=== PATIENT | female | born 1965 | race Caucasian/White ===

== ENCOUNTER 2019-10-09 11:05 | Emergency (ER) | payer BC ==
[~2019-10-09] VITALS: Ht 165.1 cm; Wt 81.2 kg
[~2019-10-09 11:05] MED LIST: OMEP20TA23 PO
[2019-10-09] MEDS ORDERED: LIDOcaine 1% W/epiNEPHrine 1:200,000 10ml vial IJ ONE (12:20)
[2019-10-09 12:38] LABS: BASOPHILS % (AUTO) 1.1 % (0-1); EOSINOPHILS % (AUTO) 1.3 % (0-6); HEMATOCRIT 23.4 % (35.0-45.0); HEMOGLOBIN 7.2 g/dl (12.0-16.0); LYMPHOCYTES # (AUTO) 0.5 X10'3 (1.1-4.8); LYMPHOCYTES % (AUTO) 27.9 % (21-51); MEAN CORPUSCULAR HEMOGLOBIN 22.4 PG (27.0-31.0); MEAN CORPUSCULAR HGB CONC 30.6 g/dL (33.0-36.5); MEAN PLATELET VOLUME 9.5 FL (7.4-10.4); MONOCYTES # (AUTO) 0.4 X10'3 (0-0.9); MONOCYTES % (AUTO) 19.8 % (2-12); NEUTROPHILS % (AUTO) 49.9 % (42-75); PLATELET COUNT 75 X10'3 (140-440); RED CELL DISTRIBUTION WIDTH 19.5 % (11.5-14.5); WHITE BLOOD COUNT 1.9 X10'3 (4.5-11.0)
[2019-10-09 12:53] LABS: ALANINE AMINOTRANSFERASE 15 U/L (12-78); ALBUMIN 2.3 G/DL (3.4-5.0); ALBUMIN/GLOBULIN RATIO 0.6 (1.1-1.5); ALKALINE PHOSPHATASE 221 IU/L (46-116); AMYLASE 31 U/L (25-115); ANION GAP 8 (8-16); ASPARTATE AMINO TRANSFERASE 49 U/L (10-37); BILIRUBIN,TOTAL 1.8 MG/DL (0.1-1.0); BLOOD UREA NITROGEN 5 MG/DL (7-18); BUN/CREATININE RATIO 9.3 (6.6-38.0); CALCIUM 7.7 MG/DL (8.5-10.1); CHLORIDE 106 MMOL/L (99-107); CREATININE 0.54 MG/DL (0.40-0.90); GLUCOSE 76 MG/DL (70-104); LIPASE 310 U/L (73-393); POTASSIUM 3.5 MMOL/L (3.5-5.1); SODIUM 138 MMOL/L (135-145); TOTAL CARBON DIOXIDE 23.8 MMOL/L (24-32); TOTAL PROTEIN 6.4 G/DL (6.4-8.2); eGFR > 90 ML/MIN
[2019-10-09 12:57] LABS: PLATELET ESTIMATE DECREASED; TOTAL CELLS COUNTED 100
[2019-10-09 12:58] LABS: ANISOCYTOSIS 2+; HYPOCHROMASIA 1+; MICROCYTOSIS 1+; POLYCHROMASIA FEW; SCHISTOCYTES FEW; TARGET CELLS FEW
[2019-10-09 13:04] LABS: PARTIAL THROMBOPLASTIN TIME 31 SECONDS (22-32)
[2019-10-09 13:54] LABS: CLARITY,URINE SLIGHTLY CLOUDY (Clear); COLOR,URINE YELLOW (Yellow); GLUCOSE, URINE NEGATIVE (Neg); KETONES,URINE NEGATIVE (Neg); LEUKOCYTE ESTERASE ,URINE NEGATIVE (Neg); NITRITES, URINE NEGATIVE (Neg); OCCULT BLOOD,URINE NEGATIVE (Neg); PH,URINE 5.5 (4.8-8.0); PROTEIN,URINE NEGATIVE (Neg)
[2019-10-09 14:10] LABS: BACTERIA,URINE FEW /HPF (Neg); MUCUS STRANDS FEW /LPF (Neg); RBC,URINE 0-2 /HPF (0-2); SQUAMOUS EPITHELIAL CELL,UR MANY /LPF (FEW); UA COLLECTION TYPE CLN CATCH MIDSTREAM; WBC,URINE 0-4 /HPF (0-4)
[2019-10-09 15:47] VITALS: BP 120/69
--- NOTE | 2019-10-09 15:59 | NUR ---
approx 10 L removed from paracentesis. Pt reported improvement in abdominal pressure and discomfort, relief of dyspnea.
== END 2019-10-09 15:50 | disposition home or self-care (01) ==
LOC: ER 11:06
DX: R18.8 Other ascites (principal); K74.60 Unspecified cirrhosis of liver; D50.9 Iron deficiency anemia, unspecified; D72.819 Decreased white blood cell count, unspecified; D69.6 Thrombocytopenia, unspecified; Z79.899 Other long term (current) drug therapy
CPT/HCPCS: 36415; 49082; 80053; 81001; 82150; 83690; 85025; 85610; 85730; 99285

== ENCOUNTER 2019-11-05 07:01 | Day surgery (SDC) | payer BC ==
[2019-11-05] VITALS (9 sets, daily range): BP systolic 97–112; BP diastolic 54–70
[~2019-11-05] VITALS: Ht 165.1 cm; Wt 74.8 kg
[~2019-11-05 07:01] MED LIST changes: +FURO-150 PO; +SPIR50TA5 PO
[2019-11-05] MEDS ORDERED: albumin 25% 100mL bottle x 1 IV PRN (07:35)
[2019-11-05] MEDS ORDERED: normal saline 1000ml 1,000 ML IV PRN (07:35)
== END 2019-11-05 11:00 | disposition home or self-care (01) ==
LOC: SSTAY O 07:01
PROVIDERS: ATTEND Radiology Diagnostic Radiology
DX: K70.31 Alcoholic cirrhosis of liver with ascites (principal); K21.9 Gastro-esophageal reflux disease without esophagitis; Z79.899 Other long term (current) drug therapy
CPT/HCPCS: 49083; C1729; P9047

== ENCOUNTER 2019-11-17 21:26 | Emergency (ER) | payer BC ==
[~2019-11-17] VITALS: Ht 165.1 cm; Wt 72.7 kg
[2019-11-17 22:32] LABS: BASOPHILS % (AUTO) 1.2 % (0-1); EOSINOPHILS # (AUTO) 0.1 X10'3 (0-0.9); EOSINOPHILS % (AUTO) 2.4 % (0-6); HEMATOCRIT 24.7 % (35.0-45.0); HEMOGLOBIN 7.5 g/dl (12.0-16.0); LYMPHOCYTES # (AUTO) 0.9 X10'3 (1.1-4.8); MEAN CORPUSCULAR HEMOGLOBIN 21.4 PG (27.0-31.0); MEAN CORPUSCULAR HGB CONC 30.2 g/dL (33.0-36.5); MEAN CORPUSCULAR VOLUME 70.9 FL (78-98); MEAN PLATELET VOLUME 8.5 FL (7.4-10.4); MONOCYTES # (AUTO) 0.4 X10'3 (0-0.9); MONOCYTES % (AUTO) 14.8 % (2-12); NEUTROPHILS # (AUTO) 1.6 X10'3 (1.8-7.7); NEUTROPHILS % (AUTO) 52.6 % (42-75); PLATELET COUNT 82 X10'3 (140-440); RED BLOOD COUNT 3.49 X10'6 (4.20-5.60); RED CELL DISTRIBUTION WIDTH 20.2 % (11.5-14.5)
[2019-11-17 22:44] LABS: PARTIAL THROMBOPLASTIN TIME 30 SECONDS (22-32)
[2019-11-17 22:46] LABS: ALANINE AMINOTRANSFERASE 14 U/L (12-78); ALBUMIN 2.3 G/DL (3.4-5.0); ALBUMIN/GLOBULIN RATIO 0.6 (1.1-1.5); ALKALINE PHOSPHATASE 186 IU/L (46-116); ANION GAP 9 (8-16); ASPARTATE AMINO TRANSFERASE 49 U/L (10-37); BILIRUBIN,TOTAL 1.4 MG/DL (0.1-1.0); BLOOD UREA NITROGEN 8 MG/DL (7-18); BUN/CREATININE RATIO 12.7 (6.6-38.0); CALCIUM 7.7 MG/DL (8.5-10.1); CHLORIDE 106 MMOL/L (99-107); CREATININE 0.63 MG/DL (0.40-0.90); GLUCOSE 74 MG/DL (70-104); POTASSIUM 3.4 MMOL/L (3.5-5.1); SODIUM 138 MMOL/L (135-145); TOTAL CARBON DIOXIDE 22.9 MMOL/L (24-32); TOTAL PROTEIN 6.4 G/DL (6.4-8.2); eGFR > 90 ML/MIN
[2019-11-17 22:59] LABS: MICROCYTOSIS 1+; PLATELET ESTIMATE DECREASED; POIKILOCYTOSIS 1+; TOTAL CELLS COUNTED 100
[2019-11-17 23:00] LABS: ELLIPTOCYTES FEW
--- NOTE | 2019-11-17 23:45 | NUR ---
DR SMYTH AT BEDSIDE FOR PARACENTISIS.
--- NOTE | 2019-11-17 23:55 | NUR ---
PATIENT OXYGEN SAT 87% PLACED ON NC 2L AT THIS TIME O2 SAT 92%
[2019-11-18 00:39] VITALS: BP 116/73
== END 2019-11-18 00:41 | disposition home or self-care (01) ==
LOC: ER 21:26
DX: R18.8 Other ascites (principal); R06.02 Shortness of breath; R05 Cough; R51 Headache; M54.2 Cervicalgia; F17.200 Nicotine dependence, unspecified, uncomplicated; Z72.89 Other problems related to lifestyle; Z79.899 Other long term (current) drug therapy
CPT/HCPCS: 36415; 49083; 71045; 80053; 85025; 85610; 85730; 99285

== ENCOUNTER 2019-11-19 07:15 | Day surgery (SDC) | payer BC ==
[~2019-11-19] VITALS: Ht 165.1 cm; Wt 73.0 kg
[2019-11-19] MEDS ORDERED: albumin 25% 100mL bottle x 1 IV PRN (07:35)
[2019-11-19] MEDS ORDERED: normal saline 1000ml 1,000 ML IV PRN (07:35)
[2019-11-19 08:02] VITALS: BP 114/78
[2019-11-19] MEDS ORDERED: dexamethasone 4mg tablet PO ONE (08:45)
[2019-11-19 09:50] VITALS: BP 108/71
[2019-11-19 10:00] VITALS: BP 113/73
[2019-11-19 10:15] VITALS: BP 115/78
[2019-11-19 10:30] VITALS: BP 117/74
== END 2019-11-19 10:40 | disposition home or self-care (01) ==
LOC: SSTAY O 07:15 → MED 3N 07:15 → SSTAY O 10:40
PROVIDERS: ATTEND Radiology Vascular & Interventional Radiology
DX: K70.31 Alcoholic cirrhosis of liver with ascites (principal); R14.0 Abdominal distension (gaseous); J90 Pleural effusion, not elsewhere classified; K21.9 Gastro-esophageal reflux disease without esophagitis; E87.6 Hypokalemia; F10.10 Alcohol abuse, uncomplicated; Z79.899 Other long term (current) drug therapy
CPT/HCPCS: 32555; 71045; 76705; C1729

== ENCOUNTER 2019-11-26 15:20 | Emergency (ER) | payer BC ==
[~2019-11-26] VITALS: Ht 165.1 cm; Wt 74.0 kg
[2019-11-26 15:23] VITALS: BP 128/78
[2019-11-26] MEDS ORDERED: ondansetron 4mg rapidly disintigrating tab PO ONE (16:20)
== END 2019-11-26 17:16 | disposition home or self-care (01) ==
LOC: ER 15:20
DX: R18.8 Other ascites (principal); K74.60 Unspecified cirrhosis of liver; Z79.899 Other long term (current) drug therapy
CPT/HCPCS: 49082; 99283; 99285

== ENCOUNTER 2019-11-30 06:02 | Day surgery (SDC) | payer BC ==
[~2019-11-30] VITALS: Ht 165.1 cm; Wt 72.5 kg
[2019-11-30] VITALS (8 sets, daily range): BP systolic 102–119; BP diastolic 53–73
[2019-11-30] MEDS ORDERED: albuterol INH (06:19)
[2019-11-30] MEDS ORDERED: albumin 25% 100mL bottle x 1 IV PRN (06:20)
[2019-11-30] MEDS ORDERED: normal saline 1000ml 1,000 ML IV PRN (06:20)
== END 2019-11-30 10:15 | disposition home or self-care (01) ==
LOC: SSTAY O 06:02 → MED 3N 06:02 → U 10:15 → SSTAY O 10:15
PROVIDERS: ATTEND Radiology Diagnostic Radiology
DX: J90 Pleural effusion, not elsewhere classified (principal); K70.31 Alcoholic cirrhosis of liver with ascites; K21.9 Gastro-esophageal reflux disease without esophagitis; E87.6 Hypokalemia; F10.10 Alcohol abuse, uncomplicated; Z79.899 Other long term (current) drug therapy
CPT/HCPCS: 32555; 49083; 71045; C1729; P9047

== ENCOUNTER 2019-12-12 01:11 | Inpatient (IN) | payer BC ==
[~2019-12-12] VITALS: Ht 165.1 cm; Wt 65.9 kg
[~2019-12-12 01:11] MED LIST changes: +albuterol INH
[2019-12-12] MEDS ORDERED: normal saline 1000ML IV soln IVB ONE (01:20)
[2019-12-12 02:04] LABS: BASOPHILS % (AUTO) 1.3 % (0-1); EOSINOPHILS % (AUTO) 0.8 % (0-6); HEMATOCRIT 26.4 % (35.0-45.0); HEMOGLOBIN 7.9 g/dl (12.0-16.0); LYMPHOCYTES # (AUTO) 1.1 X10'3 (1.1-4.8); LYMPHOCYTES % (AUTO) 55.2 % (21-51); MEAN CORPUSCULAR HGB CONC 29.9 g/dL (33.0-36.5); MEAN CORPUSCULAR VOLUME 70.3 FL (78-98); MEAN PLATELET VOLUME 8.7 FL (7.4-10.4); MONOCYTES # (AUTO) 0.2 X10'3 (0-0.9); MONOCYTES % (AUTO) 10.5 % (2-12); NEUTROPHILS # (AUTO) 0.6 X10'3 (1.8-7.7); NEUTROPHILS % (AUTO) 32.2 % (42-75); RED BLOOD COUNT 3.75 X10'6 (4.20-5.60)
[2019-12-12 02:08] LABS: PLATELET COUNT 42 X10'3 (140-440)
[2019-12-12 02:23] LABS: URINE AMPHETAMINE SCREEN NEGATIVE (Neg); URINE BARBITUATE SCREEN NEGATIVE (Neg); URINE BENZODIAZEPINES SCREEN NEGATIVE (Neg); URINE CANNABINOID SCREEN NEGATIVE (Neg); URINE COCAINE SCREEN NEGATIVE (Neg); URINE METHADONE SCREEN NEGATIVE (Neg); URINE OPIATE SCREEN NEGATIVE (Neg); URINE PHENCYCLIDINE SCREEN NEGATIVE (Neg)
[2019-12-12 02:33] LABS: PARTIAL THROMBOPLASTIN TIME 29 SECONDS (22-32)
[2019-12-12 02:39] LABS: CLARITY,URINE SLIGHTLY CLOUDY (Clear); COLOR,URINE YELLOW (Yellow); GLUCOSE, URINE NEGATIVE (Neg); KETONES,URINE NEGATIVE (Neg); LEUKOCYTE ESTERASE ,URINE NEGATIVE (Neg); NITRITES, URINE NEGATIVE (Neg); OCCULT BLOOD,URINE NEGATIVE (Neg); PROTEIN,URINE NEGATIVE (Neg)
[2019-12-12 02:44] LABS: UA COLLECTION TYPE CLN CATCH MIDSTREAM
[2019-12-12 02:45] LABS: LACTIC SEPSIS 2.2 MMOL/L (0.4-2.0)
[2019-12-12 02:45] LABS: BACTERIA,URINE FEW /HPF (Neg); MUCUS STRANDS FEW /LPF (Neg); RBC,URINE 0-2 /HPF (0-2); SQUAMOUS EPITHELIAL CELL,UR MANY /LPF (FEW); WBC,URINE 0-4 /HPF (0-4)
[2019-12-12 02:54] LABS: ALANINE AMINOTRANSFERASE 21 U/L (12-78); ALBUMIN 2.4 G/DL (3.4-5.0); ALBUMIN/GLOBULIN RATIO 0.6 (1.1-1.5); ALKALINE PHOSPHATASE 220 IU/L (46-116); ANION GAP 8 (8-16); ASPARTATE AMINO TRANSFERASE 62 U/L (10-37); BILIRUBIN,TOTAL 1.6 MG/DL (0.1-1.0); BLOOD UREA NITROGEN 8 MG/DL (7-18); BUN/CREATININE RATIO 14.3 (6.6-38.0); CALCIUM 7.5 MG/DL (8.5-10.1); CHLORIDE 110 MMOL/L (99-107); CREATININE 0.56 MG/DL (0.40-0.90); GLUCOSE 87 MG/DL (70-104); LIPASE 889 U/L (73-393); POTASSIUM 3.7 MMOL/L (3.5-5.1); SODIUM 142 MMOL/L (135-145); TOTAL CARBON DIOXIDE 23.8 MMOL/L (24-32); TOTAL PROTEIN 6.5 G/DL (6.4-8.2); eGFR > 90 ML/MIN
[2019-12-12] MEDS ORDERED: bisacodyl 10mg suppository rectal RC PRN (03:05)
[2019-12-12] MEDS ORDERED: HYDROmorphone inj. 0.5 MG/0.5 ML DISP.SYRIN IV PRN (03:05)
[2019-12-12] MEDS ORDERED: diphenhydrAMINE 25mg capsule PO PRN (03:05)
[2019-12-12] MEDS ORDERED: haloperidol 5mg tablet PO PRN (03:05)
[2019-12-12] MEDS ORDERED: potassium CL 10mEq/100ml bag 100 ML IV PRN ×2 (03:05)
[2019-12-12] MEDS ORDERED: magnesium 4gm in 100ml NS 100 ML IV PRN (03:05)
[2019-12-12] MEDS ORDERED: thiamine 100mg/ml 2ml inj. IV ONE (03:05)
[2019-12-12] MEDS ORDERED: acetaminophen 325mg tablet PO PRN ×2 (03:05)
[2019-12-12] MEDS ORDERED: dextrose 50%-water 50ml dispensing syringe IV PRN (03:05)
[2019-12-12] MEDS ORDERED: HYDROmorphone 1 mg/ml syringe IV PRN (03:05)
[2019-12-12] MEDS ORDERED: potassium Cl 20 mEq SR tablet PO PRN ×2 (03:05)
[2019-12-12] MEDS ORDERED: haloperidol lactate 5mg/ml inj IM PRN (03:05)
[2019-12-12] MEDS ORDERED: magnesium 2GM in 50ml NS 50 ML IV PRN (03:05)
[2019-12-12] MEDS ORDERED: mag hydrox/Alum hydrox/simeth 30ml oral suspension PO PRN (03:05)
[2019-12-12] MEDS ORDERED: diphenhydrAMINE 50 mg/ml inj IV PRN (03:05)
[2019-12-12] MEDS ORDERED: magnesium hydroxide 30ml (MOM) UD suspension PO PRN (03:05)
[2019-12-12 03:09] LABS: ETHANOL 0.392 GM/DL (0.0-0.010)
--- NOTE | 2019-12-12 04:30 | NUR ---
RECIEVED REPORT FROM GOLDIE MUHAMMAD IN ER. PATIENT ON THE WAY.
[2019-12-12 04:45] LABS: PLATELET ESTIMATE DECREASED; TOTAL CELLS COUNTED 100
[2019-12-12 04:47] LABS: ANISOCYTOSIS 3+; HYPOCHROMASIA 1+; MICROCYTOSIS 1+
[2019-12-12 05:15] VITALS: BP 90/42
--- NOTE | 2019-12-12 06:22 | NUR ---
Problems reprioritized. Patient report given, questions answered & plan of care reviewed with BOB MUHAMMAD.
[2019-12-12] MEDS: K and/or MAG REPLACEMENT MC SCH ×2 (08:00→19:16)
[2019-12-12] MEDS: furosemide 40mg/4ml inj IV SCH (08:00)
[2019-12-12] MEDS: multivitamins, therapeutics tablet PO SCH (08:24)
[2019-12-12] MEDS: thiamine 100mg tablet PO SCH (08:24)
[2019-12-12] MEDS: spironolactone 50 MG tablet PO SCH ×2 (08:24→19:24)
[2019-12-12] MEDS: pantoprazole 40mg Tablet.DR PO SCH (08:24)
[2019-12-12] MEDS: folic acid 1mg tablet PO SCH (08:24)
[2019-12-12 08:27] VITALS: BP 117/72
--- NOTE | 2019-12-12 09:14 | NUR ---
Page sent to Dr. Pritchett PAGER ID: [phone] MESSAGE: [phone] Selena Poon- Patient here for ETOH 0.392 , Hr 97, would you like a tele monitor? Catherine [phone]
[2019-12-12 10:00] VITALS: BP 112/64
[2019-12-12] MEDS: LORazepam 2 mg/ml vial IV PRN ×3 (10:50→19:52)
--- NOTE | 2019-12-12 12:31 | NUR ---
MD Pritchett states tele monitor is not needed.
[2019-12-12 18:00] VITALS: BP 108/66
--- NOTE | 2019-12-12 18:09 | NUR ---
Problems reprioritized. Patient report given, questions answered & plan of care reviewed with Bree MUHAMMAD.
--- NOTE | 2019-12-12 18:10 | NUR ---
Received report from primary care nurse Deborah MUHAMMAD. Assumed patient care. Patient is awake and alert on 2LNC. In no apparent distress eating her dinner. Call light and items of frequent use within reach. Will continue to monitor for changes.
--- NOTE | 2019-12-12 20:40 | NUR ---
Paged MD Alvarado regarding patient's admitting diagnosis including ETOH and possible need for applying setter machine. No new orders.
[2019-12-12] MEDS ORDERED: temazepam 15mg capsule PO PRN (21:00)
[2019-12-12 22:00] VITALS: BP 118/72
[2019-12-13] VITALS (12 sets, daily range): BP systolic 102–142; BP diastolic 60–98
[2019-12-13] MEDS: LORazepam 2 mg/ml vial IV PRN ×4 (00:50→22:53)
[2019-12-13 05:07] LABS: EOSINOPHILS % (AUTO) 1.2 % (0-6); LYMPHOCYTES # (AUTO) 0.4 X10'3 (1.1-4.8); MONOCYTES # (AUTO) 0.2 X10'3 (0-0.9); NEUTROPHILS # (AUTO) 0.3 X10'3 (1.8-7.7)
[2019-12-13 05:17] LABS: BASOPHILS % (AUTO) 0.9 % (0-1); LYMPHOCYTES % (AUTO) 43.2 % (21-51); MEAN CORPUSCULAR HEMOGLOBIN 21.1 PG (27.0-31.0); MEAN CORPUSCULAR HGB CONC 30.5 g/dL (33.0-36.5); MEAN CORPUSCULAR VOLUME 69.1 FL (78-98); MEAN PLATELET VOLUME 8.8 FL (7.4-10.4); MONOCYTES % (AUTO) 22.8 % (2-12); NEUTROPHILS % (AUTO) 31.9 % (42-75); RED BLOOD COUNT 3.07 X10'6 (4.20-5.60); RED CELL DISTRIBUTION WIDTH 20.5 % (11.5-14.5)
[2019-12-13 05:43] LABS: HEMOGLOBIN 6.5 g/dl (12.0-16.0)
[2019-12-13 05:44] LABS: HEMATOCRIT 21.2 % (35.0-45.0)
[2019-12-13 05:47] LABS: PLATELET COUNT 28 X10'3 (140-440)
[2019-12-13 06:03] LABS: ALANINE AMINOTRANSFERASE 17 U/L (12-78); ALBUMIN/GLOBULIN RATIO 0.5 (1.1-1.5); ALKALINE PHOSPHATASE 179 IU/L (46-116); ANION GAP 9 (8-16); ASPARTATE AMINO TRANSFERASE 52 U/L (10-37); BILIRUBIN,TOTAL 1.9 MG/DL (0.1-1.0); BLOOD UREA NITROGEN 8 MG/DL (7-18); BUN/CREATININE RATIO 15.4 (6.6-38.0); CALCIUM 7.7 MG/DL (8.5-10.1); CHLORIDE 106 MMOL/L (99-107); CREATININE 0.52 MG/DL (0.40-0.90); GLUCOSE 68 MG/DL (70-104); MAGNESIUM 1.4 MG/DL (1.5-2.4); POTASSIUM 3.6 MMOL/L (3.5-5.1); SODIUM 137 MMOL/L (135-145); TOTAL CARBON DIOXIDE 22.1 MMOL/L (24-32); TOTAL PROTEIN 5.7 G/DL (6.4-8.2); eGFR > 90 ML/MIN
--- NOTE | 2019-12-13 06:44 | NUR ---
Reported off to Iwona MUHAMMAD. Patient is awake and alert on 2.5LNC. In no apparent distress. Call light and items of frequent use within reach.
[2019-12-13 06:53] LABS: TOTAL CELLS COUNTED 100
[2019-12-13 06:56] LABS: ANISOCYTOSIS 3+; HYPOCHROMASIA 1+; MICROCYTOSIS 2+; PLATELET ESTIMATE DECREASED; POLYCHROMASIA 1+
--- NOTE | 2019-12-13 07:09 | NUR ---
Patient in room ORTHO 4012. I have received report from Bree MUHAMMAD and had the opportunity to ask questions and assume patient care.
[2019-12-13] MEDS: K and/or MAG REPLACEMENT MC SCH ×2 (08:00→20:00)
[2019-12-13] MEDS: furosemide 40mg/4ml inj IV SCH (08:09)
[2019-12-13] MEDS: multivitamins, therapeutics tablet PO SCH (08:09)
[2019-12-13] MEDS: spironolactone 50 MG tablet PO SCH ×2 (08:09→20:26)
[2019-12-13] MEDS: pantoprazole 40mg Tablet.DR PO SCH (08:10)
[2019-12-13] MEDS: folic acid 1mg tablet PO SCH (08:10)
[2019-12-13] MEDS: thiamine 100mg tablet PO SCH (08:10)
[2019-12-13] MEDS: magnesium Cl slow-release 64mg tablet PO PRN ×2 (08:11→20:26)
--- NOTE | 2019-12-13 10:15 | NUR ---
Informed Dr. Pritchett of WBC 1.0, platelets of 28, H&H 6.5/25.1, HR 125. ordered occult blood and manager social work. aware that pt is receiving 1 unit of platelets and 1 unit of blood. stated to recheck lab 2hrs after transfusion.
[2019-12-13] MEDS ORDERED: LIDOcaine 2% 10ml TOPICAL JELLY (Urojet) TP ONE (10:35)
[2019-12-13] MEDS ORDERED: TBO-filgrastim 300 MCG/0.5 ML inj. SQ ONE (14:15)
[2019-12-13 16:16] LABS: HEMATOCRIT 24.2 % (35.0-45.0); HEMOGLOBIN 7.5 g/dl (12.0-16.0); MEAN CORPUSCULAR HEMOGLOBIN 21.9 PG (27.0-31.0); MEAN CORPUSCULAR VOLUME 70.6 FL (78-98); MEAN PLATELET VOLUME 8.5 FL (7.4-10.4); RED BLOOD COUNT 3.42 X10'6 (4.20-5.60); RED CELL DISTRIBUTION WIDTH 20.7 % (11.5-14.5)
[2019-12-13 16:27] LABS: PLATELET COUNT 40 X10'3 (140-440)
[2019-12-13 16:28] LABS: WHITE BLOOD COUNT 1.3 X10'3 (4.5-11.0)
[2019-12-13 18:12] LABS: OCCULT BLOOD STOOL NEGATIVE (Neg)
--- NOTE | 2019-12-13 18:50 | NUR ---
Patient in room ORTHO 4012. I have received report from petrona Bustillo and had the opportunity to ask questions and assume patient care.
--- NOTE | 2019-12-13 18:55 | NUR ---
Problems reprioritized. Patient report given, questions answered & plan of care reviewed with Karen MUHAMMAD.
[2019-12-13] MEDS: ondansetron/PF 4mg/2ml inj IV PRN (22:53)
[2019-12-14] VITALS (10 sets, daily range): BP systolic 106–130; BP diastolic 61–82
--- NOTE | 2019-12-14 02:30 | NUR ---
BS 66. apple juice given. will check BS again.
[2019-12-14] MEDS ORDERED: LORazepam 2 mg/ml vial IV PRN (03:05)
[2019-12-14] MEDS ORDERED: LORazepam 1 MG tablet PO PRN (03:05)
[2019-12-14] MEDS: ondansetron/PF 4mg/2ml inj IV PRN (04:35)
--- NOTE | 2019-12-14 06:35 | NUR ---
Problems reprioritized. Patient report given, questions answered & plan of care reviewed with petrona Stephenson.
--- NOTE | 2019-12-14 06:48 | NUR ---
Patient in room ORTHO 4012. I have received report from JB Jones and had the opportunity to ask questions and assume patient care.
[2019-12-14] MEDS: furosemide 40mg/4ml inj IV SCH (07:09)
[2019-12-14] MEDS: spironolactone 50 MG tablet PO SCH (07:16)
[2019-12-14] MEDS: folic acid 1mg tablet PO SCH (07:17)
[2019-12-14] MEDS: multivitamins, therapeutics tablet PO SCH (07:17)
[2019-12-14] MEDS: thiamine 100mg tablet PO SCH (07:17)
[2019-12-14] MEDS: pantoprazole 40mg Tablet.DR PO SCH (07:17)
[2019-12-14] MEDS: K and/or MAG REPLACEMENT MC SCH (07:30)
[2019-12-14 08:19] LABS: BASOPHILS % (AUTO) 0.4 % (0-1); EOSINOPHILS % (AUTO) 0.5 % (0-6); HEMOGLOBIN 9.7 g/dl (12.0-16.0); LYMPHOCYTES # (AUTO) 0.6 X10'3 (1.1-4.8); LYMPHOCYTES % (AUTO) 6.8 % (21-51); MEAN CORPUSCULAR HEMOGLOBIN 22.9 PG (27.0-31.0); MEAN CORPUSCULAR HGB CONC 31.4 g/dL (33.0-36.5); MEAN PLATELET VOLUME 8.6 FL (7.4-10.4); MONOCYTES # (AUTO) 0.6 X10'3 (0-0.9); NEUTROPHILS % (AUTO) 86.3 % (42-75); PLATELET COUNT 59 X10'3 (140-440); RED BLOOD COUNT 4.24 X10'6 (4.20-5.60); RED CELL DISTRIBUTION WIDTH 21.5 % (11.5-14.5); WHITE BLOOD COUNT 9.3 X10'3 (4.5-11.0)
[2019-12-14 08:40] LABS: ALBUMIN 2.7 G/DL (3.4-5.0); ALKALINE PHOSPHATASE 184 IU/L (46-116); ANION GAP 6 (8-16); ASPARTATE AMINO TRANSFERASE 61 U/L (10-37); BILIRUBIN,TOTAL 6.9 MG/DL (0.1-1.0); BLOOD UREA NITROGEN 7 MG/DL (7-18); BUN/CREATININE RATIO 9.9 (6.6-38.0); CALCIUM 8.3 MG/DL (8.5-10.1); CHLORIDE 105 MMOL/L (99-107); CREATININE 0.71 MG/DL (0.40-0.90); GLUCOSE 76 MG/DL (70-104); MAGNESIUM 1.4 MG/DL (1.5-2.4); POTASSIUM 3.7 MMOL/L (3.5-5.1); SODIUM 139 MMOL/L (135-145); TOTAL CARBON DIOXIDE 27.7 MMOL/L (24-32); eGFR 86 ML/MIN
[2019-12-14 08:43] LABS: ALANINE AMINOTRANSFERASE 16 U/L (12-78); ALBUMIN/GLOBULIN RATIO 0.7 (1.1-1.5); TOTAL PROTEIN 6.8 G/DL (6.4-8.2)
[2019-12-14 09:59] LABS: PLATELET ESTIMATE DECREASED
[2019-12-14 10:01] LABS: ANISOCYTOSIS 3+; HYPOCHROMASIA 1+; MICROCYTOSIS 1+; POLYCHROMASIA 1+
[2019-12-14 10:41] LABS: BFSOURCE RIGHT PLEURAL FLD
[2019-12-14 10:58] LABS: GLUCOSE,BODY FLUID 79 MG/DL; LDH,BODY FLUID 81 U/L
[2019-12-14] MEDS ORDERED: thiamine tablet PO (11:11)
[2019-12-14] MEDS ORDERED: MULT-1179 PO (11:11)
[2019-12-14] MEDS ORDERED: folic acid tablet PO (11:11)
[2019-12-14] MEDS ORDERED: FURO-150 PO (11:11)
[2019-12-14 12:18] LABS: TOTAL PROTEIN,BODY FLUID < 2.0 G/DL
[2019-12-14 12:42] LABS: BFAPPEAR CLOUDY
[2019-12-14 12:43] LABS: BF RBC COUNT 16400 /CU MM; BF WBC COUNT 246 /CU MM (0-1000); BFCOLOR AMBER; BFVOLUME 52 ML; LYMPHOCYTES,BODY FLUID 37 %; MONOCYTES,BODY FLUID 41 %; NEUTROPHILS,BODY FLUID 22 %; OTHER CELLS,BODY FLUID PLASMA CELLS
[2019-12-14 12:44] LABS: BF MESOTHELIAL CELLS MANY
--- NOTE | 2019-12-14 13:52 | NUR ---
Patient discharge home via family member and taken from unit via wheelchair with primary nurse. Patient PIV removed with cannula intact and bleeding well controlled. patient was alert, oriented and in no apparent distress at time of discharge. [facility] in [place] per patient request. Patient was dressed and took all belongings with her at time of discharge. Patient was given discharge instructions and these were discussed with her as well. Patient stated an understanding of instructions although she was very distracted at time of instruction with her wallet that she was going. When asked if patient would like primary nurse to repeat the instructions patient replied, "I am listening". Patient continued looking through her wallet for the remainder of education. Patient was educated about the risks after a thoracentesis and patient stated she has had one before and already knows what to look for. When patient was taken down stairs to her sisters truck, primary nurse briefly discussed risk factors and ensuring the patient follows up with PCP.
[2019-12-16] MEDS ORDERED: LORazepam 1 MG tablet PO PRN (03:05)
[2019-12-16] MEDS ORDERED: LORazepam 2 mg/ml vial IV PRN (03:05)
== END 2019-12-14 13:30 | disposition home or self-care (01) | DRG 432 ==
LOC: ER 01:11 → ED HOLD 03:01 → ORTHO 4S 04:40
PROVIDERS: ADMIT Family Medicine; ATTEND Internal Medicine
PROC: 30233R1 Transfusion of Nonautologous Platelets into Peripheral Vein, Percutaneous Approach (ICD-10-PCS; 2019-12-13)
PROC: 30233N1 Transfusion of Nonautologous Red Blood Cells into Peripheral Vein, Percutaneous Approach (ICD-10-PCS; 2019-12-13)
PROC: 0W993ZX Drainage of Right Pleural Cavity, Percutaneous Approach, Diagnostic (ICD-10-PCS; principal; 2019-12-14)
DX: K70.31 Alcoholic cirrhosis of liver with ascites (principal); K85.20 Alcohol induced acute pancreatitis without necrosis or infection; K76.6 Portal hypertension; D61.818 Other pancytopenia; J91.8 Pleural effusion in other conditions classified elsewhere; I86.8 Varicose veins of other specified sites; F10.229 Alcohol dependence with intoxication, unspecified; F17.210 Nicotine dependence, cigarettes, uncomplicated; R74.0 Nonspecific elevation of levels of transaminase and lactic acid dehydrogenase [LDH]; Z71.6 Tobacco abuse counseling
CPT/HCPCS: 32555; 36415; 36430; 71045; 74176; 80053; 80305; 80320; 81001; 82140; 82272; 82945; 82948; 83605; 83615; 83690; 83735; 83986; 84157; 84484; 85025; 85027; 85610; 85730; 86885; 86900; 86901; 86920; 87070; 87081; 89051; 93005; 96360; 99285; G0378; J1442; J1940; J2060; J2405; J3411; J7030; P9016; P9035

== ENCOUNTER 2019-12-24 23:52 | Emergency (ER) | payer BC ==
[~2019-12-24] VITALS: Ht 165.1 cm; Wt 77.3 kg
[~2019-12-24 23:52] MED LIST changes: +MULT-1179 PO; -albuterol INH; +folic acid tablet PO; +thiamine tablet PO
[2019-12-25] MEDS ORDERED: morphine 4 MG/ML inj SYRINge IM ONE (00:30)
[2019-12-25 07:22] VITALS: BP 107/68
== END 2019-12-25 07:24 | disposition home or self-care (01) ==
LOC: ER 23:53
DX: R18.8 Other ascites (principal); Z79.899 Other long term (current) drug therapy
CPT/HCPCS: 96372; 99285; J2270

== ENCOUNTER 2019-12-25 07:48 | Day surgery (SDC) | payer BC ==
[~2019-12-25] VITALS: Ht 165.1 cm; Wt 71.2 kg
[2019-12-25 08:00] VITALS: BP 102/74
[2019-12-25] MEDS ORDERED: albumin 25% 100mL bottle x 1 IV PRN (08:05)
[2019-12-25] MEDS ORDERED: normal saline 1000ml 1,000 ML IV PRN (08:05)
[2019-12-25 09:00] VITALS: BP 103/73
[2019-12-25 09:15] VITALS: BP 109/73
[2019-12-25 09:30] VITALS: BP 111/71
[2019-12-25 09:45] VITALS: BP 107/75
[2019-12-25 10:00] VITALS: BP 106/67
== END 2019-12-25 10:25 | disposition home or self-care (01) ==
LOC: SSTAY O 07:48
PROVIDERS: ATTEND Radiology Vascular & Interventional Radiology
DX: R18.8 Other ascites (principal); K74.60 Unspecified cirrhosis of liver; K21.9 Gastro-esophageal reflux disease without esophagitis; E87.6 Hypokalemia; F10.10 Alcohol abuse, uncomplicated; Z79.899 Other long term (current) drug therapy
CPT/HCPCS: 49083; C1729

== ENCOUNTER 2020-01-05 09:23 | Day surgery (SDC) | payer BC ==
[~2020-01-05] VITALS: Ht 165.1 cm; Wt 77.3 kg
[2020-01-05] MEDS ORDERED: fentaNYL/PF 50MCG/1 ML 2ML syringe ONE (09:24)
[2020-01-05] MEDS ORDERED: MIDAZolam 5mg/5ml vial ONE (09:24)
[2020-01-05] MEDS ORDERED: LIDOcaine Viscous 15ml cup ONE (09:25)
[2020-01-05 09:30] VITALS: BP 128/80
[2020-01-05] MEDS ORDERED: OMEP40CA13 PO (09:34)
[2020-01-05] MEDS ORDERED: FURO-150 PO (09:35)
[2020-01-05] MEDS ORDERED: SPIR50TA5 PO (09:35)
[2020-01-05] MEDS ORDERED: FOLI0.8C PO (09:39)
[2020-01-05] MEDS ORDERED: VIT B1 (09:40)
[2020-01-05 11:23] VITALS: BP 136/89
[2020-01-05 11:33] VITALS: BP 129/91
[2020-01-05 11:43] VITALS: BP 223/90
[2020-01-05 11:53] VITALS: BP 124/87
== END 2020-01-05 12:15 | disposition home or self-care (01) ==
LOC: GI LAB 09:23
PROVIDERS: ATTEND Internal Medicine Gastroenterology
DX: I85.00 Esophageal varices without bleeding (principal); K44.9 Diaphragmatic hernia without obstruction or gangrene
CPT/HCPCS: 43244; 99152; J2250; J3010; J7040; A4620

== ENCOUNTER 2020-01-11 09:01 | Day surgery (SDC) | payer BC ==
[~2020-01-11] VITALS: Ht 165.1 cm; Wt 70.1 kg
[2020-01-11 09:00] VITALS: BP 118/75
[~2020-01-11 09:01] MED LIST changes: +FOLI0.8C PO; -MULT-1179 PO; -OMEP20TA23 PO; +OMEP40CA13 PO; +VIT B1; -folic acid tablet PO; -thiamine tablet PO
[2020-01-11] MEDS ORDERED: normal saline 1000ml 1,000 ML IV PRN (09:15)
[2020-01-11] MEDS ORDERED: albumin 25% 100mL bottle x 1 IV PRN (09:15)
[2020-01-11 09:20] VITALS: BP 107/73
[2020-01-11 09:35] VITALS: BP 112/75
[2020-01-11 09:50] VITALS: BP 100/69
[2020-01-11 10:05] VITALS: BP 101/72
[2020-01-11 10:20] VITALS: BP 106/70
== END 2020-01-11 10:30 | disposition home or self-care (01) ==
LOC: SSTAY O 09:01
PROVIDERS: ATTEND Radiology Vascular & Interventional Radiology
DX: K70.31 Alcoholic cirrhosis of liver with ascites (principal); K21.9 Gastro-esophageal reflux disease without esophagitis; E87.6 Hypokalemia; F10.10 Alcohol abuse, uncomplicated; Z79.899 Other long term (current) drug therapy
CPT/HCPCS: 49083

== ENCOUNTER 2020-01-22 06:32 | Day surgery (SDC) | payer BC ==
[~2020-01-22] VITALS: Ht 165.1 cm; Wt 73.2 kg
[2020-01-22] MEDS ORDERED: albumin 25% 100mL bottle x 1 IV PRN (06:55)
[2020-01-22 07:33] VITALS: BP 101/75
[2020-01-22 08:08] VITALS: BP 139/56
[2020-01-22 08:15] VITALS: BP 110/81
[2020-01-22 08:30] VITALS: BP 102/69
[2020-01-22 08:45] VITALS: BP 105/74
[2020-01-22 08:56] VITALS: BP 109/74
== END 2020-01-22 09:10 | disposition home or self-care (01) ==
LOC: SSTAY O 06:32
PROVIDERS: ATTEND Radiology Vascular & Interventional Radiology
DX: R18.8 Other ascites (principal); E87.6 Hypokalemia; K21.9 Gastro-esophageal reflux disease without esophagitis; K74.60 Unspecified cirrhosis of liver; F10.10 Alcohol abuse, uncomplicated; Z79.899 Other long term (current) drug therapy
CPT/HCPCS: 49083; P9047

== ENCOUNTER 2020-02-04 06:09 | Day surgery (SDC) | payer BC ==
[~2020-02-04] VITALS: Ht 165.1 cm; Wt 75.0 kg
[2020-02-04] VITALS (8 sets, daily range): BP systolic 97–109; BP diastolic 62–74
[2020-02-04] MEDS ORDERED: albumin 25% 100mL bottle x 1 IV PRN (06:35)
[2020-02-04] MEDS ORDERED: normal saline 1000ml 1,000 ML IV PRN (06:35)
== END 2020-02-04 10:15 | disposition home or self-care (01) ==
LOC: SSTAY O 06:09
PROVIDERS: ATTEND Radiology Diagnostic Radiology
DX: K70.31 Alcoholic cirrhosis of liver with ascites (principal); K21.9 Gastro-esophageal reflux disease without esophagitis; F10.10 Alcohol abuse, uncomplicated; E87.6 Hypokalemia; Z79.899 Other long term (current) drug therapy
CPT/HCPCS: 49083; P9047

== ENCOUNTER 2020-02-16 06:34 | Day surgery (SDC) | payer BC ==
[2020-02-16] VITALS (9 sets, daily range): BP systolic 104–128; BP diastolic 68–79
[~2020-02-16] VITALS: Ht 165.1 cm; Wt 77.2 kg
[2020-02-16] MEDS ORDERED: normal saline 1000ml 1,000 ML IV PRN (06:50)
--- NOTE | 2020-02-16 07:40 | NUR ---
pt vomited 150ml clear sharon fluid. pt states she "feels better". gave pt another emesis bag.
[2020-02-16] MEDS ORDERED: ondansetron/PF 4mg/2ml inj IM ONE (08:05)
[2020-02-16] MEDS ORDERED: ondansetron/PF 4mg/2ml inj IV ONE (08:15)
[2020-02-16] MEDS: albumin 25% 100mL bottle x 1 IV PRN ×2 (09:02→09:25)
== END 2020-02-16 10:15 | disposition home or self-care (01) ==
LOC: SSTAY O 06:34
PROVIDERS: ATTEND Radiology Diagnostic Radiology
DX: K70.31 Alcoholic cirrhosis of liver with ascites (principal); E87.6 Hypokalemia; K21.9 Gastro-esophageal reflux disease without esophagitis; Z79.899 Other long term (current) drug therapy
CPT/HCPCS: 49083; J2405; P9047

== ENCOUNTER 2020-02-26 07:01 | Day surgery (SDC) | payer BC ==
[~2020-02-26] VITALS: Ht 165.1 cm; Wt 79.4 kg
[2020-02-26] VITALS (8 sets, daily range): BP systolic 104–121; BP diastolic 68–77
[2020-02-26] MEDS ORDERED: albumin 25% 100mL bottle x 1 IV PRN (07:15)
[2020-02-26] MEDS ORDERED: normal saline 1000ml 1,000 ML IV PRN (07:15)
[2020-02-26] MEDS ORDERED: LIDOcaine 1% (10mg/ml) 2ml vial ONE (07:29)
[2020-02-26] MEDS ORDERED: ondansetron/PF 4mg/2ml inj ONE (08:16)
== END 2020-02-26 09:49 | disposition home or self-care (01) ==
LOC: SSTAY O 07:01
PROVIDERS: ATTEND Radiology Diagnostic Radiology
DX: K70.31 Alcoholic cirrhosis of liver with ascites (principal); K21.9 Gastro-esophageal reflux disease without esophagitis; E87.6 Hypokalemia; F10.10 Alcohol abuse, uncomplicated; Z79.899 Other long term (current) drug therapy
CPT/HCPCS: 49083; J2001; J2405; P9047

== ENCOUNTER 2020-03-03 08:23 | Day surgery (SDC) | payer BC ==
[~2020-03-03] VITALS: Ht 165.1 cm; Wt 72.5 kg
[2020-03-03 08:15] VITALS: BP 106/76
[2020-03-03] MEDS ORDERED: normal saline 1000ml 1,000 ML IV PRN (08:40)
[2020-03-03] MEDS ORDERED: albumin 25% 100mL bottle x 1 IV PRN (08:40)
[2020-03-03 10:10] VITALS: BP 108/69
[2020-03-03 10:25] VITALS: BP 110/68
[2020-03-03 10:40] VITALS: BP 102/66
[2020-03-03 10:49] VITALS: BP 99/68
== END 2020-03-03 10:51 | disposition home or self-care (01) ==
LOC: SSTAY O 08:23
PROVIDERS: ATTEND Radiology Vascular & Interventional Radiology
DX: K70.31 Alcoholic cirrhosis of liver with ascites (principal); E87.6 Hypokalemia; K21.9 Gastro-esophageal reflux disease without esophagitis; F10.10 Alcohol abuse, uncomplicated; Z79.899 Other long term (current) drug therapy
CPT/HCPCS: 49083

== ENCOUNTER 2020-03-15 07:24 | Day surgery (SDC) | payer BC ==
[~2020-03-15] VITALS: Ht 165.1 cm; Wt 71.6 kg
[2020-03-15] MEDS ORDERED: albumin 25% 100mL bottle x 1 IV PRN (07:45)
[2020-03-15] MEDS ORDERED: normal saline 1000ml 1,000 ML IV PRN (07:50)
[2020-03-15 08:29] VITALS: BP 102/73
[2020-03-15 09:42] VITALS: BP 102/68
[2020-03-15 09:57] VITALS: BP 100/70
[2020-03-15 10:12] VITALS: BP 100/64
[2020-03-15 10:27] VITALS: BP 102/58
[2020-03-15 10:42] VITALS: BP 106/70
== END 2020-03-15 10:59 | disposition home or self-care (01) ==
LOC: SSTAY O 07:24
PROVIDERS: ATTEND Radiology Vascular & Interventional Radiology
DX: K70.31 Alcoholic cirrhosis of liver with ascites (principal); F10.10 Alcohol abuse, uncomplicated; E87.6 Hypokalemia; K21.9 Gastro-esophageal reflux disease without esophagitis; Z79.899 Other long term (current) drug therapy
CPT/HCPCS: 49083; P9047

== ENCOUNTER 2020-03-29 08:32 | Day surgery (SDC) | payer BC ==
[2020-03-29] VITALS (8 sets, daily range): BP systolic 100–124; BP diastolic 62–76
[~2020-03-29] VITALS: Ht 165.1 cm; Wt 72.4 kg
[2020-03-29] MEDS ORDERED: normal saline 1000ml 1,000 ML IV PRN (08:55)
[2020-03-29] MEDS ORDERED: albumin 25% 100mL bottle x 1 IV PRN (08:55)
== END 2020-03-29 10:30 | disposition home or self-care (01) ==
LOC: SSTAY O 08:32
PROVIDERS: ATTEND Radiology Diagnostic Radiology
DX: K70.31 Alcoholic cirrhosis of liver with ascites (principal); E87.6 Hypokalemia; K21.9 Gastro-esophageal reflux disease without esophagitis; F10.10 Alcohol abuse, uncomplicated; Z79.899 Other long term (current) drug therapy
CPT/HCPCS: 49083; P9047

== ENCOUNTER 2020-04-06 03:14 | Inpatient (IN) | payer BC ==
[2020-04-06] VITALS (9 sets, daily range): BP systolic 97–120; BP diastolic 57–77
[~2020-04-06] VITALS: Ht 165.1 cm; Wt 71.4 kg
[2020-04-06] MEDS ORDERED: ipratropium/albuterol 3ml nebule NEB ONE (03:55)
[2020-04-06] MEDS ORDERED: ipratropium/albuterol 3ml nebule ONE (04:12)
[2020-04-06 04:18] LABS: BASOPHILS % (AUTO) 1.1 % (0-1); EOSINOPHILS % (AUTO) 1.5 % (0-6); HEMATOCRIT 31.2 % (35.0-45.0); LYMPHOCYTES % (AUTO) 38.8 % (21-51); MEAN CORPUSCULAR HEMOGLOBIN 25.5 PG (27.0-31.0); MEAN CORPUSCULAR HGB CONC 31.9 g/dL (33.0-36.5); MEAN CORPUSCULAR VOLUME 79.8 FL (78-98); MEAN PLATELET VOLUME 9.2 FL (7.4-10.4); MONOCYTES # (AUTO) 0.6 X10'3 (0-0.9); MONOCYTES % (AUTO) 21.3 % (2-12); NEUTROPHILS % (AUTO) 37.3 % (42-75); PLATELET COUNT 64 X10'3 (140-440); RED BLOOD COUNT 3.91 X10'6 (4.20-5.60); RED CELL DISTRIBUTION WIDTH 19.5 % (11.5-14.5); WHITE BLOOD COUNT 2.7 X10'3 (4.5-11.0)
[2020-04-06 04:26] LABS: ALANINE AMINOTRANSFERASE 23 U/L (12-78); ALBUMIN 2.3 G/DL (3.4-5.0); ALBUMIN/GLOBULIN RATIO 0.6 (1.1-1.5); ALKALINE PHOSPHATASE 223 IU/L (46-116); ANION GAP 9 (8-16); ASPARTATE AMINO TRANSFERASE 66 U/L (10-37); BILIRUBIN,TOTAL 1.5 MG/DL (0.1-1.0); BLOOD UREA NITROGEN 11 MG/DL (7-18); BUN/CREATININE RATIO 10.9 (6.6-38.0); CALCIUM 7.7 MG/DL (8.5-10.1); CHLORIDE 102 MMOL/L (99-107); CREATININE 1.01 MG/DL (0.40-0.90); GLUCOSE 79 MG/DL (70-104); POTASSIUM 3.3 MMOL/L (3.5-5.1); SODIUM 139 MMOL/L (135-145); TOTAL CARBON DIOXIDE 27.8 MMOL/L (24-32); TOTAL PROTEIN 6.3 G/DL (6.4-8.2); eGFR 57 ML/MIN
[2020-04-06] MEDS ORDERED: ALBU90AE2 (04:31)
[2020-04-06 04:32] LABS: ANISOCYTOSIS 2+; PLATELET ESTIMATE DECREASED; TOTAL CELLS COUNTED 100
[2020-04-06 04:33] LABS: ETHANOL 0.286 GM/DL (0.0-0.010); HYPOCHROMASIA 1+; LIPASE 602 U/L (73-393); TROPONIN I < 0.04 NG/ML (0.0-0.05)
[2020-04-06 04:51] LABS: LACTIC SEPSIS 2.1 MMOL/L (0.4-2.0)
--- NOTE | 2020-04-06 05:11 | NUR ---
Patient c/o increased SOB. Her O2 sat dropping to 88 to 89 %. 2L O2 NC administered. Pt O2 sat maintainging 96%
[2020-04-06] MEDS ORDERED: mag hydrox/Alum hydrox/simeth 30ml oral suspension PO PRN (05:35)
[2020-04-06] MEDS ORDERED: ondansetron/PF 4mg/2ml inj IV PRN (05:35)
[2020-04-06] MEDS ORDERED: magnesium hydroxide 30ml (MOM) UD suspension PO PRN (05:35)
[2020-04-06] MEDS ORDERED: acetaminophen 325mg tablet PO PRN (05:35)
--- NOTE | 2020-04-06 06:30 | NUR ---
no reported chest discomfort.
--- NOTE | 2020-04-06 06:44 | NUR ---
patient on 2L as patent tends to desat per noc notes.patient sating 96%.call light within reach. bg rechecked 92mg/dl.
--- NOTE | 2020-04-06 07:35 | NUR ---
Patient was anxious and slightly shaky, Ativan IV given for anxiety. Patient currently on alcohol withdrawal protocol as she has elevated alcohol in the blood. Bed rails padded
--- NOTE | 2020-04-06 07:40 | NUR ---
identification clerk contacted hospitalist regarding low potassium,awaiting response.Will inform christian science reader.
[2020-04-06] MEDS: LORazepam 2 mg/ml vial IV PRN (07:53)
[2020-04-06] MEDS ORDERED: furosemide 20MG tablet PO SCH (08:00)
[2020-04-06] MEDS ORDERED: albuterol 2.5 MG/3 ML nebule NEB SCH (08:00)
[2020-04-06] MEDS: thiamine 100mg tablet PO SCH ×2 (08:00→10:43)
--- NOTE | 2020-04-06 10:00 | NUR ---
Dr. Huff made rounds, I let him know that patient K today is 3.3, ammonia 57, and that the D-dimer was elevated - 3.50.
[2020-04-06] MEDS ORDERED: potassium chloride 10mEq ER tablet PO ONE (10:05)
--- NOTE | 2020-04-06 10:17 | NUR ---
Paged RT regarding RT eval and need for breathing treatment per Dr. Huff order
[2020-04-06] MEDS ORDERED: albuterol 2.5 MG/3 ML nebule NEB PRN (10:25)
[2020-04-06] MEDS: lactulose 20gm/30ml cup PO SCH ×2 (10:42→20:00)
[2020-04-06] MEDS: pantoprazole 40mg Tablet.DR PO SCH (10:42)
[2020-04-06] MEDS: spironolactone 50 MG tablet PO SCH ×2 (10:43→20:00)
[2020-04-06] MEDS: folic acid 1mg tablet PO SCH (10:43)
--- NOTE | 2020-04-06 12:05 | NUR ---
Angio crew at bedside doing thoracentesis and probably paracentesis Addendum: 04/06/20 at 1214 by Tunde Duran RN Per report I got from the Angio nurse, patient had thoracentesis ( 1100ml out) and paracentesis (2650 ml out). Patient tolerated the procedure.
[2020-04-06] MEDS ORDERED: albumin (human) 25% 100 ML IV solution IV ONE (12:10)
--- NOTE | 2020-04-06 14:05 | NUR ---
PAGER ID: [phone] MESSAGE: Surgical Flr Tunde MUHAMMAD ext [phone]. RE: Ayah Walters. Patient blood sugar was 63 mg/dl, I just gave orange juice. She is not on hypoglycemia protocol, can we get order for hypoglycemia protocol?
[2020-04-06] MEDS ORDERED: glucagon, human recombinant 1mg kit SUBCUT PRN (14:10)
[2020-04-06] MEDS ORDERED: dextrose 50%-water 50ml dispensing syringe IV PRN ×2 (14:10)
[2020-04-06] MEDS ORDERED: dextrose ORAL solution 15 GM/59 ML bottle PO PRN (14:10)
--- NOTE | 2020-04-06 14:20 | NUR ---
Blood sugar rechecked 15 minutes after 2 cups of orange juice was given - 92mg/dl. Also, hypoglycemia protocol order received from Dr. Huff
--- NOTE | 2020-04-06 18:30 | NUR ---
Received report from primary care nurse Tunde MUHAMMAD. Assumed patient care with Merry MUHAMMAD. Patient is awake and alert on 2L NC in no apparent distress. Call light and items of frequent use within reach. Will continue to monitor for changes.
--- NOTE | 2020-04-06 18:39 | NUR ---
Problems reprioritized. Patient report given, questions answered & plan of care reviewed with Bree MUHAMMAD.
--- NOTE | 2020-04-06 18:43 | NUR ---
Patient in room GLEN 358. I have received report from Tunde MUHAMMAD and had the opportunity to ask questions and assume patient care.
[2020-04-06] MEDS: furosemide 20MG tablet PO SCH (20:00)
[2020-04-06] MEDS: dextrose ORAL solution 15 GM/59 ML bottle PO PRN (20:43)
[2020-04-07 00:22] VITALS: BP 105/67
[2020-04-07] MEDS: LORazepam 2 mg/ml vial IV PRN (02:21)
[2020-04-07 05:20] LABS: ALANINE AMINOTRANSFERASE 15 U/L (12-78); ALBUMIN 2.2 G/DL (3.4-5.0); ALBUMIN/GLOBULIN RATIO 0.7 (1.1-1.5); ALKALINE PHOSPHATASE 154 IU/L (46-116); ANION GAP 5 (8-16); ASPARTATE AMINO TRANSFERASE 48 U/L (10-37); BILIRUBIN,TOTAL 2.1 MG/DL (0.1-1.0); BLOOD UREA NITROGEN 9 MG/DL (7-18); BUN/CREATININE RATIO 11.8 (6.6-38.0); CALCIUM 7.4 MG/DL (8.5-10.1); CHLORIDE 103 MMOL/L (99-107); CREATININE 0.76 MG/DL (0.40-0.90); GLUCOSE 92 MG/DL (70-104); POTASSIUM 3.6 MMOL/L (3.5-5.1); SODIUM 134 MMOL/L (135-145); TOTAL CARBON DIOXIDE 25.7 MMOL/L (24-32); TOTAL PROTEIN 5.2 G/DL (6.4-8.2); eGFR 79 ML/MIN
[2020-04-07 05:22] LABS: EOSINOPHILS % (AUTO) 1.1 % (0-6); HEMATOCRIT 26.3 % (35.0-45.0); HEMOGLOBIN 8.4 g/dl (12.0-16.0); LYMPHOCYTES # (AUTO) 0.5 X10'3 (1.1-4.8); LYMPHOCYTES % (AUTO) 31.2 % (21-51); MEAN CORPUSCULAR HEMOGLOBIN 25.6 PG (27.0-31.0); MEAN CORPUSCULAR HGB CONC 31.9 g/dL (33.0-36.5); MEAN CORPUSCULAR VOLUME 80.4 FL (78-98); MEAN PLATELET VOLUME 8.9 FL (7.4-10.4); MONOCYTES # (AUTO) 0.4 X10'3 (0-0.9); MONOCYTES % (AUTO) 24.2 % (2-12); NEUTROPHILS # (AUTO) 0.7 X10'3 (1.8-7.7); NEUTROPHILS % (AUTO) 42.5 % (42-75); RED BLOOD COUNT 3.27 X10'6 (4.20-5.60); RED CELL DISTRIBUTION WIDTH 19.1 % (11.5-14.5); WHITE BLOOD COUNT 1.6 X10'3 (4.5-11.0)
[2020-04-07 05:41] LABS: PLATELET COUNT 46 X10'3 (140-440)
--- NOTE | 2020-04-07 06:35 | NUR ---
Reported off to Ina RN with Merry RN. Patient is resting with relaxed and unlabored respirations with 2LNC. In no apparent distress. Call light and items of frequent use within reach.
--- NOTE | 2020-04-07 06:35 | NUR ---
Problems reprioritized. Patient report given, questions answered & plan of care reviewed with Ina MUHAMMAD.
[2020-04-07 06:39] LABS: TOTAL CELLS COUNTED 100
[2020-04-07 06:40] LABS: LYMPHOCYTES % (MANUAL) 32 % (21-51); MONOCYTES % (MANUAL) 21 % (2-12); NEUTROPHILS % (MANUAL) 45 % (42-75)
[2020-04-07 06:41] LABS: ANISOCYTOSIS 2+; PLATELET ESTIMATE DECREASED
--- NOTE | 2020-04-07 06:42 | NUR ---
Patient in room GLEN 358. I have received report from Bree/Merry MUHAMMAD and had the opportunity to ask questions and assume patient care.
[2020-04-07 07:00] VITALS: BP 109/70
[2020-04-07] MEDS: dextrose ORAL solution 15 GM/59 ML bottle PO PRN (07:21)
[2020-04-07] MEDS: thiamine 100mg tablet PO SCH ×2 (08:00→08:29)
[2020-04-07] MEDS: furosemide 20MG tablet PO SCH (08:00)
[2020-04-07] MEDS: spironolactone 50 MG tablet PO SCH (08:00)
[2020-04-07] MEDS: folic acid 1mg tablet PO SCH (08:29)
[2020-04-07] MEDS: lactulose 20gm/30ml cup PO SCH (08:29)
[2020-04-07] MEDS: pantoprazole 40mg Tablet.DR PO SCH (08:29)
[2020-04-07 09:23] VITALS: BP 108/67
[2020-04-07 11:00] VITALS: BP 101/68
[2020-04-07] MEDS ORDERED: LACT10SO32 PO (13:26)
[2020-04-07] MEDS ORDERED: FURO20TA4 PO (13:26)
--- NOTE | 2020-04-07 15:35 | NUR ---
Pt DC to home, Pt is A & O, in no apparent distress. Pt verbalizes understanding on all DC orders. Pt states understanding of all resources to help her quit drinking and get therapy. Pt seems interested on getting help. Pt packed and carried all of her belongings and will drive herself home. Pt has not been given pain meds in over 12 hrs. Pt's IV cath was removed and is intact.Pt was wheeled to the front where she drove herself home.
[2020-04-08] MEDS ORDERED: LORazepam 1 MG tablet PO PRN (05:40)
[2020-04-08] MEDS ORDERED: LORazepam 2 mg/ml vial IV PRN (05:40)
[2020-04-10] MEDS ORDERED: LORazepam 1 MG tablet PO PRN (05:40)
== END 2020-04-07 15:35 | disposition home or self-care (01) | DRG 442 ==
LOC: ER 03:15 → ED HOLD 05:33 → SUR 3N 07:40
PROVIDERS: ADMIT Internal Medicine; ATTEND Internal Medicine
PROC: 0W993ZZ Drainage of Right Pleural Cavity, Percutaneous Approach (ICD-10-PCS; principal; 2020-04-06)
PROC: 0W9G3ZZ Drainage of Peritoneal Cavity, Percutaneous Approach (ICD-10-PCS; 2020-04-06)
DX: K72.90 Hepatic failure, unspecified without coma (principal); R18.8 Other ascites; D61.818 Other pancytopenia; J90 Pleural effusion, not elsewhere classified; D50.9 Iron deficiency anemia, unspecified; D69.59 Other secondary thrombocytopenia; E16.2 Hypoglycemia, unspecified; E88.09 Other disorders of plasma-protein metabolism, not elsewhere classified; F10.229 Alcohol dependence with intoxication, unspecified; Z87.891 Personal history of nicotine dependence; Z79.899 Other long term (current) drug therapy
CPT/HCPCS: 32555; 36415; 49083; 71045; 80053; 80320; 82140; 82948; 83605; 83690; 83880; 84484; 85007; 85025; 85379; 85610; 87040; 87081; 93005; 94640; 94760; 99285; G0378; J2060; P9047

== ENCOUNTER 2020-04-22 07:48 | Day surgery (SDC) | payer BC ==
[~2020-04-22] VITALS: Ht 165.1 cm; Wt 74.3 kg
[2020-04-22] VITALS (7 sets, daily range): BP systolic 97–109; BP diastolic 60–73
[~2020-04-22 07:48] MED LIST changes: +ALBU90AE2; -FURO-150 PO; +FURO20TA4 PO; +LACT10SO32 PO
[2020-04-22] MEDS ORDERED: normal saline 1000ml 1,000 ML IV PRN (08:10)
[2020-04-22] MEDS ORDERED: albumin 25% 100mL bottle x 1 IV PRN (08:10)
[2020-04-22] MEDS ORDERED: ALBU18HF2 INH (08:18)
[2020-04-22] MEDS ORDERED: POTA-82 PO (08:18)
[2020-04-22] MEDS ORDERED: SPIR50TA PO (08:18)
[2020-04-22] MEDS ORDERED: FURO-149 PO (08:25)
== END 2020-04-22 11:25 | disposition home or self-care (01) ==
LOC: SSTAY O 07:48
PROVIDERS: ATTEND Radiology Diagnostic Radiology
DX: J90 Pleural effusion, not elsewhere classified (principal); K70.31 Alcoholic cirrhosis of liver with ascites; E87.6 Hypokalemia; K21.9 Gastro-esophageal reflux disease without esophagitis; F10.10 Alcohol abuse, uncomplicated; Z79.899 Other long term (current) drug therapy
CPT/HCPCS: 32555; 49083; 71045

== ENCOUNTER 2020-05-03 06:50 | Day surgery (SDC) | payer BC ==
[~2020-05-03] VITALS: Ht 165.1 cm; Wt 73.5 kg
[2020-05-03] VITALS (8 sets, daily range): BP systolic 101–112; BP diastolic 67–79
[~2020-05-03 06:50] MED LIST changes: +ALBU18HF2 INH; -ALBU90AE2; -FOLI0.8C PO; +FURO-149 PO; -FURO20TA4 PO; -LACT10SO32 PO; +POTA-82 PO; +SPIR50TA PO; -VIT B1
[2020-05-03] MEDS ORDERED: FERR-28 PO (07:16)
[2020-05-03] MEDS ORDERED: albumin 25% 100mL bottle x 1 IV PRN (08:35)
== END 2020-05-03 09:35 | disposition home or self-care (01) ==
LOC: SSTAY O 06:50
PROVIDERS: ATTEND Radiology Vascular & Interventional Radiology
DX: R18.8 Other ascites (principal); K70.9 Alcoholic liver disease, unspecified
CPT/HCPCS: 49083; P9047

== ENCOUNTER 2020-05-16 06:17 | Day surgery (SDC) | payer BC ==
[2020-05-16] VITALS (7 sets, daily range): BP systolic 96–112; BP diastolic 60–73
[~2020-05-16] VITALS: Ht 165.1 cm; Wt 72.8 kg
[~2020-05-16 06:17] MED LIST changes: +FERR-28 PO; -SPIR50TA PO
[2020-05-16] MEDS ORDERED: albumin 25% 100mL bottle x 1 IV PRN (06:35)
[2020-05-16] MEDS ORDERED: ondansetron/PF 4mg/2ml inj IV ONE (07:00)
--- NOTE | 2020-05-16 08:40 | NUR ---
Pt draining, states she feels "light headed"and "still feel nauseous VS charted. RADHA Albarado was informed of patient complaint. New med order given. Meds to be administered as ordered.
[2020-05-16] MEDS ORDERED: ondansetron/PF 4mg/2ml inj IM ONE (08:45)
== END 2020-05-16 09:40 | disposition home or self-care (01) ==
LOC: SSTAY O 06:17
PROVIDERS: ATTEND Radiology Diagnostic Radiology
DX: K70.31 Alcoholic cirrhosis of liver with ascites (principal); E87.6 Hypokalemia; K21.9 Gastro-esophageal reflux disease without esophagitis; F10.10 Alcohol abuse, uncomplicated; Z79.899 Other long term (current) drug therapy
CPT/HCPCS: 49083; J2405; P9047

== ENCOUNTER 2020-05-27 07:18 | Day surgery (SDC) | payer BC ==
[2020-05-27] VITALS (8 sets, daily range): BP systolic 96–112; BP diastolic 62–82
[~2020-05-27] VITALS: Ht 165.1 cm; Wt 71.9 kg
[2020-05-27] MEDS ORDERED: albumin 25% 100mL bottle x 1 IV PRN (07:40)
[2020-05-27] MEDS ORDERED: SPIR50TA PO (07:44)
== END 2020-05-27 10:13 | disposition home or self-care (01) ==
LOC: SSTAY O 07:18
PROVIDERS: ATTEND Radiology Diagnostic Radiology
DX: K70.31 Alcoholic cirrhosis of liver with ascites (principal); E87.6 Hypokalemia; K21.9 Gastro-esophageal reflux disease without esophagitis; F10.10 Alcohol abuse, uncomplicated; Z79.899 Other long term (current) drug therapy
CPT/HCPCS: 49083; P9047

== ENCOUNTER 2020-06-07 06:27 | Day surgery (SDC) | payer BC ==
[2020-06-07] VITALS (11 sets, daily range): BP systolic 99–120; BP diastolic 64–77
[~2020-06-07] VITALS: Ht 165.1 cm; Wt 79.6 kg
[~2020-06-07 06:27] MED LIST changes: -FURO-149 PO; +SPIR50TA PO; -SPIR50TA5 PO
[2020-06-07] MEDS ORDERED: ondansetron/PF 4mg/2ml inj IV ONE (08:25)
[2020-06-07] MEDS: albumin 25% 100mL bottle x 1 IV PRN ×2 (09:11→10:14)
== END 2020-06-07 11:00 | disposition home or self-care (01) ==
LOC: SSTAY O 06:27
PROVIDERS: ATTEND Radiology Vascular & Interventional Radiology
DX: K70.31 Alcoholic cirrhosis of liver with ascites (principal); E87.6 Hypokalemia; F10.10 Alcohol abuse, uncomplicated; K21.9 Gastro-esophageal reflux disease without esophagitis; Z98.890 Other specified postprocedural states; Z79.899 Other long term (current) drug therapy
CPT/HCPCS: 49083; J2405; P9047

== ENCOUNTER 2020-06-14 06:34 | Day surgery (SDC) | payer BC ==
[2020-06-14] VITALS (9 sets, daily range): BP systolic 93–111; BP diastolic 54–73
[~2020-06-14] VITALS: Ht 165.1 cm; Wt 83.1 kg
[2020-06-14] MEDS ORDERED: ondansetron/PF 4mg/2ml inj IV ONE (08:20)
[2020-06-14] MEDS: albumin 25% 100mL bottle x 1 IV PRN ×2 (08:38→09:31)
== END 2020-06-14 10:30 | disposition home or self-care (01) ==
LOC: SSTAY O 06:34
PROVIDERS: ATTEND Radiology Diagnostic Radiology
DX: K70.31 Alcoholic cirrhosis of liver with ascites (principal); K21.9 Gastro-esophageal reflux disease without esophagitis; E87.6 Hypokalemia; F10.20 Alcohol dependence, uncomplicated; Z79.899 Other long term (current) drug therapy
CPT/HCPCS: 49083; J2405; P9047

== ENCOUNTER 2020-06-23 06:29 | Day surgery (SDC) | payer BC ==
[2020-06-23] VITALS (9 sets, daily range): BP systolic 94–123; BP diastolic 49–80
[~2020-06-23] VITALS: Ht 165.1 cm; Wt 82.7 kg
[2020-06-23] MEDS ORDERED: HYDR25CA PO (07:06)
[2020-06-23] MEDS ORDERED: FURO-150 PO (07:06)
[2020-06-23] MEDS ORDERED: ondansetron/PF 4mg/2ml inj IV ONE (07:45)
[2020-06-23] MEDS: albumin 25% 100mL bottle x 1 IV PRN ×2 (08:26→09:05)
== END 2020-06-23 10:15 | disposition home or self-care (01) ==
LOC: SSTAY O 06:29
PROVIDERS: ATTEND Radiology Diagnostic Radiology
DX: K70.31 Alcoholic cirrhosis of liver with ascites (principal); E87.6 Hypokalemia; K21.9 Gastro-esophageal reflux disease without esophagitis; F10.10 Alcohol abuse, uncomplicated; Z79.899 Other long term (current) drug therapy
CPT/HCPCS: 49083; J2405; P9047

== ENCOUNTER 2020-07-01 06:43 | Day surgery (SDC) | payer BC ==
[2020-07-01] VITALS (9 sets, daily range): BP systolic 97–103; BP diastolic 58–70
[~2020-07-01] VITALS: Ht 165.1 cm; Wt 76.7 kg
[~2020-07-01 06:43] MED LIST changes: +FURO-150 PO; +HYDR25CA PO
[2020-07-01] MEDS ORDERED: albumin 25% 100mL bottle x 1 IV PRN (07:05)
[2020-07-01] MEDS ORDERED: ondansetron/PF 4mg/2ml inj IV ONE (08:20)
== END 2020-07-01 09:45 | disposition home or self-care (01) ==
LOC: SSTAY O 06:43
PROVIDERS: ATTEND Radiology Diagnostic Radiology
DX: K70.31 Alcoholic cirrhosis of liver with ascites (principal); F10.10 Alcohol abuse, uncomplicated; E87.6 Hypokalemia; K21.9 Gastro-esophageal reflux disease without esophagitis; Z79.899 Other long term (current) drug therapy
CPT/HCPCS: 49083; J2405; P9047

== ENCOUNTER 2020-07-10 20:43 | Emergency (ER) | payer BC ==
[~2020-07-10] VITALS: Ht 165.1 cm; Wt 72.0 kg
[~2020-07-10 20:43] MED LIST changes: -HYDR25CA PO
[2020-07-10 22:55] LABS: BASOPHILS % (AUTO) 0.6 % (0-1); EOSINOPHILS % (AUTO) 0.2 % (0-6); HEMATOCRIT 36.2 % (35.0-45.0); HEMOGLOBIN 12.1 g/dl (12.0-16.0); LYMPHOCYTES # (AUTO) 0.8 X10'3 (1.1-4.8); LYMPHOCYTES % (AUTO) 20.5 % (21-51); MEAN CORPUSCULAR HEMOGLOBIN 31.3 PG (27.0-31.0); MEAN CORPUSCULAR HGB CONC 33.4 g/dL (33.0-36.5); MEAN CORPUSCULAR VOLUME 93.9 FL (78-98); MEAN PLATELET VOLUME 8.9 FL (7.4-10.4); MONOCYTES # (AUTO) 0.5 X10'3 (0-0.9); MONOCYTES % (AUTO) 14.1 % (2-12); NEUTROPHILS # (AUTO) 2.5 X10'3 (1.8-7.7); NEUTROPHILS % (AUTO) 64.6 % (42-75); PLATELET COUNT 53 X10'3 (140-440); RED BLOOD COUNT 3.85 X10'6 (4.20-5.60); RED CELL DISTRIBUTION WIDTH 14.7 % (11.5-14.5); WHITE BLOOD COUNT 3.9 X10'3 (4.5-11.0)
[2020-07-10 23:12] LABS: ALANINE AMINOTRANSFERASE 26 U/L (12-78); ALBUMIN 2.6 G/DL (3.4-5.0); ALBUMIN/GLOBULIN RATIO 0.7 (1.1-1.5); ALKALINE PHOSPHATASE 239 IU/L (46-116); ANION GAP 10 (8-16); ASPARTATE AMINO TRANSFERASE 72 U/L (10-37); BILIRUBIN,TOTAL 1.5 MG/DL (0.1-1.0); BLOOD UREA NITROGEN 14 MG/DL (7-18); BUN/CREATININE RATIO 13.5 (6.6-38.0); CALCIUM 8.1 MG/DL (8.5-10.1); CHLORIDE 99 MMOL/L (99-107); CREATININE 1.04 MG/DL (0.40-0.90); GLUCOSE 126 MG/DL (70-104); LIPASE 672 U/L (73-393); POTASSIUM 3.3 MMOL/L (3.5-5.1); SODIUM 133 MMOL/L (135-145); TOTAL PROTEIN 6.6 G/DL (6.4-8.2); eGFR 55 ML/MIN
[2020-07-10 23:19] LABS: ETHANOL 0.406 GM/DL (0.0-0.010)
[2020-07-11 00:09] VITALS: BP 101/59
== END 2020-07-11 00:10 | disposition home or self-care (01) ==
LOC: ER 20:44
DX: K72.10 Chronic hepatic failure without coma (principal); K21.9 Gastro-esophageal reflux disease without esophagitis; F10.920 Alcohol use, unspecified with intoxication, uncomplicated; Z79.899 Other long term (current) drug therapy; Y90.9 Presence of alcohol in blood, level not specified
CPT/HCPCS: 74176; 80053; 80320; 83690; 85025; 99284

== ENCOUNTER 2020-07-15 07:01 | Day surgery (SDC) | payer BC ==
[~2020-07-15] VITALS: Ht 165.1 cm; Wt 73.0 kg
[2020-07-15] MEDS ORDERED: albumin 25% 100mL bottle x 1 IV PRN (07:25)
[2020-07-15 07:50] VITALS: BP 95/64
[2020-07-15] MEDS ORDERED: normal saline 1000ml 1,000 ML IV ONE (08:15)
[2020-07-15 08:25] VITALS: BP 97/60
[2020-07-15] MEDS ORDERED: ondansetron/PF 4mg/2ml inj IV ONE (08:40)
[2020-07-15] MEDS ORDERED: ondansetron/PF 4mg/2ml inj ONE (08:40)
[2020-07-15 08:45] VITALS: BP 110/66
[2020-07-15 09:00] VITALS: BP 94/57
[2020-07-15 09:15] VITALS: BP 102/59
[2020-07-15 10:00] VITALS: BP 98/60
== END 2020-07-15 10:25 | disposition home or self-care (01) ==
LOC: SSTAY O 07:01
PROVIDERS: ATTEND Radiology Diagnostic Radiology
DX: K70.31 Alcoholic cirrhosis of liver with ascites (principal); E87.6 Hypokalemia; K21.9 Gastro-esophageal reflux disease without esophagitis; F10.10 Alcohol abuse, uncomplicated; Z79.899 Other long term (current) drug therapy
CPT/HCPCS: 49083; J2405; J7030; P9047; 32555

== ENCOUNTER 2020-07-25 06:15 | Day surgery (SDC) | payer BC ==
[~2020-07-25] VITALS: Ht 175.3 cm; Wt 72.3 kg
[2020-07-25] VITALS (9 sets, daily range): BP systolic 87–138; BP diastolic 49–71
[2020-07-25] MEDS ORDERED: albumin 25% 100mL bottle x 1 IV PRN (06:30)
--- NOTE | 2020-07-25 09:10 | NUR ---
pt requesting pain medication, waiting for response from PA.
--- NOTE | 2020-07-25 09:27 | NUR ---
PA at bedside.
== END 2020-07-25 10:30 | disposition home or self-care (01) ==
LOC: SSTAY O 06:15
PROVIDERS: ATTEND Radiology Vascular & Interventional Radiology
DX: K70.31 Alcoholic cirrhosis of liver with ascites (principal); E87.6 Hypokalemia; K21.9 Gastro-esophageal reflux disease without esophagitis; F10.10 Alcohol abuse, uncomplicated; Z79.899 Other long term (current) drug therapy
CPT/HCPCS: 49083; P9047

== ENCOUNTER 2020-08-11 06:42 | Day surgery (SDC) | payer BC ==
[~2020-08-11] VITALS: Ht 165.1 cm; Wt 77.2 kg
[2020-08-11] MEDS ORDERED: albumin 25% 100mL bottle x 1 IV PRN (07:05)
[2020-08-11] MEDS ORDERED: ondansetron/PF 4mg/2ml inj IM ONE (07:10)
[2020-08-11 07:22] VITALS: BP 103/64
[2020-08-11] MEDS ORDERED: ondansetron/PF 4mg/2ml inj IV ONE (07:40)
[2020-08-11 08:42] VITALS: BP 97/70
[2020-08-11 08:57] VITALS: BP 102/76
[2020-08-11 09:12] VITALS: BP 99/67
[2020-08-11 09:35] VITALS: BP 101/70
== END 2020-08-11 09:45 | disposition home or self-care (01) ==
LOC: SSTAY O 06:42
PROVIDERS: ATTEND Radiology Diagnostic Radiology
DX: K70.31 Alcoholic cirrhosis of liver with ascites (principal); E87.6 Hypokalemia; K21.9 Gastro-esophageal reflux disease without esophagitis; F10.20 Alcohol dependence, uncomplicated; Z79.899 Other long term (current) drug therapy
CPT/HCPCS: 49083; J2405; P9047

== ENCOUNTER 2020-08-19 06:30 | Day surgery (SDC) | payer BC ==
[~2020-08-19] VITALS: Ht 165.1 cm; Wt 75.4 kg
[2020-08-19] VITALS (11 sets, daily range): BP systolic 84–92; BP diastolic 53–63
[2020-08-19] MEDS ORDERED: ondansetron/PF 4mg/2ml inj IM ONE (06:50)
[2020-08-19] MEDS ORDERED: normal saline 1000ml 1,000 ML IV PRN (06:55)
[2020-08-19] MEDS ORDERED: albumin 25% 100mL bottle x 1 IV PRN (06:55)
[2020-08-19] MEDS ORDERED: ondansetron/PF 4mg/2ml inj IV ONE (07:20)
--- NOTE | 2020-08-19 08:15 | NUR ---
RADHA DEL CASTILLO, HERE TO START PARACENTESIS. US OF ABD, SHOWS SUFFICIENT FLUID FOR PARACENTESIS, BP LOW 80'S/50'S-60'S, WILLIAM BRADY STATES ALBUMIN GIVE AND MONITOR BP. Addendum: 08/19/20 at 1014 by Marisa Lee RN Amended: Links added.
--- NOTE | 2020-08-19 09:30 | NUR ---
BP STILL REMAINS LOW, AFTER ALBUMIN GIVEN. RADHA DEL CASTILLO, TO DISCUSS WITH PT GOING TO ER. FROM SHORT STAY. AND THAT HE DOES NOT RECOMMEND PARACENTESIS WITH BP, THIS LOW. Addendum: 08/19/20 at 1020 by Marisa Lee RN Amended: Links added.
--- NOTE | 2020-08-19 10:15 | NUR ---
PT DECISION TO GO TO ER AFTER DISCUSSING WITH RADHA DEL CASTILLO, PT TO ER THROUGH HOSPITAL, VERBAL REPORT TO RN, ALL PERSONAL BELONGINGS WITH PT, TX BY W/C, LAST BP .
[2020-08-19] MEDS ORDERED: FURO20TA4 PO (12:42)
[2020-08-19] MEDS ORDERED: SPIR100T5 PO (12:42)
== END 2020-08-19 10:15 | disposition home or self-care (01) ==
LOC: SSTAY O 06:30
PROVIDERS: ATTEND Radiology Vascular & Interventional Radiology
DX: K70.31 Alcoholic cirrhosis of liver with ascites (principal); F10.10 Alcohol abuse, uncomplicated; E87.6 Hypokalemia; K21.9 Gastro-esophageal reflux disease without esophagitis; Z79.899 Other long term (current) drug therapy
CPT/HCPCS: 76705; 82948; J2405; P9047

== ENCOUNTER 2020-08-19 10:37 | Inpatient (IN) | payer BC ==
[~2020-08-19] VITALS: Ht 165.1 cm; Wt 75.9 kg
[2020-08-19 11:35] LABS: BASOPHILS % (AUTO) 0.6 % (0-1); EOSINOPHILS % (AUTO) 0.2 % (0-6); HEMATOCRIT 30.2 % (35.0-45.0); HEMOGLOBIN 10.2 g/dl (12.0-16.0); LYMPHOCYTES # (AUTO) 0.8 X10'3 (1.1-4.8); LYMPHOCYTES % (AUTO) 22.8 % (21-51); MEAN CORPUSCULAR HEMOGLOBIN 32.6 PG (27.0-31.0); MEAN CORPUSCULAR VOLUME 95.9 FL (78-98); MEAN PLATELET VOLUME 8.8 FL (7.4-10.4); MONOCYTES # (AUTO) 0.4 X10'3 (0-0.9); MONOCYTES % (AUTO) 11.5 % (2-12); NEUTROPHILS # (AUTO) 2.4 X10'3 (1.8-7.7); NEUTROPHILS % (AUTO) 64.9 % (42-75); PLATELET COUNT 64 X10'3 (140-440); RED BLOOD COUNT 3.15 X10'6 (4.20-5.60); RED CELL DISTRIBUTION WIDTH 18.2 % (11.5-14.5); WHITE BLOOD COUNT 3.7 X10'3 (4.5-11.0)
[2020-08-19 11:54] LABS: PLATELET ESTIMATE DECREASED
[2020-08-19 11:55] LABS: ANISOCYTOSIS 2+; ELLIPTOCYTES 1+; TARGET CELLS 1+
[2020-08-19 11:58] LABS: ALANINE AMINOTRANSFERASE 31 U/L (12-78); ALBUMIN 2.6 G/DL (3.4-5.0); ALBUMIN/GLOBULIN RATIO 0.7 (1.1-1.5); ALKALINE PHOSPHATASE 237 IU/L (46-116); ANION GAP 13 (8-16); ASPARTATE AMINO TRANSFERASE 88 U/L (10-37); BILIRUBIN,TOTAL 3.8 MG/DL (0.1-1.0); BLOOD UREA NITROGEN 27 MG/DL (7-18); BUN/CREATININE RATIO 14.5 (6.6-38.0); CALCIUM 7.9 MG/DL (8.5-10.1); CHLORIDE 98 MMOL/L (99-107); CREATININE 1.86 MG/DL (0.40-0.90); GLUCOSE 79 MG/DL (70-104); POTASSIUM 3.9 MMOL/L (3.5-5.1); SODIUM 130 MMOL/L (135-145); TOTAL CARBON DIOXIDE 19.2 MMOL/L (24-32); TOTAL PROTEIN 6.1 G/DL (6.4-8.2); eGFR 28 ML/MIN
[2020-08-19] MEDS ORDERED: normal saline 1000ML IV soln IVB ONE (12:05)
[2020-08-19] MEDS ORDERED: lactulose 20gm/30ml cup PO ONE (12:05)
[2020-08-19 12:29] LABS: ETHANOL 0.327 GM/DL (0.0-0.010)
--- NOTE | 2020-08-19 12:37 | NUR ---
PER PA DONNELLY GIVE 500 ML BOLUS.
[2020-08-19] MEDS ORDERED: FURO20TA4 PO (12:42)
[2020-08-19] MEDS ORDERED: SPIR100T5 PO (12:42)
[2020-08-19] MEDS ORDERED: mag hydrox/Alum hydrox/simeth 30ml oral suspension PO PRN (13:30)
[2020-08-19] MEDS ORDERED: morphine 2 MG/ML inj. syringe IV PRN ×2 (13:30)
[2020-08-19] MEDS ORDERED: magnesium hydroxide 30ml (MOM) UD suspension PO PRN (13:30)
[2020-08-19] MEDS ORDERED: acetaminophen 325mg tablet PO PRN ×2 (13:30)
[2020-08-19] MEDS: albumin (human) 25% 100 ML IV solution IV SCH ×2 (14:08→20:00)
[2020-08-19] MEDS: lactulose 20gm/30ml cup PO SCH ×2 (14:13→21:08)
--- NOTE | 2020-08-19 16:38 | NUR ---
DR VIZCAINO AT BEDSIDE
--- NOTE | 2020-08-19 17:12 | NUR ---
I asked Dr. Huff on the phone if he wants patient to be on alcohol withdrawal protocol, he said no.
--- NOTE | 2020-08-19 18:25 | NUR ---
Problems reprioritized. Patient report given, questions answered & plan of care reviewed with Doimngo MUHAMMAD.
[2020-08-19 19:18] VITALS: BP 113/74
[2020-08-19 22:00] VITALS: BP 117/65
[2020-08-20 02:00] VITALS: BP 100/64
[2020-08-20] MEDS: lactulose 20gm/30ml cup PO SCH ×4 (02:00→20:00)
--- NOTE | 2020-08-20 06:25 | NUR ---
patient report given, questions answered and plan of care reviewed with JB Houston.
--- NOTE | 2020-08-20 06:40 | NUR ---
Patient in room U 3027. I have received report from Eduard agarwal RN and had the opportunity to ask questions and assume patient care.
[2020-08-20 07:00] VITALS: BP 105/55
[2020-08-20] MEDS: pantoprazole 40mg Tablet.DR PO SCH (07:33)
[2020-08-20] MEDS: spironolactone 25 MG tablet PO SCH (07:33)
[2020-08-20] MEDS: furosemide 40mg tablet PO SCH (07:33)
[2020-08-20] MEDS: albumin (human) 25% 100 ML IV solution IV SCH ×2 (07:35→20:02)
[2020-08-20 07:48] LABS: HEMATOCRIT 25.9 % (35.0-45.0); HEMOGLOBIN 8.8 g/dl (12.0-16.0); MEAN CORPUSCULAR HEMOGLOBIN 32.8 PG (27.0-31.0); MEAN CORPUSCULAR VOLUME 96.7 FL (78-98); MEAN PLATELET VOLUME 8.2 FL (7.4-10.4); RED BLOOD COUNT 2.68 X10'6 (4.20-5.60); RED CELL DISTRIBUTION WIDTH 18.1 % (11.5-14.5); WHITE BLOOD COUNT 1.9 X10'3 (4.5-11.0)
[2020-08-20 08:09] LABS: PLATELET COUNT 40 X10'3 (140-440)
[2020-08-20 08:42] LABS: ALANINE AMINOTRANSFERASE 26 U/L (12-78); ALBUMIN 2.9 G/DL (3.4-5.0); ALBUMIN/GLOBULIN RATIO 1.1 (1.1-1.5); ALKALINE PHOSPHATASE 181 IU/L (46-116); ANION GAP 12 (8-16); ASPARTATE AMINO TRANSFERASE 76 U/L (10-37); BILIRUBIN,TOTAL 4.1 MG/DL (0.1-1.0); BLOOD UREA NITROGEN 28 MG/DL (7-18); BUN/CREATININE RATIO 18.8 (6.6-38.0); CALCIUM 7.8 MG/DL (8.5-10.1); CHLORIDE 102 MMOL/L (99-107); CREATININE 1.49 MG/DL (0.40-0.90); POTASSIUM 3.6 MMOL/L (3.5-5.1); SODIUM 134 MMOL/L (135-145); TOTAL CARBON DIOXIDE 19.6 MMOL/L (24-32); TOTAL PROTEIN 5.6 G/DL (6.4-8.2); eGFR 36 ML/MIN
[2020-08-20 08:45] LABS: PLATELET ESTIMATE DECREASED; TOTAL CELLS COUNTED 100
[2020-08-20 08:46] LABS: ANISOCYTOSIS 2+; GLUCOSE 49 MG/DL (70-104)
--- NOTE | 2020-08-20 09:06 | NUR ---
Paged Dr. Huff promotional table spacer PAGER ID: [phone] MESSAGE: Re: Ayah Walters RM 3027B. Critical values PLT 40, H/H down to 8.8 from 10.2. Please advise. Jenna MUHAMMAD [phone]
--- NOTE | 2020-08-20 09:26 | NUR ---
Paged Dr. Huff PAGER ID: [phone] MESSAGE: Re: Ayah Walters RM 3027D. Do you want patient on ETOH withdrawal protocol? PT BS 49. Please advise. Jenna MUHAMMAD [phone]
--- NOTE | 2020-08-20 09:46 | NUR ---
Dr. Huff at bedside with Nurse and the patient. Patient would like to stay and receive treatment. MD ok to put patient on ETOH protocol and ACHS to maintain sugars. BS 49 this AM. MDs goal is to maintain 4-6 Bowel movements a day and is OK if patient does not get all the lactulose in a day as long as Bowel movements are between 4-6. Today patient has had two BMs as of now with a refusal of first lactulose. Will continue to monitor.
[2020-08-20] MEDS ORDERED: haloperidol lactate 5mg/ml inj IM PRN (09:50)
[2020-08-20] MEDS ORDERED: haloperidol 5mg tablet PO PRN (09:50)
[2020-08-20] MEDS ORDERED: thiamine 100mg/ml 2ml inj. IV ONE (09:50)
[2020-08-20] MEDS: LORazepam 2 mg/ml vial IV PRN ×2 (10:47→20:03)
[2020-08-20 11:00] VITALS: BP 91/50
[2020-08-20] MEDS ORDERED: thiamine inj. 100 MG in normal saline 100ml IV soln 99 ML IV ONE (11:00)
[2020-08-20 15:00] VITALS: BP 115/73
--- NOTE | 2020-08-20 15:19 | NUR ---
Patient refused Lactulose all day. MD cueva
[2020-08-21] MEDS: lactulose 20gm/30ml cup PO SCH ×4 (02:00→20:00)
[2020-08-21] MEDS: LORazepam 2 mg/ml vial IV PRN ×2 (02:08→08:29)
[2020-08-21] MEDS: ondansetron/PF 4mg/2ml inj IV PRN (05:19)
[2020-08-21 06:00] VITALS: BP 110/71
--- NOTE | 2020-08-21 06:00 | NUR ---
REPORT RECEIVED FROM VERA MUHAMMAD. PT SLEEPING AT THIS TIME PT LAYING BED WITH BED AT LOWEST POSTION. ASSUME CARE AT HTIS TIME
[2020-08-21 08:18] LABS: BASOPHILS % (AUTO) 1.3 % (0-1); EOSINOPHILS % (AUTO) 0.3 % (0-6); HEMATOCRIT 23.9 % (35.0-45.0); HEMOGLOBIN 8.1 g/dl (12.0-16.0); LYMPHOCYTES # (AUTO) 0.5 X10'3 (1.1-4.8); LYMPHOCYTES % (AUTO) 25.7 % (21-51); MEAN CORPUSCULAR HEMOGLOBIN 32.4 PG (27.0-31.0); MEAN CORPUSCULAR HGB CONC 33.6 g/dL (33.0-36.5); MEAN CORPUSCULAR VOLUME 96.4 FL (78-98); MEAN PLATELET VOLUME 9.1 FL (7.4-10.4); MONOCYTES # (AUTO) 0.4 X10'3 (0-0.9); MONOCYTES % (AUTO) 19.2 % (2-12); NEUTROPHILS # (AUTO) 1.1 X10'3 (1.8-7.7); NEUTROPHILS % (AUTO) 53.5 % (42-75); RED BLOOD COUNT 2.48 X10'6 (4.20-5.60); RED CELL DISTRIBUTION WIDTH 18.4 % (11.5-14.5)
[2020-08-21 08:25] LABS: PLATELET COUNT 39 X10'3 (140-440)
[2020-08-21] MEDS: pantoprazole 40mg Tablet.DR PO SCH (08:27)
[2020-08-21] MEDS: furosemide 40mg tablet PO SCH (08:27)
[2020-08-21] MEDS: spironolactone 25 MG tablet PO SCH (08:29)
[2020-08-21] MEDS: albumin (human) 25% 100 ML IV solution IV SCH (08:30)
--- NOTE | 2020-08-21 08:45 | NUR ---
PAGER ID: [phone] MESSAGE: BIPIN VIZCAINO THIS IS [facility] PCU, PT IN 27 B LANIE HAS A PLT COUNT OF 39. THANKS
[2020-08-21 08:46] LABS: ALANINE AMINOTRANSFERASE 24 U/L (12-78); ALBUMIN 3.1 G/DL (3.4-5.0); ALKALINE PHOSPHATASE 157 IU/L (46-116); ANION GAP 11 (8-16); ASPARTATE AMINO TRANSFERASE 71 U/L (10-37); BLOOD UREA NITROGEN 25 MG/DL (7-18); BUN/CREATININE RATIO 16.7 (6.6-38.0); CALCIUM 8.2 MG/DL (8.5-10.1); CHLORIDE 100 MMOL/L (99-107); GLUCOSE 114 MG/DL (70-104); POTASSIUM 3.7 MMOL/L (3.5-5.1); SODIUM 131 MMOL/L (135-145); TOTAL CARBON DIOXIDE 19.9 MMOL/L (24-32); eGFR 36 ML/MIN
[2020-08-21 08:49] LABS: ALBUMIN/GLOBULIN RATIO 1.3 (1.1-1.5); ANISOCYTOSIS 2+; NUCLEATED RED BLOOD CELLS 1 /100WBC (0-0); PLATELET ESTIMATE DECREASED; TOTAL CELLS COUNTED 100; TOTAL PROTEIN 5.5 G/DL (6.4-8.2)
[2020-08-21 08:52] LABS: POLYCHROMASIA 1+; TARGET CELLS 1+
[2020-08-21 11:00] VITALS: BP 121/69
--- NOTE | 2020-08-21 13:00 | NUR ---
PT HAVING LARGE STOOL LIQUID. PT CLEAN UP AND PLACED BACK TO BED. PT DENIES ANY ACUTE DISTRESS. PENDING PARACENTESIS.
[2020-08-21 15:00] VITALS: BP 111/73
--- NOTE | 2020-08-21 18:30 | NUR ---
FOUND PATIENT ON FLOOR. PT TRYING TO USE RESTROOM. PT REACHED TO CLEANED HERSELF AND FELL SHES STATED. PT ASSES ON THE FLOOR. NO APPARENT INJURY. SMALL OR MINIMAL BLEEDING TO INNER GUM. NO DISTRESS S STABLE. NOTIFIED. PLACE PATIENT BACK IN BED. NO DISTRESS NOTED. WILL PASS ON REPORT
[2020-08-22] MEDS: lactulose 20gm/30ml cup PO SCH ×2 (02:00→07:48)
[2020-08-22] MEDS ORDERED: albumin (human) 25% 100 ML IV solution IV SCH (03:03)
[2020-08-22] MEDS ORDERED: albumin (human) 25% 100 ML IV solution IV ONE ×3 (03:05→10:25)
[2020-08-22 07:00] VITALS: BP 118/71
[2020-08-22] MEDS: spironolactone 25 MG tablet PO SCH (07:48)
[2020-08-22] MEDS: furosemide 40mg tablet PO SCH (07:49)
[2020-08-22] MEDS: pantoprazole 40mg Tablet.DR PO SCH (07:49)
[2020-08-22 08:16] LABS: HEMOGLOBIN 8.5 g/dl (12.0-16.0); LYMPHOCYTES # (AUTO) 0.5 X10'3 (1.1-4.8); MONOCYTES # (AUTO) 0.4 X10'3 (0-0.9); NEUTROPHILS # (AUTO) 1.1 X10'3 (1.8-7.7); WHITE BLOOD COUNT 2.1 X10'3 (4.5-11.0)
[2020-08-22 08:20] LABS: BASOPHILS % (AUTO) 0.9 % (0-1); EOSINOPHILS % (AUTO) 0.8 % (0-6); LYMPHOCYTES % (AUTO) 25.6 % (21-51); MEAN CORPUSCULAR HEMOGLOBIN 32.6 PG (27.0-31.0); MEAN CORPUSCULAR HGB CONC 34.1 g/dL (33.0-36.5); MEAN CORPUSCULAR VOLUME 95.8 FL (78-98); MEAN PLATELET VOLUME 10.2 FL (7.4-10.4); MONOCYTES % (AUTO) 18.8 % (2-12); NEUTROPHILS % (AUTO) 53.9 % (42-75); RED BLOOD COUNT 2.61 X10'6 (4.20-5.60); RED CELL DISTRIBUTION WIDTH 18.2 % (11.5-14.5)
[2020-08-22 08:27] LABS: PLATELET COUNT 44 X10'3 (140-440)
[2020-08-22 08:34] LABS: BILIRUBIN,TOTAL 6.6 MG/DL (0.1-1.0); BLOOD UREA NITROGEN 23 MG/DL (7-18); BUN/CREATININE RATIO 17.2 (6.6-38.0); CHLORIDE 100 MMOL/L (99-107); CREATININE 1.34 MG/DL (0.40-0.90); GLUCOSE 64 MG/DL (70-104); POTASSIUM 3.5 MMOL/L (3.5-5.1); SODIUM 133 MMOL/L (135-145); eGFR 41 ML/MIN
[2020-08-22 08:37] LABS: ALANINE AMINOTRANSFERASE 22 U/L (12-78); ALBUMIN 3.5 G/DL (3.4-5.0); ALBUMIN/GLOBULIN RATIO 1.5 (1.1-1.5); ALKALINE PHOSPHATASE 143 IU/L (46-116); ASPARTATE AMINO TRANSFERASE 59 U/L (10-37); TOTAL CARBON DIOXIDE 22.4 MMOL/L (24-32); TOTAL PROTEIN 5.8 G/DL (6.4-8.2)
[2020-08-22] MEDS ORDERED: LACT10SO32 PO (08:45)
[2020-08-22 09:01] VITALS: BP 130/91
[2020-08-22 09:07] LABS: CALCIUM 8.5 MG/DL (8.5-10.1)
[2020-08-22 09:26] LABS: ANION GAP 11 (8-16)
[2020-08-22 09:29] VITALS: BP 132/85
[2020-08-22] MEDS ORDERED: LORazepam 2 mg/ml vial IV PRN (09:50)
[2020-08-22] MEDS ORDERED: LORazepam 1 MG tablet PO PRN (09:50)
--- NOTE | 2020-08-22 09:58 | NUR ---
rounded with Dr. Andrew this morning, sbar given, emar reviewed, patient condition given, and informed of plt count. Stated the patient is okay to discharge after paracentesis
[2020-08-22 10:13] LABS: TOTAL CELLS COUNTED 100
[2020-08-22 10:15] LABS: ANISOCYTOSIS 2+; PLATELET ESTIMATE DECREASED
[2020-08-22 10:16] LABS: HYPOCHROMASIA 1+
[2020-08-22] MEDS: ondansetron/PF 4mg/2ml inj IV PRN (10:37)
--- NOTE | 2020-08-22 12:41 | NUR ---
patient discharge by CRN while I was in lunch, las vitals temp 98.7 HR 102 RR 19 RA 100% sats, 125/ 89, patient AOx4 and ambulatory.
[2020-08-24] MEDS ORDERED: LORazepam 2 mg/ml vial IV PRN (09:50)
[2020-08-24] MEDS ORDERED: LORazepam 1 MG tablet PO PRN (09:50)
== END 2020-08-22 12:22 | disposition home or self-care (01) | DRG 441 ==
LOC: ER 10:37 → ED HOLD 13:28 → PCU 3S 17:35
PROVIDERS: ADMIT Internal Medicine; ATTEND Internal Medicine
PROC: 0W9G3ZZ Drainage of Peritoneal Cavity, Percutaneous Approach (ICD-10-PCS; principal; 2020-08-22)
DX: K72.90 Hepatic failure, unspecified without coma (principal); G93.41 Metabolic encephalopathy; E87.1 Hypo-osmolality and hyponatremia; N17.9 Acute kidney failure, unspecified; D61.818 Other pancytopenia; K70.31 Alcoholic cirrhosis of liver with ascites; I95.9 Hypotension, unspecified; E16.2 Hypoglycemia, unspecified; K21.9 Gastro-esophageal reflux disease without esophagitis; Z79.899 Other long term (current) drug therapy; N18.30 Chronic kidney disease, stage 3 unspecified; D69.59 Other secondary thrombocytopenia; F10.20 Alcohol dependence, uncomplicated; Y90.9 Presence of alcohol in blood, level not specified; D53.9 Nutritional anemia, unspecified
CPT/HCPCS: 36415; 49083; 80053; 80320; 82140; 82948; 85007; 85008; 85025; 85610; 93005; 96365; 99285; G0378; J2060; J2405; J3411; J7030; P9047

== ENCOUNTER 2020-08-30 06:16 | Day surgery (SDC) | payer BC ==
[~2020-08-30] VITALS: Ht 165.1 cm; Wt 74.3 kg
[2020-08-30] VITALS (8 sets, daily range): BP systolic 92–100; BP diastolic 65–74
[~2020-08-30 06:16] MED LIST changes: -FERR-28 PO; -FURO-150 PO; +FURO20TA4 PO; +LACT10SO32 PO; -POTA-82 PO; +SPIR100T5 PO; -SPIR50TA PO
[2020-08-30] MEDS ORDERED: LACT10SO7 PO (06:38)
[2020-08-30] MEDS ORDERED: albumin 25% 100mL bottle x 1 IV PRN (06:45)
== END 2020-08-30 10:30 | disposition home or self-care (01) ==
LOC: SSTAY O 06:16
PROVIDERS: ATTEND Radiology Diagnostic Radiology
DX: K70.31 Alcoholic cirrhosis of liver with ascites (principal); F10.10 Alcohol abuse, uncomplicated; E87.6 Hypokalemia; K21.9 Gastro-esophageal reflux disease without esophagitis; D69.6 Thrombocytopenia, unspecified; N18.6 End stage renal disease; Z72.89 Other problems related to lifestyle; Z98.890 Other specified postprocedural states; Z79.899 Other long term (current) drug therapy
CPT/HCPCS: 49083; P9047

== ENCOUNTER 2020-09-09 06:01 | Day surgery (SDC) | payer BC ==
[~2020-09-09] VITALS: Ht 165.1 cm; Wt 74.6 kg
[~2020-09-09 06:01] MED LIST changes: -LACT10SO32 PO; +LACT10SO7 PO
[2020-09-09 06:15] VITALS: BP 98/65
[2020-09-09] MEDS ORDERED: albumin 25% 100mL bottle x 1 IV PRN (06:20)
[2020-09-09] MEDS ORDERED: ESCI10TA PO (06:29)
[2020-09-09] MEDS ORDERED: ondansetron/PF 4mg/2ml inj ONE (06:46)
[2020-09-09 08:15] VITALS: BP 105/71
[2020-09-09 08:30] VITALS: BP 105/70
[2020-09-09 08:45] VITALS: BP 107/71
[2020-09-09 09:00] VITALS: BP 107/71
[2020-09-09 09:10] VITALS: BP 107/70
== END 2020-09-09 09:21 | disposition home or self-care (01) ==
LOC: SSTAY O 06:01
PROVIDERS: ATTEND Radiology Vascular & Interventional Radiology
DX: K70.31 Alcoholic cirrhosis of liver with ascites (principal); E87.6 Hypokalemia; K21.9 Gastro-esophageal reflux disease without esophagitis; D69.6 Thrombocytopenia, unspecified; N18.6 End stage renal disease; F10.20 Alcohol dependence, uncomplicated; Z79.899 Other long term (current) drug therapy
CPT/HCPCS: 49083; J2405; P9047

== ENCOUNTER 2020-09-22 06:56 | Day surgery (SDC) | payer BC ==
[2020-09-22] VITALS (9 sets, daily range): BP systolic 86–98; BP diastolic 52–62
[~2020-09-22] VITALS: Ht 165.1 cm; Wt 72.3 kg
[~2020-09-22 06:56] MED LIST changes: +ESCI10TA PO
[2020-09-22] MEDS ORDERED: albumin 25% 100mL bottle x 1 IV PRN (07:30)
== END 2020-09-22 11:17 | disposition home or self-care (01) ==
LOC: SSTAY O 06:56
PROVIDERS: ATTEND Radiology Diagnostic Radiology
DX: K70.31 Alcoholic cirrhosis of liver with ascites (principal); K21.9 Gastro-esophageal reflux disease without esophagitis; Z72.89 Other problems related to lifestyle; N18.30 Chronic kidney disease, stage 3 unspecified; Z79.899 Other long term (current) drug therapy; Z98.890 Other specified postprocedural states
CPT/HCPCS: 49083; P9047

== ENCOUNTER 2020-10-04 13:24 | Emergency (ER) | payer BC ==
[~2020-10-04] VITALS: Ht 165.1 cm; Wt 75.0 kg
[2020-10-04] MEDS ORDERED: lactulose 20gm/30ml cup PO ONE (14:20)
[2020-10-04] MEDS ORDERED: normal saline 1000ML IV soln IVB ONE (14:20)
[2020-10-04] MEDS ORDERED: ondansetron/PF 4mg/2ml inj IV ONE (14:50)
[2020-10-04] MEDS ORDERED: rifaximin 550mg tablet PO SCH (14:50)
[2020-10-04] MEDS ORDERED: rifaximin 550mg tablet PO ONE ×2 (14:50→20:00)
[2020-10-04 15:00] LABS: BASOPHILS % (AUTO) 1.3 % (0-1); EOSINOPHILS % (AUTO) 0.4 % (0-6); HEMOGLOBIN 8.3 g/dl (12.0-16.0); LYMPHOCYTES # (AUTO) 0.9 X10'3 (1.1-4.8); MEAN CORPUSCULAR HEMOGLOBIN 33.7 PG (27.0-31.0); MEAN CORPUSCULAR VOLUME 102.4 FL (78-98); MONOCYTES # (AUTO) 0.5 X10'3 (0-0.9); MONOCYTES % (AUTO) 15.9 % (2-12); NEUTROPHILS # (AUTO) 1.8 X10'3 (1.8-7.7); NEUTROPHILS % (AUTO) 55.4 % (42-75); PLATELET COUNT 77 X10'3 (140-440); RED BLOOD COUNT 2.45 X10'6 (4.20-5.60); RED CELL DISTRIBUTION WIDTH 15.2 % (11.5-14.5); WHITE BLOOD COUNT 3.2 X10'3 (4.5-11.0)
[2020-10-04 15:04] VITALS: BP 94/60
[2020-10-04 15:16] LABS: ALANINE AMINOTRANSFERASE 30 U/L (12-78); ALBUMIN 2.3 G/DL (3.4-5.0); ALBUMIN/GLOBULIN RATIO 0.6 (1.1-1.5); ALKALINE PHOSPHATASE 247 IU/L (46-116); ANION GAP 6 (8-16); ASPARTATE AMINO TRANSFERASE 86 U/L (10-37); BILIRUBIN,TOTAL 1.9 MG/DL (0.1-1.0); BLOOD UREA NITROGEN 42 MG/DL (7-18); BUN/CREATININE RATIO 26.6 (6.6-38.0); CALCIUM 8.2 MG/DL (8.5-10.1); CHLORIDE 98 MMOL/L (99-107); CREATININE 1.58 MG/DL (0.40-0.90); GLUCOSE 91 MG/DL (70-104); POTASSIUM 4.8 MMOL/L (3.5-5.1); SODIUM 125 MMOL/L (135-145); TOTAL CARBON DIOXIDE 21.1 MMOL/L (24-32); eGFR 34 ML/MIN
[2020-10-04 15:24] LABS: TOTAL CELLS COUNTED 100
[2020-10-04 15:25] LABS: PLATELET ESTIMATE DECREASED
[2020-10-04 15:26] LABS: ANISOCYTOSIS 1+; ETHANOL 0.373 GM/DL (0.0-0.010)
--- NOTE | 2020-10-04 16:50 | NUR ---
Called and left message for Miles to picking crew supervisor patient.
== END 2020-10-04 17:33 | disposition home or self-care (01) ==
LOC: ER 13:25
DX: F10.920 Alcohol use, unspecified with intoxication, uncomplicated (principal); K70.31 Alcoholic cirrhosis of liver with ascites; N18.9 Chronic kidney disease, unspecified; Z79.899 Other long term (current) drug therapy
CPT/HCPCS: 70450; 71045; 80053; 80320; 82140; 85007; 85025; 93005; 96361; 96374; 99285; J2405; J7030

== ENCOUNTER 2020-10-10 06:46 | Inpatient (IN) | payer BC ==
[~2020-10-10] VITALS: Ht 165.1 cm; Wt 77.3 kg
[2020-10-10 07:52] LABS: EOSINOPHILS % (AUTO) 0.4 % (0-6); HEMOGLOBIN 7.6 g/dl (12.0-16.0); LYMPHOCYTES # (AUTO) 1.1 X10'3 (1.1-4.8); LYMPHOCYTES % (AUTO) 28.6 % (21-51); MEAN CORPUSCULAR HEMOGLOBIN 33.4 PG (27.0-31.0); MEAN CORPUSCULAR HGB CONC 33.2 g/dL (33.0-36.5); MEAN CORPUSCULAR VOLUME 100.7 FL (78-98); MONOCYTES # (AUTO) 0.6 X10'3 (0-0.9); MONOCYTES % (AUTO) 14.4 % (2-12); NEUTROPHILS # (AUTO) 2.2 X10'3 (1.8-7.7); NEUTROPHILS % (AUTO) 55.6 % (42-75); PLATELET COUNT 73 X10'3 (140-440); RED BLOOD COUNT 2.28 X10'6 (4.20-5.60); RED CELL DISTRIBUTION WIDTH 15.3 % (11.5-14.5); WHITE BLOOD COUNT 3.9 X10'3 (4.5-11.0)
[2020-10-10 07:57] LABS: ALANINE AMINOTRANSFERASE 32 U/L (12-78); ALBUMIN 2.1 G/DL (3.4-5.0); ALBUMIN/GLOBULIN RATIO 0.6 (1.1-1.5); ALKALINE PHOSPHATASE 229 IU/L (46-116); ANION GAP 11 (8-16); ASPARTATE AMINO TRANSFERASE 101 U/L (10-37); BILIRUBIN,TOTAL 1.5 MG/DL (0.1-1.0); BLOOD UREA NITROGEN 36 MG/DL (7-18); BUN/CREATININE RATIO 19.6 (6.6-38.0); CALCIUM 7.5 MG/DL (8.5-10.1); CHLORIDE 100 MMOL/L (99-107); CREATININE 1.84 MG/DL (0.40-0.90); GLUCOSE 76 MG/DL (70-104); SODIUM 128 MMOL/L (135-145); TOTAL CARBON DIOXIDE 17.5 MMOL/L (24-32); TOTAL PROTEIN 5.8 G/DL (6.4-8.2); eGFR 28 ML/MIN
[2020-10-10 08:03] LABS: LIPASE 577 U/L (73-393)
[2020-10-10 08:05] LABS: ETHANOL 0.375 GM/DL (0.0-0.010); POTASSIUM 4.5 MMOL/L (3.5-5.1)
[2020-10-10 08:30] LABS: CLARITY,URINE CLOUDY (Clear); COLOR,URINE YELLOW (Yellow); GLUCOSE, URINE NEGATIVE (Neg); KETONES,URINE NEGATIVE (Neg); LEUKOCYTE ESTERASE ,URINE NEGATIVE (Neg); NITRITES, URINE NEGATIVE (Neg); OCCULT BLOOD,URINE NEGATIVE (Neg); PROTEIN,URINE NEGATIVE (Neg); UA COLLECTION TYPE STRAIGHT CATH; UROBILINOGEN,URINE 0.2 E.U/dL (0.2-1.0)
[2020-10-10 08:47] LABS: SQUAMOUS EPITHELIAL CELL,UR FEW /LPF (FEW)
[2020-10-10 08:48] LABS: BACTERIA,URINE 4+ /HPF (Neg)
[2020-10-10 08:49] LABS: RBC,URINE 0-2 /HPF (0-2); WBC,URINE 0-4 /HPF (0-4)
--- NOTE | 2020-10-10 08:54 | NUR ---
present at bedside, while pt did rectal exam, pt tolerated well
[2020-10-10 08:55] LABS: URINE AMPHETAMINE SCREEN NEGATIVE (Neg); URINE BARBITUATE SCREEN NEGATIVE (Neg); URINE BENZODIAZEPINES SCREEN NEGATIVE (Neg); URINE CANNABINOID SCREEN NEGATIVE (Neg); URINE COCAINE SCREEN NEGATIVE (Neg); URINE METHADONE SCREEN NEGATIVE (Neg); URINE OPIATE SCREEN NEGATIVE (Neg); URINE PHENCYCLIDINE SCREEN NEGATIVE (Neg)
[2020-10-10] MEDS ORDERED: haloperidol 5mg tablet PO PRN (11:10)
[2020-10-10] MEDS ORDERED: haloperidol lactate 5mg/ml inj IM PRN (11:10)
[2020-10-10] MEDS ORDERED: mag hydrox/Alum hydrox/simeth 30ml oral suspension PO PRN (11:10)
[2020-10-10] MEDS ORDERED: magnesium 2GM in 50ml NS 50 ML IV PRN (11:10)
[2020-10-10] MEDS ORDERED: octreotide inj. 1,250 MCG in normal saline 250ml IV soln 243.75 ML IV SCH (11:10)
[2020-10-10] MEDS ORDERED: thiamine inj. 100 MG in normal saline 100ml IV soln 100 ML IV ONE (11:10)
[2020-10-10] MEDS ORDERED: acetaminophen 325mg tablet PO PRN (11:10)
[2020-10-10] MEDS ORDERED: magnesium Cl slow-release 64mg tablet PO PRN (11:10)
[2020-10-10] MEDS ORDERED: morphine 2 MG/ML inj. syringe IV PRN ×2 (11:10)
[2020-10-10] MEDS ORDERED: magnesium 4gm in 100ml NS 100 ML IV PRN (11:10)
[2020-10-10] MEDS ORDERED: potassium Cl 40MEQ/1/2NS 520ml 520 ML IV PRN ×2 (11:10)
[2020-10-10] MEDS ORDERED: potassium Cl 20 mEq SR tablet PO PRN ×2 (11:10)
[2020-10-10] MEDS ORDERED: HYDR50TA65 PO (13:13)
--- NOTE | 2020-10-10 13:28 | NUR ---
Patient report received from Tomer MUHAMMAD. Patient arrived to unit via stretcher. patient able to transfer (slide) into bed. Alert and oriented x3. Blood glucose 54. Charge nurse and primary care physician notified.
[2020-10-10] MEDS: lactulose 20gm/30ml cup PO SCH ×2 (14:04→21:00)
[2020-10-10 14:40] VITALS: BP 79/42
[2020-10-10] MEDS ORDERED: dextrose 50%-water 50ml dispensing syringe IV PRN ×2 (14:40)
[2020-10-10] MEDS ORDERED: glucagon, human recombinant 1mg kit SUBCUT PRN (14:40)
[2020-10-10] MEDS ORDERED: dextrose ORAL solution 15 GM/59 ML bottle PO PRN (14:40)
[2020-10-10] MEDS: ondansetron/PF 4mg/2ml inj IV PRN (14:54)
--- NOTE | 2020-10-10 15:06 | NUR ---
Dr. Martin aware of patient low BP and said that this is how her BP trends are and is documented. He also ordered hypoglycemia protocol for low Blood sugar. Patient aslo medicated with zofran for vomiting.
[2020-10-10] MEDS: pantoprazole 40MG/NS 100ML BAG 100 ML IV SCH ×2 (16:32→21:30)
[2020-10-10] MEDS ORDERED: ESCI-8 PO (17:35)
--- NOTE | 2020-10-10 17:51 | NUR ---
Notified Dr Martin that [id number] Miss Walters complains that she is unable to void. Patient tried unsuccessfully on the bedpan. I bladder scanned her and got 1153 highest amount and 283 lowest. Just notifying you. Order to place rubalcava per protocol.
[2020-10-10 18:00] VITALS: BP 92/58
--- NOTE | 2020-10-10 18:40 | NUR ---
Patient in room ORTHO 4009. I have received report from JB Khoury and had the opportunity to ask questions and assume patient care.
[2020-10-10] MEDS: K and/or MAG REPLACEMENT MC SCH (20:00)
[2020-10-10 22:00] VITALS: BP 81/56
[2020-10-11] VITALS (14 sets, daily range): BP systolic 90–118; BP diastolic 52–74
[2020-10-11] MEDS: pantoprazole 40MG/NS 100ML BAG 100 ML IV SCH ×3 (01:09→11:00)
--- NOTE | 2020-10-11 06:34 | NUR ---
Problems reprioritized. Patient report given, questions answered & plan of care reviewed with JB Teresa.
--- NOTE | 2020-10-11 06:51 | NUR ---
Patient in room ORTHO 4009A. I have received report from JB GAMEZ and had the opportunity to ask questions and assume patient care.
[2020-10-11 07:35] LABS: HEMOGLOBIN 7.2 g/dl (12.0-16.0); MEAN CORPUSCULAR HEMOGLOBIN 33.2 PG (27.0-31.0); MEAN CORPUSCULAR HGB CONC 33.2 g/dL (33.0-36.5); MEAN PLATELET VOLUME 7.8 FL (7.4-10.4); RED BLOOD COUNT 2.18 X10'6 (4.20-5.60); RED CELL DISTRIBUTION WIDTH 15.2 % (11.5-14.5); WHITE BLOOD COUNT 4.1 X10'3 (4.5-11.0)
[2020-10-11 07:42] LABS: HEMATOCRIT 21.8 % (35.0-45.0); PLATELET COUNT 50 X10'3 (140-440)
[2020-10-11] MEDS: thiamine 100mg tablet PO SCH (08:00)
[2020-10-11] MEDS: multivitamins, therapeutics tablet PO SCH (08:00)
[2020-10-11] MEDS: lactulose 20gm/30ml cup PO SCH ×3 (08:00→19:41)
[2020-10-11] MEDS: folic acid 1mg tablet PO SCH (08:00)
[2020-10-11] MEDS: K and/or MAG REPLACEMENT MC SCH ×2 (08:00→19:39)
[2020-10-11 08:22] LABS: ALANINE AMINOTRANSFERASE 30 U/L (12-78); ALBUMIN 1.9 G/DL (3.4-5.0); ALBUMIN/GLOBULIN RATIO 0.6 (1.1-1.5); ALKALINE PHOSPHATASE 208 IU/L (46-116); AMYLASE 42 U/L (25-115); ANION GAP 12 (8-16); ASPARTATE AMINO TRANSFERASE 88 U/L (10-37); BILIRUBIN,TOTAL 2.2 MG/DL (0.1-1.0); BLOOD UREA NITROGEN 38 MG/DL (7-18); CALCIUM 7.6 MG/DL (8.5-10.1); CHLORIDE 101 MMOL/L (99-107); CREATININE 2.23 MG/DL (0.40-0.90); GLUCOSE 73 MG/DL (70-104); LIPASE 445 U/L (73-393); MAGNESIUM 2.1 MG/DL (1.5-2.4); PHOSPHORUS 5.1 MG/DL (2.3-4.5); POTASSIUM 5.2 MMOL/L (3.5-5.1); SODIUM 128 MMOL/L (135-145); TOTAL CARBON DIOXIDE 15.3 MMOL/L (24-32); TOTAL PROTEIN 5.2 G/DL (6.4-8.2); eGFR 23 ML/MIN
[2020-10-11] MEDS: nicotine 7mg patch - 24hr TD SCH (08:43)
[2020-10-11 11:03] LABS: HEMOGLOBIN 7.1 g/dl (12.0-16.0); MEAN CORPUSCULAR HEMOGLOBIN 33.2 PG (27.0-31.0); MEAN CORPUSCULAR HGB CONC 32.8 g/dL (33.0-36.5); MEAN CORPUSCULAR VOLUME 101.1 FL (78-98); MEAN PLATELET VOLUME 8.4 FL (7.4-10.4); PLATELET COUNT 52 X10'3 (140-440); RED BLOOD COUNT 2.13 X10'6 (4.20-5.60); RED CELL DISTRIBUTION WIDTH 15.1 % (11.5-14.5); WHITE BLOOD COUNT 4.2 X10'3 (4.5-11.0)
[2020-10-11 11:10] LABS: HEMATOCRIT 21.6 % (35.0-45.0)
[2020-10-11] MEDS ORDERED: fentaNYL/PF 50MCG/1 ML 2ML syringe ONE (11:31)
[2020-10-11] MEDS ORDERED: MIDAZolam 1 MG/ML 5ML VIAL ONE (11:31)
[2020-10-11] MEDS ORDERED: LIDOcaine Viscous 15ml cup ONE (11:31)
[2020-10-11] MEDS: ondansetron/PF 4mg/2ml inj IV PRN (11:37)
[2020-10-11] MEDS: dextrose ORAL solution 15 GM/59 ML bottle PO PRN (14:47)
[2020-10-11] MEDS ORDERED: albumin (human) 25% 100 ML IV solution IV ONE (16:40)
--- NOTE | 2020-10-11 18:43 | NUR ---
I have received report from Brii MUHAMMAD and had the opportunity to ask questions and assume patient care.
--- NOTE | 2020-10-11 18:49 | NUR ---
Problems reprioritized. Patient report given, questions answered & plan of care reviewed with JB MACEDO.
[2020-10-11] MEDS: pantoprazole 40 MG vial IV SCH (19:40)
[2020-10-11] MEDS: normal saline 1000ml 1,000 ML IV SCH (19:40)
[2020-10-11 19:43] LABS: MEAN CORPUSCULAR HEMOGLOBIN 33.5 PG (27.0-31.0); MEAN CORPUSCULAR HGB CONC 32.6 g/dL (33.0-36.5); MEAN CORPUSCULAR VOLUME 102.8 FL (78-98); MEAN PLATELET VOLUME 8.8 FL (7.4-10.4); RED BLOOD COUNT 1.98 X10'6 (4.20-5.60); RED CELL DISTRIBUTION WIDTH 15.6 % (11.5-14.5); WHITE BLOOD COUNT 3.2 X10'3 (4.5-11.0)
[2020-10-11] MEDS: LORazepam 2 mg/ml vial IV PRN (19:59)
[2020-10-11 20:10] LABS: HEMOGLOBIN 6.6 g/dl (12.0-16.0)
[2020-10-11 20:12] LABS: HEMATOCRIT 20.3 % (35.0-45.0); PLATELET COUNT 43 X10'3 (140-440)
[2020-10-11] MEDS ORDERED: diphenhydrAMINE 50 mg/ml inj IV ONE (20:25)
[2020-10-11] MEDS ORDERED: acetaminophen 325mg tablet PO ONE (20:25)
[2020-10-12] VITALS (11 sets, daily range): BP systolic 88–115; BP diastolic 51–78
[2020-10-12 00:30] LABS: HEMATOCRIT 23.2 % (35.0-45.0); HEMOGLOBIN 7.7 g/dl (12.0-16.0); MEAN CORPUSCULAR HGB CONC 33.3 g/dL (33.0-36.5); MEAN PLATELET VOLUME 8.4 FL (7.4-10.4); RED BLOOD COUNT 2.34 X10'6 (4.20-5.60); RED CELL DISTRIBUTION WIDTH 15.4 % (11.5-14.5); WHITE BLOOD COUNT 2.1 X10'3 (4.5-11.0)
[2020-10-12 00:32] LABS: PLATELET COUNT 36 X10'3 (140-440)
--- NOTE | 2020-10-12 01:45 | NUR ---
paged at 0030:pt Janel Walters has a critical platelet of 36 (was 43). pt hbg increased to 7.7 (was 6.6) and Hct 23.2 (was 20.3). would you like any new orders? no new orders received
--- NOTE | 2020-10-12 01:49 | NUR ---
paged: pt Janel Walters in room 1406G had a bowel movement with dominique red blood. hemogram is ordered with AM labs.
[2020-10-12] MEDS: LORazepam 2 mg/ml vial IV PRN (03:02)
[2020-10-12] MEDS: normal saline 1000ml 1,000 ML IV SCH ×2 (04:55→15:33)
--- NOTE | 2020-10-12 06:35 | NUR ---
Patient in room ORTHO 4009. I have received report from Rona MUHAMMAD and had the opportunity to ask questions and assume patient care.
--- NOTE | 2020-10-12 06:36 | NUR ---
Problems reprioritized. Patient report given, questions answered & plan of care reviewed with Ina MUHAMMAD.
--- NOTE | 2020-10-12 06:42 | NUR ---
Patient in room ORTHO 4009. I have received report from JB Rea and had the opportunity to ask questions and assume patient care.
[2020-10-12 07:43] LABS: MEAN CORPUSCULAR HEMOGLOBIN 33.1 PG (27.0-31.0); MEAN CORPUSCULAR HGB CONC 33.6 g/dL (33.0-36.5); MEAN CORPUSCULAR VOLUME 98.7 FL (78-98); MEAN PLATELET VOLUME 8.8 FL (7.4-10.4); RED BLOOD COUNT 2.06 X10'6 (4.20-5.60); RED CELL DISTRIBUTION WIDTH 15.9 % (11.5-14.5); WHITE BLOOD COUNT 2.5 X10'3 (4.5-11.0)
[2020-10-12] MEDS: dextrose ORAL solution 15 GM/59 ML bottle PO PRN (07:44)
[2020-10-12 07:48] LABS: PARTIAL THROMBOPLASTIN TIME 39 SECONDS (22-32)
[2020-10-12] MEDS: ondansetron/PF 4mg/2ml inj IV PRN (07:50)
[2020-10-12 07:57] LABS: HEMATOCRIT 20.3 % (35.0-45.0); HEMOGLOBIN 6.8 g/dl (12.0-16.0)
[2020-10-12 07:59] LABS: PLATELET COUNT 34 X10'3 (140-440)
[2020-10-12] MEDS: K and/or MAG REPLACEMENT MC SCH ×2 (08:00→20:00)
--- NOTE | 2020-10-12 08:24 | NUR ---
PAGER ID: [phone] MESSAGE: Justine Walters#[id number]- Critical H & H (7.7/23.2) to 6.8/20.3 Plt-34 Please advise. Pt received I unit NOC thank you Ina Cole [phone]
[2020-10-12] MEDS: pantoprazole 40 MG vial IV SCH ×2 (08:28→20:28)
[2020-10-12] MEDS: multivitamins, therapeutics tablet PO SCH (08:28)
[2020-10-12] MEDS: lactulose 20gm/30ml cup PO SCH ×3 (08:28→20:28)
[2020-10-12] MEDS: folic acid 1mg tablet PO SCH (08:28)
[2020-10-12] MEDS: thiamine 100mg tablet PO SCH (08:28)
[2020-10-12] MEDS: nicotine 7mg patch - 24hr TD SCH (08:29)
[2020-10-12] MEDS ORDERED: LORazepam 2 mg/ml vial IV PRN (11:10)
[2020-10-12] MEDS ORDERED: albumin (human) 25% 100ml IV 100 ML IV ONE (11:20)
[2020-10-12 13:10] LABS: HEMATOCRIT 26.3 % (35.0-45.0); HEMOGLOBIN 8.7 g/dl (12.0-16.0); MEAN CORPUSCULAR HEMOGLOBIN 32.4 PG (27.0-31.0); MEAN CORPUSCULAR VOLUME 98.2 FL (78-98); MEAN PLATELET VOLUME 8.6 FL (7.4-10.4); RED BLOOD COUNT 2.67 X10'6 (4.20-5.60); RED CELL DISTRIBUTION WIDTH 16.6 % (11.5-14.5); WHITE BLOOD COUNT 2.7 X10'3 (4.5-11.0)
[2020-10-12 13:13] LABS: PLATELET COUNT 32 X10'3 (140-440)
--- NOTE | 2020-10-12 13:51 | NUR ---
PAGER ID: [phone] MESSAGE: Justine Deng#[phone]- FYI H & H 807/26.3 critical on Plt 32 (34) Than you. Ina [phone]
--- NOTE | 2020-10-12 17:18 | NUR ---
All day pt was refusing to take the lactulose. Another nurse intervened to help explain why it's necessary for her to take it. Pt also refused care throughout the day. She was A&O x2-3, and shaky. At 1700 pt started to gain awareness of her surroundings and verbalized that she understood why the lactulose helps her ammonia levels.
--- NOTE | 2020-10-12 18:15 | NUR ---
Problems reprioritized. Patient report given, questions answered & plan of care reviewed with Galo saravia nurse.
--- NOTE | 2020-10-12 18:16 | NUR ---
Patient report received and discussed with Silvina.
--- NOTE | 2020-10-12 18:20 | NUR ---
Patient report given to JB Rosenthal
[2020-10-12 19:52] LABS: HEMATOCRIT 26.7 % (35.0-45.0); HEMOGLOBIN 8.9 g/dl (12.0-16.0); MEAN CORPUSCULAR HEMOGLOBIN 32.4 PG (27.0-31.0); MEAN CORPUSCULAR HGB CONC 33.3 g/dL (33.0-36.5); MEAN CORPUSCULAR VOLUME 97.3 FL (78-98); MEAN PLATELET VOLUME 8.6 FL (7.4-10.4); RED BLOOD COUNT 2.75 X10'6 (4.20-5.60); WHITE BLOOD COUNT 2.4 X10'3 (4.5-11.0)
[2020-10-12 19:58] LABS: PLATELET COUNT 31 X10'3 (140-440)
[2020-10-13] MEDS: normal saline 1000ml 1,000 ML IV SCH ×2 (04:20→18:25)
--- NOTE | 2020-10-13 06:16 | NUR ---
report given to and discussed with Yaima MUHAMMAD.
[2020-10-13 07:36] LABS: HEMATOCRIT 25.7 % (35.0-45.0); HEMOGLOBIN 8.4 g/dl (12.0-16.0); MEAN CORPUSCULAR HEMOGLOBIN 32.3 PG (27.0-31.0); MEAN CORPUSCULAR HGB CONC 32.8 g/dL (33.0-36.5); MEAN CORPUSCULAR VOLUME 98.5 FL (78-98); MEAN PLATELET VOLUME 9.1 FL (7.4-10.4); RED BLOOD COUNT 2.61 X10'6 (4.20-5.60); WHITE BLOOD COUNT 2.1 X10'3 (4.5-11.0)
[2020-10-13 07:40] LABS: PLATELET COUNT 30 X10'3 (140-440)
--- NOTE | 2020-10-13 07:44 | NUR ---
Dr. Martin paged forcritical platelets of 30 awaiting call back/new orders
[2020-10-13] MEDS: K and/or MAG REPLACEMENT MC SCH ×2 (08:00→20:00)
[2020-10-13 08:05] LABS: ALANINE AMINOTRANSFERASE 22 U/L (12-78); ALBUMIN 2.6 G/DL (3.4-5.0); ALKALINE PHOSPHATASE 160 IU/L (46-116); AMYLASE 31 U/L (25-115); ANION GAP 10 (8-16); ASPARTATE AMINO TRANSFERASE 66 U/L (10-37); BILIRUBIN,TOTAL 3.1 MG/DL (0.1-1.0); BLOOD UREA NITROGEN 40 MG/DL (7-18); BUN/CREATININE RATIO 17.2 (6.6-38.0); CALCIUM 7.9 MG/DL (8.5-10.1); CHLORIDE 107 MMOL/L (99-107); CREATININE 2.32 MG/DL (0.40-0.90); GLUCOSE 60 MG/DL (70-104); LIPASE 279 U/L (73-393); MAGNESIUM 1.9 MG/DL (1.5-2.4); PHOSPHORUS 3.1 MG/DL (2.3-4.5); POTASSIUM 4.2 MMOL/L (3.5-5.1); SODIUM 134 MMOL/L (135-145); TOTAL CARBON DIOXIDE 17.1 MMOL/L (24-32); TOTAL PROTEIN 5.2 G/DL (6.4-8.2); eGFR 22 ML/MIN
[2020-10-13] MEDS: multivitamins, therapeutics tablet PO SCH (08:10)
[2020-10-13] MEDS: dextrose ORAL solution 15 GM/59 ML bottle PO PRN (08:10)
[2020-10-13] MEDS: LORazepam 1 MG tablet PO PRN (08:11)
[2020-10-13] MEDS: folic acid 1mg tablet PO SCH (08:11)
[2020-10-13] MEDS: pantoprazole 40 MG vial IV SCH ×2 (08:11→20:17)
[2020-10-13] MEDS: thiamine 100mg tablet PO SCH (08:12)
[2020-10-13] MEDS: nicotine 7mg patch - 24hr TD SCH (08:15)
--- NOTE | 2020-10-13 08:17 | NUR ---
Spoke with Dr. Martin, no new orders for platelet level, advise am blood glucose level 68 and following protocol. Rec'ed new order to consult nephrology tele med for patient
[2020-10-13] MEDS: lactulose 20gm/30ml cup PO SCH ×3 (08:22→20:17)
[2020-10-13 10:00] VITALS: BP 126/84
[2020-10-13 11:16] LABS: HEMATOCRIT 24.5 % (35.0-45.0); HEMOGLOBIN 8.1 g/dl (12.0-16.0); MEAN CORPUSCULAR HEMOGLOBIN 32.5 PG (27.0-31.0); MEAN CORPUSCULAR HGB CONC 33.1 g/dL (33.0-36.5); MEAN CORPUSCULAR VOLUME 98.2 FL (78-98); RED BLOOD COUNT 2.49 X10'6 (4.20-5.60); WHITE BLOOD COUNT 1.9 X10'3 (4.5-11.0)
[2020-10-13 11:21] LABS: PLATELET COUNT 31 X10'3 (140-440)
[2020-10-13] MEDS: ondansetron/PF 4mg/2ml inj IV PRN (13:48)
[2020-10-13 18:00] VITALS: BP 106/80
[2020-10-13 19:43] LABS: HEMATOCRIT 25.4 % (35.0-45.0); HEMOGLOBIN 8.5 g/dl (12.0-16.0); MEAN CORPUSCULAR HEMOGLOBIN 32.4 PG (27.0-31.0); MEAN CORPUSCULAR HGB CONC 33.3 g/dL (33.0-36.5); MEAN CORPUSCULAR VOLUME 97.3 FL (78-98); RED BLOOD COUNT 2.61 X10'6 (4.20-5.60); RED CELL DISTRIBUTION WIDTH 17.2 % (11.5-14.5); WHITE BLOOD COUNT 2.1 X10'3 (4.5-11.0)
[2020-10-13 19:48] LABS: PLATELET COUNT 34 X10'3 (140-440)
[2020-10-13 22:00] VITALS: BP 121/79
--- NOTE | 2020-10-14 03:31 | NUR ---
patient is refusing to be straight cath for UA sample.
[2020-10-14 05:09] LABS: COLOR,URINE YELLOW (Yellow); GLUCOSE, URINE NEGATIVE (Neg); KETONES,URINE TRACE mg/dl (Neg); LEUKOCYTE ESTERASE ,URINE NEGATIVE (Neg); NITRITES, URINE NEGATIVE (Neg); OCCULT BLOOD,URINE NEGATIVE (Neg); PH,URINE 5.5 (4.8-8.0); PROTEIN,URINE NEGATIVE (Neg); UROBILINOGEN,URINE 0.2 E.U/dL (0.2-1.0)
[2020-10-14 05:20] LABS: TOTAL PROTEIN,URINE RANDOM 13.7 MG/DL
[2020-10-14 05:25] LABS: UA COLLECTION TYPE NON-SPECIFIED
[2020-10-14 05:27] LABS: CLARITY,URINE SLIGHTLY CLOUDY (Clear)
[2020-10-14 05:29] LABS: BACTERIA,URINE 4+ /HPF (Neg); RBC,URINE NONE SEEN /HPF (0-2); SQUAMOUS EPITHELIAL CELL,UR MODERATE /LPF (FEW)
[2020-10-14 06:06] LABS: SODIUM,URINE RANDOM < 15 MEQ/L
--- NOTE | 2020-10-14 06:08 | NUR ---
Report given to and discussed with Farzana JB.
[2020-10-14] MEDS: normal saline 1000ml 1,000 ML IV SCH ×2 (06:43→20:12)
[2020-10-14 07:01] VITALS: BP 104/74
--- NOTE | 2020-10-14 07:02 | NUR ---
RECEIVED BEDSIDE REPORT FROM CARISA MUHAMMAD PT RESTING
[2020-10-14 07:08] LABS: UA EOSINOPHILS NO EOS /HPF
[2020-10-14] MEDS: K and/or MAG REPLACEMENT MC SCH ×2 (07:15→20:00)
[2020-10-14] MEDS: pantoprazole 40 MG vial IV SCH (07:29)
[2020-10-14] MEDS: LORazepam 1 MG tablet PO PRN ×2 (07:29→12:39)
[2020-10-14] MEDS: lactulose 20gm/30ml cup PO SCH ×3 (07:29→20:12)
[2020-10-14] MEDS: nicotine 7mg patch - 24hr TD SCH (07:29)
[2020-10-14] MEDS: thiamine 100mg tablet PO SCH (07:30)
[2020-10-14] MEDS: folic acid 1mg tablet PO SCH (07:30)
[2020-10-14] MEDS: multivitamins, therapeutics tablet PO SCH (07:30)
[2020-10-14 07:59] LABS: ALANINE AMINOTRANSFERASE 22 U/L (12-78); ALBUMIN 2.4 G/DL (3.4-5.0); ALKALINE PHOSPHATASE 159 IU/L (46-116); AMYLASE 32 U/L (25-115); ANION GAP 13 (8-16); ASPARTATE AMINO TRANSFERASE 56 U/L (10-37); BILIRUBIN,TOTAL 2.3 MG/DL (0.1-1.0); BLOOD UREA NITROGEN 35 MG/DL (7-18); BUN/CREATININE RATIO 19.3 (6.6-38.0); CALCIUM 7.6 MG/DL (8.5-10.1); CHLORIDE 109 MMOL/L (99-107); CREATININE 1.81 MG/DL (0.40-0.90); GLUCOSE 69 MG/DL (70-104); LIPASE 296 U/L (73-393); MAGNESIUM 1.8 MG/DL (1.5-2.4); PHOSPHORUS 2.6 MG/DL (2.3-4.5); SODIUM 137 MMOL/L (135-145); TOTAL CARBON DIOXIDE 15.2 MMOL/L (24-32); TOTAL PROTEIN 4.9 G/DL (6.4-8.2); eGFR 29 ML/MIN
[2020-10-14 08:48] LABS: HEMOGLOBIN 7.7 g/dl (12.0-16.0); MEAN CORPUSCULAR HEMOGLOBIN 32.6 PG (27.0-31.0); MEAN CORPUSCULAR HGB CONC 33.3 g/dL (33.0-36.5); MEAN CORPUSCULAR VOLUME 97.7 FL (78-98); MEAN PLATELET VOLUME 7.6 FL (7.4-10.4); RED BLOOD COUNT 2.35 X10'6 (4.20-5.60); RED CELL DISTRIBUTION WIDTH 17.3 % (11.5-14.5); WHITE BLOOD COUNT 1.5 X10'3 (4.5-11.0)
[2020-10-14 09:26] LABS: PLATELET COUNT 31 X10'3 (140-440)
--- NOTE | 2020-10-14 09:28 | NUR ---
PAGER ID: [phone] MESSAGE: [id number] PETRA DELA CRUZ PT PLT COUNT WAS 31, H&H 7.7 23.0 CEDRICK CONTRERAS RN
[2020-10-14 16:28] LABS: HEMATOCRIT 23.6 % (35.0-45.0); HEMOGLOBIN 7.8 g/dl (12.0-16.0); LYMPHOCYTES # (AUTO) 0.3 X10'3 (1.1-4.8); MEAN CORPUSCULAR HGB CONC 33.3 g/dL (33.0-36.5); MEAN PLATELET VOLUME 8.4 FL (7.4-10.4); MONOCYTES # (AUTO) 0.3 X10'3 (0-0.9); NEUTROPHILS # (AUTO) 0.9 X10'3 (1.8-7.7)
[2020-10-14 16:29] LABS: BASOPHILS % (AUTO) 0.7 % (0-1); EOSINOPHILS % (AUTO) 0.4 % (0-6); LYMPHOCYTES % (AUTO) 21.2 % (21-51); MEAN CORPUSCULAR HEMOGLOBIN 32.5 PG (27.0-31.0); MEAN CORPUSCULAR VOLUME 97.8 FL (78-98); MONOCYTES % (AUTO) 21.7 % (2-12); RED BLOOD COUNT 2.41 X10'6 (4.20-5.60); RED CELL DISTRIBUTION WIDTH 16.9 % (11.5-14.5); WHITE BLOOD COUNT 1.5 X10'3 (4.5-11.0)
[2020-10-14 16:32] LABS: PLATELET COUNT 31 X10'3 (140-440)
--- NOTE | 2020-10-14 17:00 | NUR ---
PAGER ID: [phone] MESSAGE: [id number] LANIE LAMBERT PLT 31
[2020-10-14 17:24] LABS: ANISOCYTOSIS 1+; PLATELET ESTIMATE DECREASED; POIKILOCYTOSIS FEW; TOTAL CELLS COUNTED 100
[2020-10-14 18:00] VITALS: BP 115/69
[2020-10-14] MEDS: pantoprazole 40mg Tablet.DR PO SCH (20:12)
[2020-10-14 22:00] VITALS: BP 109/66
[2020-10-15] MEDS: LORazepam 1 MG tablet PO PRN (05:36)
--- NOTE | 2020-10-15 06:10 | NUR ---
Patient in room ORTHO 4009. I have received report from Nichole and had the opportunity to ask questions and assume patient care.
--- NOTE | 2020-10-15 06:54 | NUR ---
Patient in room ORTHO 4009. I have received report from Kaylah MUHAMMAD and had the opportunity to ask questions and assume patient care.
[2020-10-15 07:50] LABS: HEMOGLOBIN 7.9 g/dl (12.0-16.0); LYMPHOCYTES # (AUTO) 0.5 X10'3 (1.1-4.8); MONOCYTES # (AUTO) 0.4 X10'3 (0-0.9); NEUTROPHILS # (AUTO) 1.4 X10'3 (1.8-7.7); RED CELL DISTRIBUTION WIDTH 17.5 % (11.5-14.5); WHITE BLOOD COUNT 2.3 X10'3 (4.5-11.0)
[2020-10-15 07:51] LABS: BASOPHILS % (AUTO) 0.7 % (0-1); EOSINOPHILS % (AUTO) 0.6 % (0-6); HEMATOCRIT 23.7 % (35.0-45.0); LYMPHOCYTES % (AUTO) 21.4 % (21-51); MEAN CORPUSCULAR HEMOGLOBIN 32.7 PG (27.0-31.0); MEAN CORPUSCULAR HGB CONC 33.2 g/dL (33.0-36.5); MEAN CORPUSCULAR VOLUME 98.4 FL (78-98); MONOCYTES % (AUTO) 17.9 % (2-12); NEUTROPHILS % (AUTO) 59.4 % (42-75); RED BLOOD COUNT 2.41 X10'6 (4.20-5.60)
[2020-10-15 07:57] LABS: PLATELET COUNT 36 X10'3 (140-440)
[2020-10-15 08:00] VITALS: BP 97/71
[2020-10-15] MEDS: K and/or MAG REPLACEMENT MC SCH ×2 (08:00→19:44)
[2020-10-15 08:06] LABS: ALANINE AMINOTRANSFERASE 23 U/L (12-78); ALBUMIN 2.4 G/DL (3.4-5.0); ALBUMIN/GLOBULIN RATIO 0.9 (1.1-1.5); ALKALINE PHOSPHATASE 173 IU/L (46-116); AMYLASE 39 U/L (25-115); ANION GAP 11 (8-16); ASPARTATE AMINO TRANSFERASE 59 U/L (10-37); BILIRUBIN,TOTAL 2.3 MG/DL (0.1-1.0); BLOOD UREA NITROGEN 25 MG/DL (7-18); CALCIUM 7.8 MG/DL (8.5-10.1); CHLORIDE 109 MMOL/L (99-107); CREATININE 1.47 MG/DL (0.40-0.90); GLUCOSE 76 MG/DL (70-104); LIPASE 419 U/L (73-393); MAGNESIUM 1.8 MG/DL (1.5-2.4); PHOSPHORUS 2.9 MG/DL (2.3-4.5); POTASSIUM 3.8 MMOL/L (3.5-5.1); SODIUM 137 MMOL/L (135-145); TOTAL CARBON DIOXIDE 17.4 MMOL/L (24-32); TOTAL PROTEIN 5.1 G/DL (6.4-8.2); eGFR 37 ML/MIN
[2020-10-15] MEDS: folic acid 1mg tablet PO SCH (09:43)
[2020-10-15] MEDS: pantoprazole 40mg Tablet.DR PO SCH ×2 (09:43→19:45)
[2020-10-15] MEDS: lactulose 20gm/30ml cup PO SCH ×3 (09:43→19:45)
[2020-10-15] MEDS: thiamine 100mg tablet PO SCH (09:47)
[2020-10-15] MEDS: multivitamins, therapeutics tablet PO SCH (09:47)
[2020-10-15] MEDS: nicotine 7mg patch - 24hr TD SCH (09:57)
[2020-10-15 10:00] VITALS: BP 101/68
[2020-10-15] MEDS: normal saline 1000ml 1,000 ML IV SCH ×2 (10:01→19:46)
--- NOTE | 2020-10-15 15:07 | NUR ---
Initial: Pt with hx ESLD admit with upper GIB and hepatic encephalopathy. Pt s/p EGD with findings of hemorrhagic gastritis secondary to portal hypertensive gastropathy per report. Pt s/p paracentesis 10/12 with 7L fluid removed. Wt likely to fluctuate d/t changes in fluid status. Pt with DTs per physician note, receiving routine Thiamine, Folic acid, and MVI. Pt on a 2 g Na restricted diet documented with 0-25% PO intake not meeting estimated nutrient needs. Pt seen at bedside reports improving appetite. Despite documentation of poor PO intake pt reports consuming pancakes, oatmeal, and eggs at breakfast and everything at lunch except for the chicken d/t disliking it. Food preferences obtained and d/w dietary, pt requests fruit with meals and orange juice. RD encouraged PO intake of meals with emphasis on protein, pt verbalized understanding. Pt denies protein rich food preferences at this time. Pt denies food allergies or difficulty chewing/swallowing and declines need for weighted utensils or texture modification. LBM 3, documented with diarrhea, likely r/t routine Lactulose. Pt provided with RD contact information and encouraged to reach out for any food preferences. Will continue to follow closely. Recommendations: 1) Continue 2 g Na restricted diet per physician 2) Fruit TID, orange juice BIDBL 3) Encourage PO intake; monitor need for ONS/additional protein 4) Continue routine Thiamine, Folic acid, and MVI for EtOH hx 5) Bowel care per rx 6) Scaled weights per rx Addendum: 10/15/20 at [address] Amended: Links added.
--- NOTE | 2020-10-15 16:47 | NUR ---
Student documentation: I have reviewed and agree with all interventions, assessments performed and documented by Geri DONATO.
--- NOTE | 2020-10-15 17:16 | NUR ---
Assume pt care, no change in condition.
--- NOTE | 2020-10-15 17:16 | NUR ---
Patient in room ORTHO 4009. I have received report from Mc MUHAMMAD and Geri DONATO and had the opportunity to ask questions and assume patient care.
--- NOTE | 2020-10-15 17:16 | NUR ---
Problems reprioritized. Patient report given Mirna/Trixie, questions answered & plan of care reviewed with .
[2020-10-15 18:00] VITALS: BP 112/79
--- NOTE | 2020-10-15 18:17 | NUR ---
Problems reprioritized. Patient report given, questions answered & plan of care reviewed with Myles MUHAMMAD.
[2020-10-15] MEDS: LORazepam 2 mg/ml vial IV PRN (19:45)
[2020-10-15 22:00] VITALS: BP 100/72
[2020-10-16 05:00] VITALS: BP 106/60
--- NOTE | 2020-10-16 06:59 | NUR ---
Patient in room ORTHO 4009. I have received report from JB Bueno and had the opportunity to ask questions and assume patient care.
--- NOTE | 2020-10-16 06:59 | NUR ---
Patient in room ORTHO 4009. I have received report from JB Bueno and had the opportunity to ask questions and assume patient care.
[2020-10-16] MEDS: multivitamins, therapeutics tablet PO SCH (07:59)
[2020-10-16] MEDS: pantoprazole 40mg Tablet.DR PO SCH ×2 (07:59→20:50)
[2020-10-16 08:00] VITALS: BP 106/60
[2020-10-16] MEDS: thiamine 100mg tablet PO SCH (08:00)
[2020-10-16] MEDS: K and/or MAG REPLACEMENT MC SCH ×2 (08:00→20:00)
[2020-10-16] MEDS: folic acid 1mg tablet PO SCH (08:00)
[2020-10-16] MEDS: lactulose 20gm/30ml cup PO SCH ×4 (08:00→20:50)
[2020-10-16] MEDS: LORazepam 2 mg/ml vial IV PRN ×2 (08:01→22:19)
[2020-10-16] MEDS: nicotine 7mg patch - 24hr TD SCH (08:03)
[2020-10-16 08:08] LABS: ALANINE AMINOTRANSFERASE 18 U/L (12-78); ALBUMIN 2.1 G/DL (3.4-5.0); ALBUMIN/GLOBULIN RATIO 0.9 (1.1-1.5); ALKALINE PHOSPHATASE 161 IU/L (46-116); ANION GAP 13 (8-16); ASPARTATE AMINO TRANSFERASE 54 U/L (10-37); BILIRUBIN,TOTAL 2.2 MG/DL (0.1-1.0); BLOOD UREA NITROGEN 20 MG/DL (7-18); BUN/CREATININE RATIO 17.5 (6.6-38.0); CALCIUM 7.7 MG/DL (8.5-10.1); CHLORIDE 110 MMOL/L (99-107); CREATININE 1.14 MG/DL (0.40-0.90); GLUCOSE 67 MG/DL (70-104); POTASSIUM 3.6 MMOL/L (3.5-5.1); SODIUM 138 MMOL/L (135-145); TOTAL PROTEIN 4.5 G/DL (6.4-8.2); eGFR 49 ML/MIN
[2020-10-16 08:15] LABS: HEMATOCRIT 22.9 % (35.0-45.0); HEMOGLOBIN 7.5 g/dl (12.0-16.0); LYMPHOCYTES # (AUTO) 0.4 X10'3 (1.1-4.8); MONOCYTES # (AUTO) 0.4 X10'3 (0-0.9)
[2020-10-16 08:17] LABS: BASOPHILS % (AUTO) 0.3 % (0-1); EOSINOPHILS % (AUTO) 1.2 % (0-6); LYMPHOCYTES % (AUTO) 20.2 % (21-51); MEAN CORPUSCULAR HEMOGLOBIN 32.7 PG (27.0-31.0); MEAN CORPUSCULAR HGB CONC 32.7 g/dL (33.0-36.5); MEAN CORPUSCULAR VOLUME 100.1 FL (78-98); MONOCYTES % (AUTO) 22.3 % (2-12); RED BLOOD COUNT 2.29 X10'6 (4.20-5.60); RED CELL DISTRIBUTION WIDTH 17.8 % (11.5-14.5); WHITE BLOOD COUNT 1.8 X10'3 (4.5-11.0)
--- NOTE | 2020-10-16 08:28 | NUR ---
PAGER ID: [phone] MESSAGE: [id number] Justine Deng critical CO2 of 15.0. Previous was 17.4, 15.2, 17.1, 15.3, 17.5. -JB Dodge 1985
[2020-10-16 08:57] LABS: PLATELET COUNT 34 X10'3 (140-440)
--- NOTE | 2020-10-16 09:02 | NUR ---
PAGER ID: [phone] MESSAGE: [id number], Ayah Deng critical platelet of 34. Previous was 31, 34, 31, 31, 36 -SN Dar
[2020-10-16 11:00] VITALS: BP 98/63
[2020-10-16] MEDS: normal saline 1000ml 1,000 ML IV SCH (11:28)
[2020-10-16 11:31] LABS: TOTAL CELLS COUNTED 100
[2020-10-16 11:33] LABS: ANISOCYTOSIS 1+; PLATELET ESTIMATE DECREASED; TEAR DROP CELLS FEW
--- NOTE | 2020-10-16 12:04 | NUR ---
Dr. Melo in to see patient.
[2020-10-16 18:00] VITALS: BP 122/81
--- NOTE | 2020-10-16 18:03 | NUR ---
Student documentation: I have reviewed and agree with all interventions, assessments performed and documented by SN Dar. Student Medication Administration: For this medication-pass time frame, all medication were reviewed, dispensed, administered and documented per hospital policy by SN Dar.
--- NOTE | 2020-10-16 18:20 | NUR ---
Problems reprioritized. Patient report given, questions answered & plan of care reviewed with JB Jones.
--- NOTE | 2020-10-16 18:21 | NUR ---
Problems reprioritized. Patient report given, questions answered & plan of care reviewed with JB Jones.
--- NOTE | 2020-10-16 18:30 | NUR ---
Patient in room ORTHO 4009. I have received report from petrona uHrtado and had the opportunity to ask questions and assume patient care.
[2020-10-16 22:00] VITALS: BP 109/75
--- NOTE | 2020-10-16 23:15 | NUR ---
MESSAGE: [id number] Ayah Deng 55, here for Hepatic Encephalopathy on lactulose, having bm too often that prevents her from sleeping. Can she have rectal tube? thank you. #[phone] Karen
[2020-10-17] MEDS: normal saline 1000ml 1,000 ML IV SCH (00:02)
--- NOTE | 2020-10-17 06:20 | NUR ---
Problems reprioritized. Patient report given, questions answered & plan of care reviewed with JB VARNER.
[2020-10-17 06:30] VITALS: BP 96/72
[2020-10-17] MEDS: lactulose 20gm/30ml cup PO SCH ×4 (07:35→20:50)
[2020-10-17] MEDS: pantoprazole 40mg Tablet.DR PO SCH ×2 (07:35→19:21)
[2020-10-17] MEDS: thiamine 100mg tablet PO SCH (07:35)
[2020-10-17] MEDS: multivitamins, therapeutics tablet PO SCH (07:35)
[2020-10-17] MEDS: folic acid 1mg tablet PO SCH (07:35)
[2020-10-17] MEDS: nicotine 7mg patch - 24hr TD SCH ×3 (07:36→10:05)
[2020-10-17 07:48] LABS: HEMATOCRIT 22.8 % (35.0-45.0); HEMOGLOBIN 7.5 g/dl (12.0-16.0); MEAN CORPUSCULAR HEMOGLOBIN 32.7 PG (27.0-31.0); MEAN CORPUSCULAR HGB CONC 32.7 g/dL (33.0-36.5); MEAN PLATELET VOLUME 8.6 FL (7.4-10.4); RED BLOOD COUNT 2.28 X10'6 (4.20-5.60); WHITE BLOOD COUNT 1.6 X10'3 (4.5-11.0)
[2020-10-17] MEDS: LORazepam 2 mg/ml vial IV PRN (07:57)
[2020-10-17 08:02] LABS: PLATELET COUNT 40 X10'3 (140-440)
[2020-10-17 08:06] LABS: ALANINE AMINOTRANSFERASE 20 U/L (12-78); ALBUMIN/GLOBULIN RATIO 0.8 (1.1-1.5); ALKALINE PHOSPHATASE 157 IU/L (46-116); ANION GAP 13 (8-16); ASPARTATE AMINO TRANSFERASE 55 U/L (10-37); BILIRUBIN,TOTAL 2.1 MG/DL (0.1-1.0); BLOOD UREA NITROGEN 16 MG/DL (7-18); BUN/CREATININE RATIO 14.3 (6.6-38.0); CALCIUM 7.6 MG/DL (8.5-10.1); CHLORIDE 112 MMOL/L (99-107); CREATININE 1.12 MG/DL (0.40-0.90); GLUCOSE 72 MG/DL (70-104); POTASSIUM 3.1 MMOL/L (3.5-5.1); SODIUM 140 MMOL/L (135-145); TOTAL CARBON DIOXIDE 15.4 MMOL/L (24-32); TOTAL PROTEIN 4.6 G/DL (6.4-8.2); eGFR 51 ML/MIN
[2020-10-17] MEDS: K and/or MAG REPLACEMENT MC SCH ×2 (08:33→19:32)
--- NOTE | 2020-10-17 08:37 | NUR ---
Notified Dr Melo about [id number] Miss Walters's AM platelet count 40.
[2020-10-17 10:13] LABS: ANISOCYTOSIS 1+; PLATELET ESTIMATE DECREASED; TOTAL CELLS COUNTED 100
[2020-10-17 10:14] LABS: SCHISTOCYTES 1+
--- NOTE | 2020-10-17 10:51 | NUR ---
Notified Dr Alvarado Miss Walters's daughter is requesting information about her mother about her plan of care #[phone].
[2020-10-17] MEDS: sodium bicarbonate (8.4%) inj. 150 MEQ in sodium chloride 0.45% 1,000 ML IV SCH ×2 (11:15→21:11)
[2020-10-17 12:06] VITALS: BP 101/71
--- NOTE | 2020-10-17 17:09 | NUR ---
Notified Dr Alvarado about patient tongue being beefy red and swollen. Dr came to bedside to see patient stated that her oral mucosa is dry ordered pt have glycerin swabs and ice chips at bedside for oral care. Will continue to monitor
--- NOTE | 2020-10-17 18:30 | NUR ---
Patient in room ORTHO 4009. I have received report from JB VARNER and had the opportunity to ask questions and assume patient care.
--- NOTE | 2020-10-17 18:30 | NUR ---
MESSAGE: [phone] PETRA DELA CRUZ 55 HERE FOR HEPTIC ENCEPHALOPATHY. POTTASIUM IS 3.1 TODAY. SHOULD SHE BE ON PROTOCOL? THANK YOU. #[phone] MISAEL
[2020-10-17] MEDS ORDERED: magnesium 4gm in 100ml NS 100 ML IV PRN (18:35)
[2020-10-17] MEDS ORDERED: potassium Cl 20 mEq SR tablet PO PRN (18:35)
[2020-10-17] MEDS ORDERED: magnesium Cl slow-release 64mg tablet PO PRN (18:35)
[2020-10-17] MEDS ORDERED: potassium Cl 40MEQ/1/2NS 520ml 520 ML IV PRN (18:35)
[2020-10-17] MEDS: potassium Cl 20 mEq SR tablet PO PRN (19:21)
[2020-10-17] MEDS: rifaximin 550mg tablet PO SCH (19:21)
[2020-10-17 21:43] VITALS: BP 115/71
--- NOTE | 2020-10-17 22:02 | NUR ---
MESSAGE: [phone] PETRA DELA CRUZ 55 HERE FOR HEPATIC ENCEPHALOPATHY. C/O BOTTOM PAIN. NO PAIN MEDS ORDERED. CAN SHE HAVE SOMETHING FOR PAIN? THANK YOU. [phone] MISAEL
[2020-10-17] MEDS ORDERED: morphine 2 MG/ML inj. syringe IV PRN ×2 (22:10)
[2020-10-18] MEDS: potassium Cl 20 mEq SR tablet PO PRN ×3 (05:20→19:03)
[2020-10-18 06:00] VITALS: BP 107/65
--- NOTE | 2020-10-18 06:43 | NUR ---
Problems reprioritized. Patient report given, questions answered & plan of care reviewed with JB MALAVE.
--- NOTE | 2020-10-18 07:00 | NUR ---
Patient in room ORTHO 4009. I have received report from Karen MUHAMMAD and had the opportunity to ask questions and assume patient care.
[2020-10-18 07:48] LABS: BASOPHILS % (AUTO) 0.7 % (0-1); EOSINOPHILS % (AUTO) 0.8 % (0-6); HEMATOCRIT 22.3 % (35.0-45.0); HEMOGLOBIN 7.3 g/dl (12.0-16.0); LYMPHOCYTES # (AUTO) 0.4 X10'3 (1.1-4.8); LYMPHOCYTES % (AUTO) 29.1 % (21-51); MEAN CORPUSCULAR HEMOGLOBIN 32.6 PG (27.0-31.0); MEAN CORPUSCULAR HGB CONC 32.9 g/dL (33.0-36.5); MEAN PLATELET VOLUME 7.9 FL (7.4-10.4); MONOCYTES # (AUTO) 0.4 X10'3 (0-0.9); MONOCYTES % (AUTO) 28.5 % (2-12); NEUTROPHILS # (AUTO) 0.6 X10'3 (1.8-7.7); NEUTROPHILS % (AUTO) 40.9 % (42-75); RED BLOOD COUNT 2.25 X10'6 (4.20-5.60); RED CELL DISTRIBUTION WIDTH 18.3 % (11.5-14.5); WHITE BLOOD COUNT 1.3 X10'3 (4.5-11.0)
[2020-10-18 07:59] LABS: PLATELET COUNT 48 X10'3 (140-440)
[2020-10-18] MEDS: K and/or MAG REPLACEMENT MC SCH ×2 (08:00→19:22)
--- NOTE | 2020-10-18 08:07 | NUR ---
PAGER ID: [phone] MESSAGE: RE: Ayah Walters, Room 400 Critical platelets 48. Orders? thank you, Ingrid Ortho/Neuro x [phone] Pt stable, Will continue to monitor.
[2020-10-18] MEDS: folic acid 1mg tablet PO SCH (08:10)
[2020-10-18] MEDS: rifaximin 550mg tablet PO SCH ×2 (08:10→19:19)
[2020-10-18] MEDS: multivitamins, therapeutics tablet PO SCH (08:10)
[2020-10-18] MEDS: pantoprazole 40mg Tablet.DR PO SCH ×2 (08:10→19:19)
[2020-10-18] MEDS: thiamine 100mg tablet PO SCH (08:10)
[2020-10-18] MEDS: lactulose 20gm/30ml cup PO SCH ×3 (08:12→21:22)
[2020-10-18 08:37] LABS: ALANINE AMINOTRANSFERASE 20 U/L (12-78); ALBUMIN/GLOBULIN RATIO 0.7 (1.1-1.5); ALKALINE PHOSPHATASE 153 IU/L (46-116); ANION GAP 11 (8-16); ASPARTATE AMINO TRANSFERASE 53 U/L (10-37); BILIRUBIN,TOTAL 2.1 MG/DL (0.1-1.0); BLOOD UREA NITROGEN 15 MG/DL (7-18); BUN/CREATININE RATIO 12.1 (6.6-38.0); CALCIUM 7.7 MG/DL (8.5-10.1); CHLORIDE 113 MMOL/L (99-107); CREATININE 1.24 MG/DL (0.40-0.90); GLUCOSE 68 MG/DL (70-104); MAGNESIUM 1.7 MG/DL (1.5-2.4); POTASSIUM 3.1 MMOL/L (3.5-5.1); SODIUM 142 MMOL/L (135-145); TOTAL CARBON DIOXIDE 17.8 MMOL/L (24-32); TOTAL PROTEIN 4.7 G/DL (6.4-8.2); eGFR 45 ML/MIN
[2020-10-18 08:59] LABS: ANISOCYTOSIS 2+; PLATELET ESTIMATE DECREASED; TOTAL CELLS COUNTED 100
[2020-10-18] MEDS: sodium bicarbonate (8.4%) inj. 150 MEQ in sodium chloride 0.45% 1,000 ML IV SCH ×2 (10:39→21:35)
[2020-10-18 11:00] VITALS: BP 102/72
--- NOTE | 2020-10-18 12:59 | NUR ---
Fu 10/18: PO intake average 30% of regular diet, is not meeting estimated nutrition needs. RD event marketing intern met with pt at bedside for additional food preferences. Pt agreeable to Ensure Enlive TIDWM, pending MD approval in EMR. Pt reports of tongue swelling, per MD note. Pending METAL BUILDINGS ASSEMBLER BSS. Last BM 10/17 with noted diarrhea, receiving routine lactulose. Will continue to monitor closely. Recommendations: 1) Continue 2 g Na restricted diet per physician. Textured mods per METAL BUILDINGS ASSEMBLER recs. 2) Fruit TID, orange juice BIDBL 3) Eminence Ensure Enlive TIDWM, pending MD approval in EMR 4) Continue routine Thiamine, Folic acid, and MVI for EtOH hx 5) Bowel care per rx 6) Scaled weight this admit Addendum: 10/18/20 at [address] Amended: Links added. Addendum: 10/18/20 at [address] I have reviewed and agree with note by Transportation Operations Manager. Ashley Johnson, DAVID
--- NOTE | 2020-10-18 17:46 | NUR ---
phone call from patient's boyfriend, update given with pt's permission.
[2020-10-18 18:00] VITALS: BP 109/73
--- NOTE | 2020-10-18 18:25 | NUR ---
Patient in room ORTHO 4009. I have received report from JB MALAVE and had the opportunity to ask questions and assume patient care.
--- NOTE | 2020-10-18 18:25 | NUR ---
Problems reprioritized. Patient report given, questions answered & plan of care reviewed with Karen MUHAMMAD.
[2020-10-18] MEDS: lactobacillus rhamnosus 10,000 MMU CELLS/CAPSULE PO SCH (19:19)
[2020-10-18 22:00] VITALS: BP 97/69
[2020-10-18 22:15] LABS: NUCLEATED RED BLOOD CELLS 0 /100WBC (0-0)
--- NOTE | 2020-10-18 22:15 | NUR ---
LAB CALLED TO LET KNOW THAT VALUE FOR NUCLEATED RBC FROM THIS MORNING WAS NOT RIGHT. CORRECT VALUE IS ZERO, NOT 190.
[2020-10-19] MEDS: LORazepam 2 mg/ml vial IV PRN ×2 (01:00→14:36)
[2020-10-19] MEDS: potassium Cl 20 mEq SR tablet PO PRN (01:00)
[2020-10-19 01:48] VITALS: BP 104/72
--- NOTE | 2020-10-19 06:47 | NUR ---
Problems reprioritized. Patient report given, questions answered & plan of care reviewed with JB SANCHEZ.
[2020-10-19 07:00] VITALS: BP 92/66
[2020-10-19] MEDS: sodium bicarbonate (8.4%) inj. 150 MEQ in sodium chloride 0.45% 1,000 ML IV SCH ×3 (07:00→23:35)
[2020-10-19] MEDS: rifaximin 550mg tablet PO SCH ×2 (07:36→20:04)
[2020-10-19] MEDS: folic acid 1mg tablet PO SCH (07:37)
[2020-10-19] MEDS: pantoprazole 40mg Tablet.DR PO SCH ×2 (07:37→20:03)
[2020-10-19] MEDS: lactobacillus rhamnosus 10,000 MMU CELLS/CAPSULE PO SCH ×2 (07:37→20:03)
[2020-10-19] MEDS: thiamine 100mg tablet PO SCH (07:37)
[2020-10-19] MEDS: multivitamins, therapeutics tablet PO SCH (07:37)
[2020-10-19] MEDS: lactulose 20gm/30ml cup PO SCH ×3 (07:40→20:04)
[2020-10-19] MEDS: nicotine 7mg patch - 24hr TD SCH (07:44)
[2020-10-19] MEDS: K and/or MAG REPLACEMENT MC SCH ×2 (08:00→20:00)
[2020-10-19 08:36] LABS: BASOPHILS % (AUTO) 0.8 % (0-1); EOSINOPHILS % (AUTO) 0.7 % (0-6); HEMATOCRIT 24.8 % (35.0-45.0); HEMOGLOBIN 8.1 g/dl (12.0-16.0); LYMPHOCYTES # (AUTO) 0.5 X10'3 (1.1-4.8); MEAN CORPUSCULAR HEMOGLOBIN 32.3 PG (27.0-31.0); MEAN CORPUSCULAR HGB CONC 32.7 g/dL (33.0-36.5); MEAN CORPUSCULAR VOLUME 98.8 FL (78-98); MEAN PLATELET VOLUME 8.4 FL (7.4-10.4); MONOCYTES # (AUTO) 0.4 X10'3 (0-0.9); MONOCYTES % (AUTO) 22.9 % (2-12); NEUTROPHILS # (AUTO) 0.7 X10'3 (1.8-7.7); NEUTROPHILS % (AUTO) 46.6 % (42-75); PLATELET COUNT 60 X10'3 (140-440); RED BLOOD COUNT 2.51 X10'6 (4.20-5.60); RED CELL DISTRIBUTION WIDTH 18.4 % (11.5-14.5); WHITE BLOOD COUNT 1.6 X10'3 (4.5-11.0)
[2020-10-19 08:55] LABS: ALANINE AMINOTRANSFERASE 20 U/L (12-78); ALBUMIN 2.1 G/DL (3.4-5.0); ALBUMIN/GLOBULIN RATIO 0.7 (1.1-1.5); ALKALINE PHOSPHATASE 158 IU/L (46-116); ANION GAP 7 (8-16); ASPARTATE AMINO TRANSFERASE 61 U/L (10-37); BILIRUBIN,TOTAL 2.3 MG/DL (0.1-1.0); BLOOD UREA NITROGEN 15 MG/DL (7-18); BUN/CREATININE RATIO 12.5 (6.6-38.0); CALCIUM 7.7 MG/DL (8.5-10.1); CHLORIDE 110 MMOL/L (99-107); GLUCOSE 71 MG/DL (70-104); MAGNESIUM 1.7 MG/DL (1.5-2.4); POTASSIUM 3.5 MMOL/L (3.5-5.1); SODIUM 141 MMOL/L (135-145); TOTAL CARBON DIOXIDE 23.8 MMOL/L (24-32); eGFR 47 ML/MIN
[2020-10-19 09:28] LABS: ANISOCYTOSIS 2+; PLATELET ESTIMATE DECREASED; TOTAL CELLS COUNTED 100
[2020-10-19 09:29] LABS: HYPOCHROMASIA 1+
[2020-10-19 11:09] VITALS: BP 94/64
[2020-10-19] MEDS: naltrexone 50mg tablet PO SCH (12:48)
--- NOTE | 2020-10-19 13:00 | NUR ---
patient c/o rectal tube stating it was very uncomfortable draining medium brown stool liquid, leaking around site repositioned, will continue to monitor
--- NOTE | 2020-10-19 14:00 | NUR ---
patient up to [facility] rectal tube fell out Dr Blanco paged ok to leave out tube. Ambulated with PT see note.
[2020-10-19 18:00] VITALS: BP 103/73
--- NOTE | 2020-10-19 18:44 | NUR ---
Problems reprioritized. Patient report given, questions answered & plan of care reviewed with Nicol MUHAMMAD.
[2020-10-19 22:00] VITALS: BP 98/74
[2020-10-20 06:00] VITALS: BP 99/67
--- NOTE | 2020-10-20 06:45 | NUR ---
Patient in room ORTHO 4009A. I have received report from JB MACDONALD and had the opportunity to ask questions and assume patient care.
[2020-10-20] MEDS: lactobacillus rhamnosus 10,000 MMU CELLS/CAPSULE PO SCH (08:00)
[2020-10-20] MEDS: naltrexone 50mg tablet PO SCH ×2 (08:00→11:15)
[2020-10-20] MEDS: nicotine 7mg patch - 24hr TD SCH (08:00)
[2020-10-20 08:11] LABS: BASOPHILS % (AUTO) 0.8 % (0-1); EOSINOPHILS % (AUTO) 0.6 % (0-6); HEMATOCRIT 27.4 % (35.0-45.0); HEMOGLOBIN 9.1 g/dl (12.0-16.0); LYMPHOCYTES # (AUTO) 0.7 X10'3 (1.1-4.8); LYMPHOCYTES % (AUTO) 25.9 % (21-51); MEAN CORPUSCULAR HEMOGLOBIN 32.4 PG (27.0-31.0); MEAN CORPUSCULAR HGB CONC 33.1 g/dL (33.0-36.5); MEAN CORPUSCULAR VOLUME 97.7 FL (78-98); MEAN PLATELET VOLUME 8.3 FL (7.4-10.4); MONOCYTES # (AUTO) 0.4 X10'3 (0-0.9); MONOCYTES % (AUTO) 15.2 % (2-12); NEUTROPHILS # (AUTO) 1.5 X10'3 (1.8-7.7); NEUTROPHILS % (AUTO) 57.5 % (42-75); PLATELET COUNT 75 X10'3 (140-440); RED BLOOD COUNT 2.81 X10'6 (4.20-5.60); RED CELL DISTRIBUTION WIDTH 17.4 % (11.5-14.5); WHITE BLOOD COUNT 2.6 X10'3 (4.5-11.0)
[2020-10-20] MEDS: folic acid 1mg tablet PO SCH (08:16)
[2020-10-20] MEDS: rifaximin 550mg tablet PO SCH (08:16)
[2020-10-20] MEDS: lactulose 20gm/30ml cup PO SCH (08:16)
[2020-10-20] MEDS: thiamine 100mg tablet PO SCH (08:16)
[2020-10-20] MEDS: multivitamins, therapeutics tablet PO SCH (08:16)
[2020-10-20] MEDS: pantoprazole 40mg Tablet.DR PO SCH (08:18)
[2020-10-20 08:32] LABS: ALANINE AMINOTRANSFERASE 25 U/L (12-78); ALBUMIN 2.3 G/DL (3.4-5.0); ALBUMIN/GLOBULIN RATIO 0.7 (1.1-1.5); ALKALINE PHOSPHATASE 175 IU/L (46-116); ANION GAP 9 (8-16); ASPARTATE AMINO TRANSFERASE 67 U/L (10-37); BLOOD UREA NITROGEN 14 MG/DL (7-18); CALCIUM 7.8 MG/DL (8.5-10.1); CHLORIDE 104 MMOL/L (99-107); CREATININE 1.27 MG/DL (0.40-0.90); GLUCOSE 74 MG/DL (70-104); MAGNESIUM 1.6 MG/DL (1.5-2.4); SODIUM 139 MMOL/L (135-145); TOTAL CARBON DIOXIDE 26.2 MMOL/L (24-32); TOTAL PROTEIN 5.5 G/DL (6.4-8.2); eGFR 44 ML/MIN
[2020-10-20 08:35] LABS: POTASSIUM 2.9 MMOL/L (3.5-5.1)
--- NOTE | 2020-10-20 08:38 | NUR ---
CRITICAL POTASSIUM 2.9, DR BENTON, AWAITING CALL BACK, WILL REPLACE PER PROTOCOL
[2020-10-20 08:59] LABS: TOTAL CELLS COUNTED 100
[2020-10-20 09:00] LABS: PLATELET ESTIMATE DECREASED
[2020-10-20 09:01] LABS: ANISOCYTOSIS 1+; HYPOCHROMASIA 1+; SCHISTOCYTES FEW; TEAR DROP CELLS FEW; TOXIC GRANULATION 2+
[2020-10-20 10:00] VITALS: BP 105/71
--- NOTE | 2020-10-20 11:15 | NUR ---
Chris Consult: Chris 12; skin intact per EMR. Pt PO remains poor declining further to 0-25% avg MM5/thin/Na-restricted diet per SCIENTIST/ENGINEER/MD recs; not meeting needs. Pt seen by DAVID reports lower intake at this time but not low appetite; is agreeable to arpita crouch TIDWM, likes mashed potatoes, and requests cup of ice TIDWM. RD assisted pt in filling out menu and diet technician registered to see pt daily to review menu preferences. Per pt; drinks strawberry boost at home TID and is agreeable to ensure enlive strawberry TIDWM; unfortunately still pending MD verification in EMR at this time so unable to send. Pt also reports lactose intolerance; dietary already aware. Daily diarrhea noted receiving lactulose TID and rectal tube fell out w/ 700-1100ml stool prior per EMR. Ammonia 33 today down from 51 prior. Receiving thiamin, folic, MVI for etoh hx. Will continue to monitor for additional protein/kcal needs. Recommendations: 1) Continue Na-restricted/MM5/thin diet per SCIENTIST/ENGINEER/MD; encourage PO 2) honor pt food preferences; see subjective 3) Hammond Ensure Enlive TIDWM, pending MD verification in EMR 4) Continue routine Thiamine, Folic acid, and MVI for EtOH hx 5) Bowel care per rx; lactulose TID per MD 6) Scaled weight this admit w/ weekly wts following Addendum: 10/20/20 at [address] Amended: Links added.
--- NOTE | 2020-10-20 12:45 | NUR ---
Patient in room ORTHO 4009. I have received report from Trixie MUHAMMAD and had the opportunity to ask questions and assume patient care.
[2020-10-20] MEDS ORDERED: POTASSIUM BICARB 20meq eff tab 20 MEQ TABLET.EFF PO PRN ×2 (12:50→12:51)
[2020-10-20] MEDS ORDERED: NALT50TA PO (15:04)
[2020-10-20] MEDS ORDERED: RIFA550T PO (15:04)
[2020-10-20] MEDS ORDERED: thiamine tablet PO (15:04)
[2020-10-20] MEDS ORDERED: MULT-25 PO (15:04)
[2020-10-20] MEDS ORDERED: LACT10SO7 PO (15:04)
[2020-10-20] MEDS ORDERED: LORA-269 PO (15:04)
[2020-10-20] MEDS ORDERED: NICO-630 TD (15:04)
[2020-10-20] MEDS ORDERED: folic acid tablet PO (15:04)
[2020-10-20] MEDS ORDERED: PANT-47 PO (18:49)
--- NOTE | 2020-10-20 19:23 | NUR ---
PATIENT STABLE AND APPROPRIATE FOR DISCHARGE, IV TAKEN OUT, TELE REMOVED, NEW MEDS E-SCRIPTED TO PREFERRED PHARMACY AND SCRIPTS GIVEN TO PATIENT, EDUCATION GIVEN, ALL BELONGINGS SENT WITH PATIENT, PATIENT TAKEN TO LOBBY BY WHEELCHAIR TO AN AWAITING CAR WHERE FAMILY MEMBER WILL TAKE PATIENT HOME
== END 2020-10-20 16:42 | disposition home or self-care (01) | DRG 432 ==
LOC: ER 06:47 → ED HOLD 11:07 → ORTHO 4S 13:45
PROVIDERS: ADMIT Family Medicine; ATTEND Family Medicine
PROC: 0W3P8ZZ Control Bleeding in Gastrointestinal Tract, Via Natural or Artificial Opening Endoscopic (ICD-10-PCS; principal; 2020-10-11)
PROC: 30233N1 Transfusion of Nonautologous Red Blood Cells into Peripheral Vein, Percutaneous Approach (ICD-10-PCS; 2020-10-11)
PROC: 0W9G3ZZ Drainage of Peritoneal Cavity, Percutaneous Approach (ICD-10-PCS; 2020-10-12)
DX: K70.40 Alcoholic hepatic failure without coma (principal); K29.71 Gastritis, unspecified, with bleeding; G93.41 Metabolic encephalopathy; K76.7 Hepatorenal syndrome; K85.90 Acute pancreatitis without necrosis or infection, unspecified; K76.6 Portal hypertension; D61.818 Other pancytopenia; D68.9 Coagulation defect, unspecified; E87.1 Hypo-osmolality and hyponatremia; N17.9 Acute kidney failure, unspecified; K86.1 Other chronic pancreatitis; K70.31 Alcoholic cirrhosis of liver with ascites; F10.129 Alcohol abuse with intoxication, unspecified; D69.59 Other secondary thrombocytopenia; N18.30 Chronic kidney disease, stage 3 unspecified; F17.210 Nicotine dependence, cigarettes, uncomplicated; F32.9 Major depressive disorder, single episode, unspecified; I95.89 Other hypotension; K21.9 Gastro-esophageal reflux disease without esophagitis; J44.9 Chronic obstructive pulmonary disease, unspecified; K31.89 Other diseases of stomach and duodenum; Z91.19 Patient's noncompliance with other medical treatment and regimen; Z79.899 Other long term (current) drug therapy
CPT/HCPCS: 36415; 36430; 43227; 43255; 49083; 70544; 70551; 76775; 80053; 80305; 80320; 81001; 82140; 82150; 82570; 82948; 83690; 83735; 84100; 84156; 84300; 85007; 85025; 85027; 85384; 85610; 85730; 86885; 86900; 86901; 86920; 87081; 87088; 87207; 92508; 92616; 96365; 97110; 97116; 97162; 97530; 97535; 99152; 99285; A4620; C9113; G0378; J1200; J2060; J2250; J2270; J2354; J2405; J3010; J3411; J7030; J7040; J7050; P9016; P9047

== ENCOUNTER 2020-10-25 06:27 | Day surgery (SDC) | payer BC ==
[~2020-10-25] VITALS: Ht 165.1 cm; Wt 83.1 kg
[2020-10-25] VITALS (7 sets, daily range): BP systolic 100–110; BP diastolic 62–74
[~2020-10-25 06:27] MED LIST changes: +ESCI-8 PO; -ESCI10TA PO; +HYDR50TA65 PO; +LORA-269 PO; +MULT-25 PO; +NALT50TA PO; +NICO-630 TD; +PANT-47 PO; +RIFA550T PO; +folic acid tablet PO; +thiamine tablet PO
[2020-10-25] MEDS ORDERED: albumin 25% 100mL bottle x 1 IV PRN (06:50)
[2020-10-25] MEDS ORDERED: LACT10SO67 (07:07)
== END 2020-10-25 09:50 | disposition home or self-care (01) ==
LOC: SSTAY O 06:27
PROVIDERS: ATTEND Radiology Diagnostic Radiology
DX: K70.31 Alcoholic cirrhosis of liver with ascites (principal); E87.6 Hypokalemia; K21.9 Gastro-esophageal reflux disease without esophagitis; F10.10 Alcohol abuse, uncomplicated; I12.0 Hypertensive chronic kidney disease with stage 5 chronic kidney disease or end stage renal disease; N18.6 End stage renal disease; K72.90 Hepatic failure, unspecified without coma; D69.6 Thrombocytopenia, unspecified; Z87.19 Personal history of other diseases of the digestive system; Z79.899 Other long term (current) drug therapy
CPT/HCPCS: 49083; P9047

== ENCOUNTER 2020-11-03 08:04 | Day surgery (SDC) | payer BC ==
[2020-11-03] VITALS (10 sets, daily range): BP systolic 94–104; BP diastolic 60–73
[~2020-11-03] VITALS: Ht 165.1 cm; Wt 77.6 kg
[~2020-11-03 08:04] MED LIST changes: -HYDR50TA65 PO; +LACT10SO67; -LACT10SO7 PO; -LORA-269 PO; -MULT-25 PO; -NALT50TA PO; -NICO-630 TD; -PANT-47 PO; -RIFA550T PO; -folic acid tablet PO; -thiamine tablet PO
[2020-11-03] MEDS: albumin 25% 100mL bottle x 1 IV PRN ×2 (09:38→10:19)
== END 2020-11-03 11:35 | disposition home or self-care (01) ==
LOC: SSTAY O 08:04
PROVIDERS: ATTEND Radiology Diagnostic Radiology
DX: K70.31 Alcoholic cirrhosis of liver with ascites (principal); F10.10 Alcohol abuse, uncomplicated; E87.6 Hypokalemia; K21.9 Gastro-esophageal reflux disease without esophagitis; N18.6 End stage renal disease; K72.90 Hepatic failure, unspecified without coma; D69.6 Thrombocytopenia, unspecified; Z87.19 Personal history of other diseases of the digestive system; Z79.899 Other long term (current) drug therapy
CPT/HCPCS: 49083; P9047

== ENCOUNTER 2020-11-10 06:23 | Day surgery (SDC) | payer BC ==
[2020-11-10] VITALS (9 sets, daily range): BP systolic 96–104; BP diastolic 42–69
[~2020-11-10] VITALS: Ht 165.1 cm; Wt 73.9 kg
[2020-11-10] MEDS ORDERED: LIDOcaine 1% (10mg/ml) 2ml vial ONE (06:42)
[2020-11-10] MEDS ORDERED: normal saline 1000ml 1,000 ML IV PRN (06:45)
[2020-11-10] MEDS: albumin 25% 100mL bottle x 1 IV PRN ×2 (08:18→09:17)
== END 2020-11-10 10:19 | disposition home or self-care (01) ==
LOC: SSTAY O 06:23
PROVIDERS: ATTEND Radiology Vascular & Interventional Radiology
DX: R18.8 Other ascites (principal); K74.60 Unspecified cirrhosis of liver; K21.9 Gastro-esophageal reflux disease without esophagitis; N18.6 End stage renal disease; Z98.890 Other specified postprocedural states; Z79.899 Other long term (current) drug therapy
CPT/HCPCS: 49083; J2001; P9047

== ENCOUNTER 2020-11-17 07:19 | Day surgery (SDC) | payer BC ==
[~2020-11-17] VITALS: Ht 165.1 cm; Wt 71.4 kg
[2020-11-17] VITALS (9 sets, daily range): BP systolic 101–116; BP diastolic 67–74
[2020-11-17] MEDS ORDERED: FLU VACC QS2020-21(6MOS UP)/PF 60 MCG/0.5 ML SYRINGE IMVAC ONE (10:00)
[2020-11-17] MEDS: albumin 25% 100mL bottle x 1 IV PRN ×2 (10:18→10:19)
== END 2020-11-17 12:00 | disposition home or self-care (01) ==
LOC: SSTAY O 07:19
PROVIDERS: ATTEND Radiology Vascular & Interventional Radiology
DX: K70.31 Alcoholic cirrhosis of liver with ascites (principal); E87.6 Hypokalemia; K21.9 Gastro-esophageal reflux disease without esophagitis; D69.6 Thrombocytopenia, unspecified; N18.6 End stage renal disease; K72.90 Hepatic failure, unspecified without coma; F10.20 Alcohol dependence, uncomplicated; Z79.899 Other long term (current) drug therapy
CPT/HCPCS: 49083; P9047

== ENCOUNTER 2020-11-24 06:46 | Day surgery (SDC) | payer BC ==
[~2020-11-24] VITALS: Ht 165.1 cm; Wt 68.9 kg
[2020-11-24] VITALS (9 sets, daily range): BP systolic 89–106; BP diastolic 40–68
[~2020-11-24 06:46] MED LIST changes: -ESCI-8 PO; -FURO20TA4 PO; -SPIR100T5 PO
[2020-11-24] MEDS ORDERED: albumin 25% 100mL bottle x 1 IV PRN (07:10)
[2020-11-24] MEDS ORDERED: LIDOcaine 1% (10mg/ml) 2ml vial ONE (07:38)
== END 2020-11-24 10:35 | disposition home or self-care (01) ==
LOC: SSTAY O 06:46
PROVIDERS: ATTEND Radiology Vascular & Interventional Radiology
DX: K70.31 Alcoholic cirrhosis of liver with ascites (principal); K21.9 Gastro-esophageal reflux disease without esophagitis; E87.6 Hypokalemia; K72.90 Hepatic failure, unspecified without coma; D69.6 Thrombocytopenia, unspecified; N18.6 End stage renal disease; F10.20 Alcohol dependence, uncomplicated; Z79.899 Other long term (current) drug therapy
CPT/HCPCS: 49083; J2001; P9047

== ENCOUNTER 2020-12-01 07:36 | Day surgery (SDC) | payer BC ==
[2020-12-01] VITALS (11 sets, daily range): BP systolic 101–109; BP diastolic 65–75
[~2020-12-01] VITALS: Ht 165.1 cm; Wt 72.6 kg
[~2020-12-01 07:36] MED LIST changes: -LACT10SO67; +LACT10SO67 PO
[2020-12-01] MEDS ORDERED: FOLI0.4T6 PO (08:33)
[2020-12-01] MEDS ORDERED: CYAN-34 PO (08:34)
[2020-12-01] MEDS: albumin 25% 100mL bottle x 1 IV PRN ×2 (09:51→10:28)
== END 2020-12-01 11:30 | disposition home or self-care (01) ==
LOC: SSTAY O 07:36
PROVIDERS: ATTEND Radiology Vascular & Interventional Radiology
DX: K70.31 Alcoholic cirrhosis of liver with ascites (principal); E87.6 Hypokalemia; K21.9 Gastro-esophageal reflux disease without esophagitis; K72.90 Hepatic failure, unspecified without coma; D69.6 Thrombocytopenia, unspecified; N18.6 End stage renal disease; F10.10 Alcohol abuse, uncomplicated; Z79.899 Other long term (current) drug therapy
CPT/HCPCS: 49083; P9047

== ENCOUNTER 2020-12-15 09:05 | Day surgery (SDC) | payer BC ==
[~2020-12-15] VITALS: Ht 165.1 cm; Wt 72.7 kg
[2020-12-15] VITALS (10 sets, daily range): BP systolic 96–114; BP diastolic 51–75
[~2020-12-15 09:05] MED LIST changes: +CYAN-34 PO; +FOLI0.4T6 PO
[2020-12-15] MEDS: albumin 25% 100mL bottle x 1 IV PRN ×2 (10:11→10:53)
== END 2020-12-15 11:54 | disposition home or self-care (01) ==
LOC: SSTAY O 09:05
PROVIDERS: ATTEND Radiology Diagnostic Radiology
DX: K70.31 Alcoholic cirrhosis of liver with ascites (principal); E87.6 Hypokalemia; K21.9 Gastro-esophageal reflux disease without esophagitis; K72.90 Hepatic failure, unspecified without coma; N18.6 End stage renal disease; F10.20 Alcohol dependence, uncomplicated; Z79.899 Other long term (current) drug therapy
CPT/HCPCS: 49083; P9047

== ENCOUNTER 2020-12-20 20:19 | Emergency (ER) | payer BC ==
[~2020-12-20] VITALS: Ht 165.1 cm; Wt 72.7 kg
--- NOTE | 2020-12-20 21:00 | NUR ---
DR PAULA MADE AWARE OF PTMD QUICKLY IN TO SEE PT, REPORTS THAT SHE IS STABLE TO WAIT TO BE SEEN
[2020-12-20] MEDS ORDERED: LIDOcaine 1% W/epiNEPHrine 1:100,000 20ml vial SQ ONE (22:10)
[2020-12-20 22:55] VITALS: BP 108/60
== END 2020-12-20 23:01 | disposition home or self-care (01) ==
LOC: ER 20:19
DX: K70.31 Alcoholic cirrhosis of liver with ascites (principal); R10.31 Right lower quadrant pain; R06.02 Shortness of breath; K21.9 Gastro-esophageal reflux disease without esophagitis; F17.200 Nicotine dependence, unspecified, uncomplicated; Z79.899 Other long term (current) drug therapy
CPT/HCPCS: 49083; 76705; 99285

== ENCOUNTER 2020-12-27 08:36 | Day surgery (SDC) | payer BC ==
[2020-12-27] VITALS (8 sets, daily range): BP systolic 107–113; BP diastolic 68–78
[~2020-12-27] VITALS: Ht 165.1 cm; Wt 74.4 kg
[2020-12-27] MEDS ORDERED: albumin 25% 100mL bottle x 1 IV PRN (09:05)
== END 2020-12-27 11:55 | disposition home or self-care (01) ==
LOC: SSTAY O 08:36
PROVIDERS: ATTEND Radiology Diagnostic Radiology
DX: K70.31 Alcoholic cirrhosis of liver with ascites (principal); F10.20 Alcohol dependence, uncomplicated; E87.6 Hypokalemia; K21.9 Gastro-esophageal reflux disease without esophagitis; K72.90 Hepatic failure, unspecified without coma; D69.6 Thrombocytopenia, unspecified; N18.6 End stage renal disease; Z79.899 Other long term (current) drug therapy
CPT/HCPCS: 49083; P9047

== ENCOUNTER 2021-01-03 06:54 | Day surgery (SDC) | payer BC ==
[~2021-01-03] VITALS: Ht 165.1 cm; Wt 76.1 kg
[2021-01-03] VITALS (11 sets, daily range): BP systolic 108–129; BP diastolic 68–83
[2021-01-03] MEDS: albumin 25% 100mL bottle x 1 IV PRN ×2 (09:00→09:57)
== END 2021-01-03 10:55 | disposition home or self-care (01) ==
LOC: SSTAY O 06:54
PROVIDERS: ATTEND Radiology Diagnostic Radiology
DX: K70.31 Alcoholic cirrhosis of liver with ascites (principal); K72.90 Hepatic failure, unspecified without coma; E87.6 Hypokalemia; D69.6 Thrombocytopenia, unspecified; N18.6 End stage renal disease; K21.9 Gastro-esophageal reflux disease without esophagitis; F10.20 Alcohol dependence, uncomplicated; Z98.890 Other specified postprocedural states; Z79.899 Other long term (current) drug therapy
CPT/HCPCS: 49083; P9047

== ENCOUNTER 2021-01-12 07:06 | Day surgery (SDC) | payer BC ==
[2021-01-12] VITALS (11 sets, daily range): BP systolic 93–108; BP diastolic 56–70
[~2021-01-12] VITALS: Ht 165.1 cm; Wt 69.9 kg
[~2021-01-12 07:06] MED LIST changes: -OMEP40CA13 PO; +OMEP40CA21 PO
[2021-01-12] MEDS ORDERED: normal saline 1000ml 1,000 ML IV PRN (07:40)
[2021-01-12] MEDS: albumin 25% 100mL bottle x 1 IV PRN ×2 (08:41→10:10)
== END 2021-01-12 11:15 | disposition home or self-care (01) ==
LOC: SSTAY O 07:06
PROVIDERS: ATTEND Radiology Vascular & Interventional Radiology
DX: K70.31 Alcoholic cirrhosis of liver with ascites (principal); E87.6 Hypokalemia; K21.9 Gastro-esophageal reflux disease without esophagitis; K72.90 Hepatic failure, unspecified without coma; D69.6 Thrombocytopenia, unspecified; N18.6 End stage renal disease; F10.20 Alcohol dependence, uncomplicated; Z87.19 Personal history of other diseases of the digestive system; Z79.899 Other long term (current) drug therapy
CPT/HCPCS: 49083; P9047

== ENCOUNTER 2021-01-16 19:35 | Emergency (ER) | payer BC ==
[~2021-01-16] VITALS: Ht 165.1 cm; Wt 65.8 kg
[2021-01-16 20:27] LABS: BASOPHILS % (AUTO) 0.8 % (0-1); EOSINOPHILS # (AUTO) 0.1 X10'3 (0-0.9); EOSINOPHILS % (AUTO) 1.7 % (0-6); HEMATOCRIT 27.1 % (35.0-45.0); HEMOGLOBIN 8.8 g/dl (12.0-16.0); LYMPHOCYTES # (AUTO) 1.4 X10'3 (1.1-4.8); LYMPHOCYTES % (AUTO) 31.6 % (21-51); MEAN CORPUSCULAR HEMOGLOBIN 28.6 PG (27.0-31.0); MEAN CORPUSCULAR HGB CONC 32.5 g/dL (33.0-36.5); MEAN CORPUSCULAR VOLUME 88.1 FL (78-98); MEAN PLATELET VOLUME 9.1 FL (7.4-10.4); MONOCYTES # (AUTO) 0.7 X10'3 (0-0.9); MONOCYTES % (AUTO) 15.3 % (2-12); NEUTROPHILS # (AUTO) 2.2 X10'3 (1.8-7.7); NEUTROPHILS % (AUTO) 50.6 % (42-75); PLATELET COUNT 59 X10'3 (140-440); RED BLOOD COUNT 3.07 X10'6 (4.20-5.60); RED CELL DISTRIBUTION WIDTH 17.7 % (11.5-14.5); WHITE BLOOD COUNT 4.4 X10'3 (4.5-11.0)
[2021-01-16 20:39] LABS: ALANINE AMINOTRANSFERASE 35 U/L (12-78); ALBUMIN 2.9 G/DL (3.4-5.0); ALBUMIN/GLOBULIN RATIO 0.9 (1.1-1.5); ALKALINE PHOSPHATASE 242 IU/L (46-116); ANION GAP 14 (8-16); ASPARTATE AMINO TRANSFERASE 127 U/L (10-37); BILIRUBIN,TOTAL 2.2 MG/DL (0.1-1.0); BLOOD UREA NITROGEN 11 MG/DL (7-18); BUN/CREATININE RATIO 6.7 (6.6-38.0); CALCIUM 7.5 MG/DL (8.5-10.1); CHLORIDE 105 MMOL/L (99-107); CREATININE 1.63 MG/DL (0.40-0.90); GLUCOSE 85 MG/DL (70-104); LIPASE 495 U/L (73-393); SODIUM 137 MMOL/L (135-145); TOTAL CARBON DIOXIDE 17.9 MMOL/L (24-32); TOTAL PROTEIN 6.1 G/DL (6.4-8.2); eGFR 33 ML/MIN
[2021-01-16 20:42] LABS: POTASSIUM 2.6 MMOL/L (3.5-5.1)
[2021-01-16 21:30] LABS: ANISOCYTOSIS 1+; PLATELET ESTIMATE DECREASED; TOTAL CELLS COUNTED 100
[2021-01-16 21:31] LABS: HYPOCHROMASIA 1+
[2021-01-16 21:32] LABS: ELLIPTOCYTES FEW; POIKILOCYTOSIS FEW; POLYCHROMASIA FEW; SCHISTOCYTES FEW; TEAR DROP CELLS FEW
[2021-01-16] MEDS ORDERED: potassium Cl 20 mEq SR tablet PO STA (22:15)
--- NOTE | 2021-01-16 23:49 | NUR ---
PT STATES SHE CANNOT URINATE
[2021-01-17 00:20] LABS: BFAPPEAR CLEAR
--- NOTE | 2021-01-17 00:24 | NUR ---
PARACENTESIS PERFORMED BY DR. DESAI WITH RELIEF OF TWO FULL BOTTLES OF LIGHT BROWN FLUID.
[2021-01-17 00:26] LABS: BF RBC COUNT 342 /CU MM; BF WBC COUNT 44 /CU MM (0-1000); BFCOLOR YELLOW; BFVOLUME 55 ML
[2021-01-17 00:30] LABS: LYMPHOCYTES,BODY FLUID 39 %; MONOCYTES,BODY FLUID 57 %; NEUTROPHILS,BODY FLUID 4 %
[2021-01-17 00:42] LABS: BF MESOTHELIAL CELLS FEW
[2021-01-17 01:15] VITALS: BP 97/62
[2021-01-24 15:39] LABS: OCCULT BLOOD STOOL NEGATIVE (Neg)
== END 2021-01-17 01:20 | disposition home or self-care (01) ==
LOC: ER 19:36
DX: K70.31 Alcoholic cirrhosis of liver with ascites (principal); E87.6 Hypokalemia; R10.84 Generalized abdominal pain; R19.7 Diarrhea, unspecified; R11.2 Nausea with vomiting, unspecified; K21.9 Gastro-esophageal reflux disease without esophagitis; Z72.89 Other problems related to lifestyle; Z79.899 Other long term (current) drug therapy
CPT/HCPCS: 36415; 49083; 76705; 80053; 82272; 83690; 85007; 85025; 85610; 87070; 89051; 93005; 99285

== ENCOUNTER 2021-01-23 07:02 | Day surgery (SDC) | payer BC ==
[~2021-01-23] VITALS: Ht 165.1 cm; Wt 67.9 kg
[2021-01-23] VITALS (10 sets, daily range): BP systolic 92–102; BP diastolic 57–65
[2021-01-23] MEDS: albumin 25% 100mL bottle x 1 IV PRN (09:36)
== END 2021-01-23 11:15 | disposition home or self-care (01) ==
LOC: SSTAY O 07:02
PROVIDERS: ATTEND Radiology Vascular & Interventional Radiology
DX: K70.31 Alcoholic cirrhosis of liver with ascites (principal); K72.90 Hepatic failure, unspecified without coma; E87.6 Hypokalemia; K21.9 Gastro-esophageal reflux disease without esophagitis; D69.6 Thrombocytopenia, unspecified; N18.6 End stage renal disease; F10.20 Alcohol dependence, uncomplicated; R14.0 Abdominal distension (gaseous); Z79.899 Other long term (current) drug therapy
CPT/HCPCS: 49083; P9047

== ENCOUNTER 2021-02-02 06:05 | Day surgery (SDC) | payer BC ==
[2021-02-02] VITALS (7 sets, daily range): BP systolic 87–97; BP diastolic 57–69
[~2021-02-02] VITALS: Ht 165.1 cm; Wt 68.6 kg
[2021-02-02] MEDS ORDERED: LIDOcaine 1% (10mg/ml) 2ml vial ONE (06:23)
[2021-02-02] MEDS ORDERED: SYN0.088T PO (06:24)
[2021-02-02] MEDS ORDERED: albumin 25% 100mL bottle x 1 IV PRN (06:25)
== END 2021-02-02 10:40 | disposition home or self-care (01) ==
LOC: SSTAY O 06:05
PROVIDERS: ATTEND Radiology Vascular & Interventional Radiology
DX: K70.31 Alcoholic cirrhosis of liver with ascites (principal); E87.6 Hypokalemia; K21.9 Gastro-esophageal reflux disease without esophagitis; N18.6 End stage renal disease; D69.6 Thrombocytopenia, unspecified; K72.90 Hepatic failure, unspecified without coma; F10.20 Alcohol dependence, uncomplicated; Z79.899 Other long term (current) drug therapy
CPT/HCPCS: 49083; J2001; P9047

== ENCOUNTER 2021-02-10 06:01 | Day surgery (SDC) | payer BC ==
[2021-02-10] VITALS (7 sets, daily range): BP systolic 88–107; BP diastolic 60–85
[~2021-02-10] VITALS: Ht 165.1 cm; Wt 67.6 kg
[~2021-02-10 06:01] MED LIST changes: +SYN0.088T PO
[2021-02-10] MEDS ORDERED: albumin 25% 100mL bottle x 1 IV PRN (06:15)
[2021-02-10] MEDS ORDERED: LEVO50TA8 PO (07:23)
== END 2021-02-10 09:20 | disposition home or self-care (01) ==
LOC: SSTAY O 06:01
PROVIDERS: ATTEND Radiology Vascular & Interventional Radiology
DX: K70.31 Alcoholic cirrhosis of liver with ascites (principal); E87.6 Hypokalemia; K21.9 Gastro-esophageal reflux disease without esophagitis; N18.6 End stage renal disease; K72.90 Hepatic failure, unspecified without coma; D69.6 Thrombocytopenia, unspecified; Z79.899 Other long term (current) drug therapy; F10.20 Alcohol dependence, uncomplicated
CPT/HCPCS: 49083; P9047

== ENCOUNTER 2021-02-16 23:40 | Observation (INO) | payer BC ==
[~2021-02-16] VITALS: Ht 165.1 cm; Wt 68.2 kg
[~2021-02-16 23:40] MED LIST changes: +LEVO50TA8 PO; -SYN0.088T PO
--- NOTE | 2021-02-16 23:59 | NUR ---
Patient states it is okay to give boyfriend Leroy Almonte information on her, he can also be reached at [phone]
[2021-02-17 01:21] LABS: ALANINE AMINOTRANSFERASE 40 U/L (12-78); ALBUMIN 2.6 G/DL (3.4-5.0); ALBUMIN/GLOBULIN RATIO 0.7 (1.1-1.5); ALKALINE PHOSPHATASE 217 IU/L (46-116); ANION GAP 11 (8-16); ASPARTATE AMINO TRANSFERASE 155 U/L (10-37); BILIRUBIN,TOTAL 2.6 MG/DL (0.1-1.0); BLOOD UREA NITROGEN 34 MG/DL (7-18); BUN/CREATININE RATIO 20.7 (6.6-38.0); CALCIUM 7.6 MG/DL (8.5-10.1); CHLORIDE 101 MMOL/L (99-107); CREATININE 1.64 MG/DL (0.40-0.90); GLUCOSE 83 MG/DL (70-104); LIPASE 688 U/L (73-393); POTASSIUM 5.1 MMOL/L (3.5-5.1); SODIUM 130 MMOL/L (135-145); TOTAL CARBON DIOXIDE 17.6 MMOL/L (24-32); TOTAL PROTEIN 6.1 G/DL (6.4-8.2); eGFR 33 ML/MIN
[2021-02-17] MEDS ORDERED: lactulose 20gm/30ml cup PO ONE (01:40)
[2021-02-17 02:02] LABS: HEMATOCRIT 26.3 % (35.0-45.0); HEMOGLOBIN 8.8 g/dl (12.0-16.0); MEAN CORPUSCULAR HEMOGLOBIN 30.5 PG (27.0-31.0); MEAN CORPUSCULAR HGB CONC 33.6 g/dL (33.0-36.5); MEAN CORPUSCULAR VOLUME 90.8 FL (78-98); RED BLOOD COUNT 2.89 X10'6 (4.20-5.60); WHITE BLOOD COUNT 5.1 X10'3 (4.5-11.0)
[2021-02-17 02:03] LABS: BASOPHILS % (AUTO) 0.6 % (0-1); EOSINOPHILS % (AUTO) 1.9 % (0-6); LYMPHOCYTES % (AUTO) 20.6 % (21-51); MONOCYTES % (AUTO) 13.6 % (2-12); NEUTROPHILS # (AUTO) 3.2 X10'3 (1.8-7.7); NEUTROPHILS % (AUTO) 63.3 % (42-75)
[2021-02-17 02:04] LABS: EOSINOPHILS # (AUTO) 0.1 X10'3 (0-0.9); MONOCYTES # (AUTO) 0.7 X10'3 (0-0.9)
--- NOTE | 2021-02-17 02:44 | NUR ---
pt reports unable to provide urine sample. pt has ambulated up to bathroom multiple times. necessity of urine sample explained to pt
--- NOTE | 2021-02-17 02:58 | NUR ---
hospitalist at bedside
[2021-02-17] MEDS ORDERED: magnesium hydroxide 30ml (MOM) UD suspension PO PRN (03:10)
[2021-02-17] MEDS ORDERED: acetaminophen 325mg tablet PO PRN (03:10)
[2021-02-17] MEDS ORDERED: potassium Cl 20 mEq SR tablet PO PRN ×2 (03:10)
[2021-02-17] MEDS ORDERED: ondansetron/PF 4mg/2ml inj IV PRN (03:10)
[2021-02-17] MEDS ORDERED: mag hydrox/Alum hydrox/simeth 30ml oral suspension PO PRN (03:10)
[2021-02-17] MEDS ORDERED: potassium Cl 40MEQ/1/2NS 520ml 520 ML IV PRN ×2 (03:10)
--- NOTE | 2021-02-17 03:10 | NUR ---
PT AMBULATORY TO RESTROOM AND THEN BACK TO BED
--- NOTE | 2021-02-17 03:36 | NUR ---
PT AMBULATORY TO RESTROOM AND THEN BACK TO BED
[2021-02-17 07:00] VITALS: BP 117/73
[2021-02-17] MEDS ORDERED: levoTHYROXINE 25mcg tablet PO SCH (07:00)
[2021-02-17] MEDS ORDERED: pantoprazole 40mg Tablet.DR PO SCH (07:30)
[2021-02-17] MEDS ORDERED: K and/or MAG REPLACEMENT MC SCH ×2 (08:00→20:00)
[2021-02-17] MEDS ORDERED: lactulose 20gm/30ml cup PO SCH (08:00)
[2021-02-17] MEDS ORDERED: magnesium Cl slow-release 64mg tablet PO PRN (08:30)
[2021-02-17] MEDS: lactulose 20gm/30ml cup PO SCH ×2 (08:30→12:00)
[2021-02-17] MEDS ORDERED: magnesium 4gm in 100ml NS 100 ML IV PRN (08:30)
[2021-02-17 11:00] VITALS: BP 111/68
[2021-02-17 13:12] VITALS: BP 113/76
[2021-02-17] MEDS ORDERED: albumin (human) 25% 100 ML IV solution IV ONE (13:20)
[2021-02-17 14:02] VITALS: BP 106/65
[2021-02-17] MEDS ORDERED: FOLI0.4T6 PO ×2 (15:12)
[2021-02-17] MEDS ORDERED: LACT10SO32 PO ×2 (15:12)
[2021-02-17] MEDS ORDERED: THIA50TA10 PO ×2 (15:12)
[2021-02-17] MEDS ORDERED: MULT-1074 PO ×2 (15:12)
== END 2021-02-17 16:38 | disposition home or self-care (01) ==
LOC: ER 23:41 → ED HOLD 02-17 03:10 → SUR 3N 02-17 06:55
PROVIDERS: ADMIT Internal Medicine; ATTEND Internal Medicine
DX: K70.31 Alcoholic cirrhosis of liver with ascites (principal); K72.90 Hepatic failure, unspecified without coma; K21.9 Gastro-esophageal reflux disease without esophagitis; Z79.899 Other long term (current) drug therapy; Z91.14 Patient's other noncompliance with medication regimen
CPT/HCPCS: 36415; 49083; 80053; 80320; 82140; 83690; 84443; 85025; 85610; 96374; 99285; G0378; P9047

== ENCOUNTER 2021-02-24 06:43 | Day surgery (SDC) | payer BC ==
[~2021-02-24] VITALS: Ht 165.1 cm; Wt 67.5 kg
[~2021-02-24 06:43] MED LIST changes: +LACT10SO32 PO; +MULT-1074 PO; +THIA50TA10 PO
[2021-02-24] MEDS ORDERED: albumin 25% 100mL bottle x 1 IV PRN (07:15)
[2021-02-24 07:19] VITALS: BP 108/49
[2021-02-24] MEDS ORDERED: FOLI0.4T14 PO (07:37)
[2021-02-24] MEDS ORDERED: LACT10SO3 PO (07:38)
[2021-02-24] MEDS ORDERED: MULT-1074 PO (07:39)
[2021-02-24] MEDS ORDERED: THIA50TA10 PO (07:40)
[2021-02-24 08:45] VITALS: BP 98/65
[2021-02-24 09:00] VITALS: BP 99/65
[2021-02-24 09:15] VITALS: BP 98/61
[2021-02-24 09:30] VITALS: BP 98/67
[2021-02-24 09:45] VITALS: BP 97/68
== END 2021-02-24 09:50 | disposition home or self-care (01) ==
LOC: SSTAY O 06:43
PROVIDERS: ATTEND Radiology Diagnostic Radiology
DX: K70.31 Alcoholic cirrhosis of liver with ascites (principal); E87.6 Hypokalemia; K21.9 Gastro-esophageal reflux disease without esophagitis; D69.6 Thrombocytopenia, unspecified; N18.6 End stage renal disease; K72.90 Hepatic failure, unspecified without coma; F10.20 Alcohol dependence, uncomplicated; Z79.899 Other long term (current) drug therapy
CPT/HCPCS: 49083; P9047

== ENCOUNTER 2021-03-06 05:48 | Day surgery (SDC) | payer BC ==
[2021-03-06] VITALS (8 sets, daily range): BP systolic 97–104; BP diastolic 62–72
[~2021-03-06] VITALS: Ht 165.1 cm; Wt 72.1 kg
[~2021-03-06 05:48] MED LIST changes: -ALBU18HF2 INH; -CYAN-34 PO; +FOLI0.4T14 PO; -FOLI0.4T6 PO; +LACT10SO3 PO; -LACT10SO32 PO; -LACT10SO67 PO
[2021-03-06] MEDS ORDERED: albumin 25% 100mL bottle x 1 IV PRN (06:10)
[2021-03-06] MEDS ORDERED: normal saline 1000ml 1,000 ML IV PRN (06:10)
== END 2021-03-06 10:45 | disposition home or self-care (01) ==
LOC: SSTAY O 05:48
PROVIDERS: ATTEND Radiology Diagnostic Radiology
DX: K70.31 Alcoholic cirrhosis of liver with ascites (principal); K72.90 Hepatic failure, unspecified without coma; E87.6 Hypokalemia; K21.9 Gastro-esophageal reflux disease without esophagitis; D69.6 Thrombocytopenia, unspecified; N18.6 End stage renal disease; F10.20 Alcohol dependence, uncomplicated; Z79.899 Other long term (current) drug therapy
CPT/HCPCS: 49083

== ENCOUNTER 2021-03-13 06:15 | Day surgery (SDC) | payer BC ==
[2021-03-13] VITALS (9 sets, daily range): BP systolic 93–108; BP diastolic 59–73
[~2021-03-13] VITALS: Ht 165.1 cm; Wt 70.7 kg
[2021-03-13] MEDS ORDERED: ondansetron/PF 4mg/2ml inj IV ONE (07:15)
[2021-03-13] MEDS: albumin 25% 100mL bottle x 1 IV PRN ×2 (08:38→08:39)
== END 2021-03-13 10:15 | disposition home or self-care (01) ==
LOC: SSTAY O 06:15
PROVIDERS: ATTEND Radiology Vascular & Interventional Radiology
DX: K70.31 Alcoholic cirrhosis of liver with ascites (principal); K72.90 Hepatic failure, unspecified without coma; E87.6 Hypokalemia; K21.9 Gastro-esophageal reflux disease without esophagitis; D69.6 Thrombocytopenia, unspecified; N18.6 End stage renal disease; F10.20 Alcohol dependence, uncomplicated; Z98.890 Other specified postprocedural states; Z79.899 Other long term (current) drug therapy
CPT/HCPCS: 49083; J2405; P9047

== ENCOUNTER 2021-03-20 06:46 | Day surgery (SDC) | payer BC ==
[~2021-03-20] VITALS: Ht 165.1 cm; Wt 68.6 kg
[2021-03-20] VITALS (8 sets, daily range): BP systolic 93–107; BP diastolic 62–70
[2021-03-20] MEDS ORDERED: albumin 25% 100mL bottle x 1 IV PRN (07:25)
== END 2021-03-20 10:05 | disposition home or self-care (01) ==
LOC: SSTAY O 06:46
PROVIDERS: ATTEND Radiology Vascular & Interventional Radiology
DX: K70.31 Alcoholic cirrhosis of liver with ascites (principal); K21.9 Gastro-esophageal reflux disease without esophagitis; N18.6 End stage renal disease; Z72.89 Other problems related to lifestyle; Z79.899 Other long term (current) drug therapy; Z98.890 Other specified postprocedural states
CPT/HCPCS: 49083; P9047

== ENCOUNTER 2021-03-25 16:22 | Inpatient (IN) | payer BC ==
[~2021-03-25] VITALS: Ht 165.1 cm; Wt 68.3 kg
[2021-03-25 17:06] LABS: BASOPHILS % (AUTO) 0.3 % (0-1); EOSINOPHILS % (AUTO) 0.1 % (0-6); HEMATOCRIT 24.1 % (35.0-45.0); HEMOGLOBIN 8.2 g/dl (12.0-16.0); LYMPHOCYTES # (AUTO) 0.6 X10'3 (1.1-4.8); LYMPHOCYTES % (AUTO) 5.8 % (21-51); MEAN CORPUSCULAR HEMOGLOBIN 30.9 PG (27.0-31.0); MEAN CORPUSCULAR VOLUME 91.1 FL (78-98); MONOCYTES % (AUTO) 9.9 % (2-12); NEUTROPHILS # (AUTO) 8.6 X10'3 (1.8-7.7); NEUTROPHILS % (AUTO) 83.9 % (42-75); PLATELET COUNT 62 X10'3 (140-440); RED BLOOD COUNT 2.65 X10'6 (4.20-5.60); RED CELL DISTRIBUTION WIDTH 17.9 % (11.5-14.5); WHITE BLOOD COUNT 10.2 X10'3 (4.5-11.0)
[2021-03-25] MEDS ORDERED: normal saline 1000ML IV soln IVB ONE ×2 (17:10→19:00)
[2021-03-25] MEDS ORDERED: ondansetron/PF 4mg/2ml inj IV ONE (17:10)
[2021-03-25] MEDS ORDERED: morphine 4 MG/ML inj SYRINge IV ONE (17:10)
[2021-03-25 17:21] LABS: PLATELET ESTIMATE DECREASED
[2021-03-25 17:22] LABS: ANISOCYTOSIS 1+; ELLIPTOCYTES FEW; HYPOCHROMASIA 1+; POLYCHROMASIA FEW; SCHISTOCYTES FEW; TEAR DROP CELLS FEW
[2021-03-25 17:33] LABS: ALANINE AMINOTRANSFERASE 25 U/L (12-78); ALBUMIN 2.4 G/DL (3.4-5.0); ALBUMIN/GLOBULIN RATIO 0.9 (1.1-1.5); ALKALINE PHOSPHATASE 167 IU/L (46-116); ANION GAP 15 (8-16); ASPARTATE AMINO TRANSFERASE 73 U/L (10-37); BILIRUBIN,TOTAL 2.8 MG/DL (0.1-1.0); BLOOD UREA NITROGEN 14 MG/DL (7-18); BUN/CREATININE RATIO 7.7 (6.6-38.0); CALCIUM 6.9 MG/DL (8.5-10.1); CHLORIDE 104 MMOL/L (99-107); CREATININE 1.83 MG/DL (0.40-0.90); GLUCOSE 92 MG/DL (70-104); LIPASE 190 U/L (73-393); POTASSIUM 3.3 MMOL/L (3.5-5.1); SODIUM 136 MMOL/L (135-145); TOTAL CARBON DIOXIDE 17.1 MMOL/L (24-32); TOTAL PROTEIN 5.1 G/DL (6.4-8.2); eGFR 29 ML/MIN
[2021-03-25 18:01] LABS: URINE HCG NEGATIVE (NEG)
[2021-03-25 18:02] LABS: CLARITY,URINE CLOUDY (Clear); COLOR,URINE YELLOW (Yellow); GLUCOSE, URINE NEGATIVE (Neg); KETONES,URINE TRACE mg/dl (Neg); LEUKOCYTE ESTERASE ,URINE NEGATIVE (Neg); NITRITES, URINE NEGATIVE (Neg); OCCULT BLOOD,URINE NEGATIVE (Neg); PH,URINE 5.5 (4.8-8.0); PROTEIN,URINE NEGATIVE (Neg); UA COLLECTION TYPE STRAIGHT CATH; UROBILINOGEN,URINE 0.2 E.U/dL (0.2-1.0)
[2021-03-25 18:08] LABS: BACTERIA,URINE 4+ /HPF (Neg); RBC,URINE NONE SEEN /HPF (0-2); SQUAMOUS EPITHELIAL CELL,UR FEW /LPF (FEW); WBC,URINE 0-4 /HPF (0-4)
[2021-03-25 18:09] LABS: WBC CLUMPS,URINE FEW /HPF (NEGATIVE)
[2021-03-25 18:16] LABS: PARTIAL THROMBOPLASTIN TIME 31 SECONDS (22-32)
[2021-03-25] MEDS ORDERED: thiamine inj. 100 MG in normal saline 100ml IV soln 99 ML IV ONE (19:00)
[2021-03-25] MEDS ORDERED: phenobarbital inj 260 MG in normal saline 100ml IV soln 100 ML IV ONE (19:00)
[2021-03-25] MEDS ORDERED: magnesium 2GM in 50ml NS 50 ML IV ONE (19:00)
[2021-03-25] MEDS ORDERED: LORA-269 PO (19:05)
[2021-03-25] MEDS ORDERED: HYDR-3686 PO (19:05)
--- NOTE | 2021-03-25 19:11 | NUR ---
According to boyfriend supriya who lives with patient states she will have half a beer occasionally. She also has not had anything to eat for past 3 days and has been occasionally throwing up bile.
[2021-03-25 20:07] LABS: MAGNESIUM 1.3 MG/DL (1.5-2.4)
[2021-03-25 20:08] LABS: ETHANOL < 0.010 GM/DL (0.0-0.010)
[2021-03-25] MEDS: potassium Cl 20 mEq SR tablet PO STA ×2 (20:40→20:52)
[2021-03-25] MEDS ORDERED: potassium Cl 40 mEq/0.45% sodium chloride IV soln 520ml IV ONE (20:55)
[2021-03-25] MEDS ORDERED: morphine 2 MG/ML inj. syringe IV PRN ×2 (21:00)
[2021-03-25] MEDS ORDERED: magnesium hydroxide 30ml (MOM) UD suspension PO PRN (21:00)
[2021-03-25] MEDS ORDERED: magnesium 2GM in 50ml NS 50 ML IV PRN (21:00)
[2021-03-25] MEDS ORDERED: magnesium Cl slow-release 64mg tablet PO PRN (21:00)
[2021-03-25] MEDS ORDERED: acetaminophen 325mg tablet PO PRN ×2 (21:00)
[2021-03-25] MEDS ORDERED: bisacodyl 10mg suppository rectal RC PRN (21:00)
[2021-03-25] MEDS ORDERED: ondansetron/PF 4mg/2ml inj IV PRN (21:00)
[2021-03-25] MEDS ORDERED: diphenhydrAMINE 25mg capsule PO PRN (21:00)
[2021-03-25] MEDS ORDERED: mag hydrox/Alum hydrox/simeth 30ml oral suspension PO PRN (21:00)
[2021-03-25] MEDS ORDERED: LORazepam 2 mg/ml vial IV PRN (21:00)
[2021-03-25] MEDS ORDERED: haloperidol 5mg tablet PO PRN (21:00)
[2021-03-25] MEDS ORDERED: acetaminophen 650mg rectal suppository RC PRN (21:00)
[2021-03-25] MEDS ORDERED: temazepam 15mg capsule PO PRN (21:00)
[2021-03-25] MEDS ORDERED: potassium Cl 40MEQ/1/2NS 520ml 520 ML IV PRN (21:00)
[2021-03-25] MEDS ORDERED: potassium Cl 20 mEq SR tablet PO PRN ×2 (21:00)
[2021-03-25] MEDS ORDERED: HYDROcodone/acetaminophen 5mg/325mg tablet PO PRN (21:00)
[2021-03-25] MEDS ORDERED: diphenhydrAMINE 50 mg/ml inj IV PRN (21:00)
[2021-03-25] MEDS ORDERED: ondansetron 4mg rapidly disintigrating tab PO PRN (21:00)
[2021-03-25] MEDS ORDERED: dextrose 50%-water 50ml dispensing syringe IV PRN (21:00)
[2021-03-25] MEDS ORDERED: magnesium 4gm in 100ml NS 100 ML IV PRN (21:00)
--- NOTE | 2021-03-25 21:22 | NUR ---
Patient taken to CT
[2021-03-25 22:11] LABS: HEMOGLOBIN A1C 4.8 % (4.5-6.2)
[2021-03-25 22:16] LABS: CREATINE KINASE 60 U/L (26-192); PHOSPHORUS 2.1 MG/DL (2.3-4.5)
[2021-03-25] MEDS: dextrose 5%-1/2 normal saline 1,000 ML IV SCH (23:29)
[2021-03-25] MEDS: potassium Cl 40MEQ/1/2NS 520ml 520 ML IV PRN (23:29)
[2021-03-26 00:33] LABS: EOSINOPHILS % (AUTO) 0.1 % (0-6); HEMATOCRIT 22.1 % (35.0-45.0); HEMOGLOBIN 7.5 g/dl (12.0-16.0); LYMPHOCYTES # (AUTO) 0.6 X10'3 (1.1-4.8); MONOCYTES # (AUTO) 0.8 X10'3 (0-0.9); RED BLOOD COUNT 2.47 X10'6 (4.20-5.60)
[2021-03-26 00:34] LABS: BASOPHILS % (AUTO) 0.3 % (0-1); LYMPHOCYTES % (AUTO) 5.4 % (21-51); MEAN CORPUSCULAR HEMOGLOBIN 30.5 PG (27.0-31.0); MEAN CORPUSCULAR HGB CONC 34.1 g/dL (33.0-36.5); MEAN CORPUSCULAR VOLUME 89.5 FL (78-98); MEAN PLATELET VOLUME 8.7 FL (7.4-10.4); MONOCYTES % (AUTO) 7.9 % (2-12); NEUTROPHILS % (AUTO) 86.3 % (42-75); PLATELET COUNT 57 X10'3 (140-440); RED CELL DISTRIBUTION WIDTH 17.8 % (11.5-14.5); WHITE BLOOD COUNT 10.4 X10'3 (4.5-11.0)
[2021-03-26 00:57] LABS: ALANINE AMINOTRANSFERASE 22 U/L (12-78); ALBUMIN 2.1 G/DL (3.4-5.0); ALBUMIN/GLOBULIN RATIO 0.8 (1.1-1.5); ALKALINE PHOSPHATASE 150 IU/L (46-116); ANION GAP 14 (8-16); ASPARTATE AMINO TRANSFERASE 61 U/L (10-37); BILIRUBIN,TOTAL 2.6 MG/DL (0.1-1.0); BLOOD UREA NITROGEN 16 MG/DL (7-18); BUN/CREATININE RATIO 7.7 (6.6-38.0); CALCIUM 6.7 MG/DL (8.5-10.1); CHLORIDE 108 MMOL/L (99-107); CHOL/HDL RATIO 3.6 (0.00-4.99); CHOLESTEROL 76 MG/DL (0-200); CREATININE 2.09 MG/DL (0.40-0.90); GLUCOSE 76 MG/DL (70-104); HDL CHOLESTEROL 21 MG/DL (35-60); LDL CHOLESTEROL 51 MG/DL (50-100); MAGNESIUM 2.2 MG/DL (1.5-2.4); SODIUM 139 MMOL/L (135-145); TOTAL CARBON DIOXIDE 16.9 MMOL/L (24-32); TOTAL PROTEIN 4.6 G/DL (6.4-8.2); TRIGLYCERIDES 54 MG/DL (20-135); eGFR 25 ML/MIN
[2021-03-26 00:59] LABS: POTASSIUM 2.8 MMOL/L (3.5-5.1)
--- NOTE | 2021-03-26 01:06 | NUR ---
Patient resting in stretcher, even and unlabored respirations. Appears to be asleep at this time. IV potassium and IV fluids infusing at this time.
[2021-03-26 04:16] LABS: URINE AMPHETAMINE SCREEN NEGATIVE (Neg); URINE BARBITUATE SCREEN NEGATIVE (Neg); URINE BENZODIAZEPINES SCREEN NEGATIVE (Neg); URINE CANNABINOID SCREEN NEGATIVE (Neg); URINE COCAINE SCREEN NEGATIVE (Neg); URINE METHADONE SCREEN NEGATIVE (Neg); URINE OPIATE SCREEN NEGATIVE (Neg); URINE PHENCYCLIDINE SCREEN NEGATIVE (Neg)
[2021-03-26] MEDS: folic acid 1mg tablet PO SCH (07:13)
[2021-03-26] MEDS: multivitamins, therapeutics tablet PO SCH (07:13)
[2021-03-26] MEDS: lactulose 20gm/30ml cup PO SCH ×4 (07:14→23:54)
[2021-03-26] MEDS: levoTHYROXINE 25mcg tablet PO SCH (07:14)
[2021-03-26] MEDS: thiamine 100mg tablet PO SCH (07:14)
[2021-03-26] MEDS: pantoprazole 40mg Tablet.DR PO SCH (07:14)
[2021-03-26] MEDS: docusate sod 100mg capsule PO SCH ×2 (07:14→20:00)
[2021-03-26] MEDS: K and/or MAG REPLACEMENT MC SCH ×2 (07:15→20:00)
--- NOTE | 2021-03-26 07:52 | NUR ---
called ED for report, on hold for a long time. will call back in 10 min. ED very busy and short staff.
[2021-03-26] MEDS: rifaximin 550mg tablet PO SCH ×2 (08:00→20:34)
[2021-03-26] MEDS ORDERED: CefTRIAXone/D5W-Rocephin 1gm 50 ML IV SCH (08:00)
[2021-03-26] MEDS ORDERED: folic acid inj. 2 MG, thiamine inj. 100 MG, MVI, adult No.4 with vit. K 10 ML in dextro... IV SCH ×4 (08:00)
[2021-03-26] MEDS: dextrose 5%-1/2 normal saline 1,000 ML IV SCH ×2 (10:20→23:54)
[2021-03-26 10:30] VITALS: BP 99/61
[2021-03-26 11:00] VITALS: BP 96/54
--- NOTE | 2021-03-26 13:41 | NUR ---
PAGER ID: [phone] MESSAGE: Justine Deng [id number]- FYI positive blood cultures, Aerobic & Anarobic, with gram positive cocci, and chains. Thank you. Ina Cole [id number]
[2021-03-26 15:00] VITALS: BP 99/47
[2021-03-26] MEDS: ceFAZolin/D5W- 1GM premix 50 ML IV SCH ×2 (16:46→23:58)
--- NOTE | 2021-03-26 17:44 | NUR ---
Pt had a 1700 lactulose due, pt refused even after being educated multiple times about why she needed it. Her amonia levels are 84H. Dr Varela aware.
--- NOTE | 2021-03-26 17:48 | NUR ---
PAGER ID: [phone] MESSAGE: Justine Walters 8A- FYI- Pt refused her 0 Lactulose, even after she was educated multiple times as of why she needed it. Thank you. Ina Cole [facility] [phone]
--- NOTE | 2021-03-26 18:43 | NUR ---
Patient in room PCU 3028. I have received report from JB Buckley and had the opportunity to ask questions and assume patient care.
--- NOTE | 2021-03-26 19:02 | NUR ---
Problems reprioritized. Patient report given, questions answered & plan of care reviewed with phoenix MUHAMMAD.
[2021-03-26 20:10] VITALS: BP 92/59
[2021-03-26] MEDS: lactobacillus rhamnosus 10,000 MMU CELLS/CAPSULE PO SCH (20:35)
[2021-03-26 22:00] VITALS: BP 96/57
[2021-03-27 02:45] VITALS: BP 99/63
[2021-03-27 06:01] LABS: BASOPHILS % (AUTO) 0.3 % (0-1); EOSINOPHILS # (AUTO) 0.1 X10'3 (0-0.9); EOSINOPHILS % (AUTO) 1.8 % (0-6); HEMATOCRIT 22.5 % (35.0-45.0); HEMOGLOBIN 7.4 g/dl (12.0-16.0); LYMPHOCYTES # (AUTO) 0.6 X10'3 (1.1-4.8); LYMPHOCYTES % (AUTO) 11.6 % (21-51); MEAN CORPUSCULAR HEMOGLOBIN 30.4 PG (27.0-31.0); MEAN CORPUSCULAR HGB CONC 32.9 g/dL (33.0-36.5); MEAN CORPUSCULAR VOLUME 92.2 FL (78-98); MEAN PLATELET VOLUME 8.4 FL (7.4-10.4); MONOCYTES # (AUTO) 0.6 X10'3 (0-0.9); NEUTROPHILS # (AUTO) 3.9 X10'3 (1.8-7.7); NEUTROPHILS % (AUTO) 75.3 % (42-75); PLATELET COUNT 55 X10'3 (140-440); RED BLOOD COUNT 2.44 X10'6 (4.20-5.60); RED CELL DISTRIBUTION WIDTH 18.6 % (11.5-14.5); WHITE BLOOD COUNT 5.1 X10'3 (4.5-11.0)
--- NOTE | 2021-03-27 06:16 | NUR ---
Problems reprioritized. Patient report given, questions answered & plan of care reviewed with JB Urban.
[2021-03-27 06:28] LABS: ALANINE AMINOTRANSFERASE 18 U/L (12-78); ALBUMIN 1.8 G/DL (3.4-5.0); ALBUMIN/GLOBULIN RATIO 0.7 (1.1-1.5); ALKALINE PHOSPHATASE 136 IU/L (46-116); ANION GAP 12 (8-16); ASPARTATE AMINO TRANSFERASE 52 U/L (10-37); BILIRUBIN,TOTAL 1.9 MG/DL (0.1-1.0); BLOOD UREA NITROGEN 18 MG/DL (7-18); BUN/CREATININE RATIO 8.5 (6.6-38.0); CALCIUM 6.7 MG/DL (8.5-10.1); CHLORIDE 105 MMOL/L (99-107); CREATININE 2.12 MG/DL (0.40-0.90); GLUCOSE 96 MG/DL (70-104); MAGNESIUM 1.8 MG/DL (1.5-2.4); SODIUM 132 MMOL/L (135-145); TOTAL CARBON DIOXIDE 15.4 MMOL/L (24-32); TOTAL PROTEIN 4.3 G/DL (6.4-8.2); eGFR 24 ML/MIN
--- NOTE | 2021-03-27 06:31 | NUR ---
Patient in room PCU 3028. I have received report from petrona garibay and had the opportunity to ask questions and assume patient care.
[2021-03-27 06:46] LABS: POTASSIUM 2.9 MMOL/L (3.5-5.1)
[2021-03-27 07:00] VITALS: BP 93/64
[2021-03-27 07:03] LABS: ANISOCYTOSIS 2+; PLATELET ESTIMATE DECREASED
[2021-03-27 07:05] LABS: LARGE PLATELETS FEW
[2021-03-27] MEDS: ceFAZolin/D5W- 1GM premix 50 ML IV SCH (07:50)
[2021-03-27] MEDS: docusate sod 100mg capsule PO SCH ×2 (07:50→20:00)
[2021-03-27] MEDS: rifaximin 550mg tablet PO SCH ×2 (07:50→19:52)
[2021-03-27] MEDS: thiamine 100mg tablet PO SCH (07:50)
[2021-03-27] MEDS: lactobacillus rhamnosus 10,000 MMU CELLS/CAPSULE PO SCH ×2 (07:50→19:52)
[2021-03-27] MEDS: levoTHYROXINE 25mcg tablet PO SCH (07:50)
[2021-03-27] MEDS: folic acid 1mg tablet PO SCH (07:51)
[2021-03-27] MEDS: multivitamins, therapeutics tablet PO SCH (07:51)
[2021-03-27] MEDS: pantoprazole 40mg Tablet.DR PO SCH (07:51)
[2021-03-27] MEDS: K and/or MAG REPLACEMENT MC SCH ×2 (08:00→20:00)
[2021-03-27] MEDS: lactulose 20gm/30ml cup PO SCH ×2 (08:00→19:51)
[2021-03-27 11:00] VITALS: BP 97/63
[2021-03-27] MEDS: dextrose 5%-1/2 normal saline 1,000 ML IV SCH (13:00)
[2021-03-27 15:00] VITALS: BP 94/62
[2021-03-27] MEDS: piperacillin/tazo 4.5gm/100ml 100 ML IV SCH ×2 (15:00→15:10)
[2021-03-27] MEDS: potassium Cl 40MEQ/1/2NS 520ml 520 ML IV PRN ×2 (17:03→22:50)
[2021-03-27 18:00] VITALS: BP 101/71
--- NOTE | 2021-03-27 18:15 | NUR ---
Patient in room PCU 3028. I have received report from JB Urban and had the opportunity to ask questions and assume patient care.
--- NOTE | 2021-03-27 18:48 | NUR ---
Problems reprioritized. Patient report given, questions answered & plan of care reviewed with petrona webb.
[2021-03-27] MEDS: LORazepam 2 mg/ml vial IV PRN ×2 (21:31→23:40)
--- NOTE | 2021-03-27 22:30 | NUR ---
Pt fell out of bed, trying to get out of bed. Pt was confused and tried to get up. Pt was not injured and was placed back in bed. After several more attempts, pt was placed in restraints.
[2021-03-27] MEDS: haloperidol lactate 5mg/ml inj IM PRN (23:39)
[2021-03-28] VITALS (8 sets, daily range): BP systolic 89–109; BP diastolic 55–85
[2021-03-28] MEDS: piperacillin/tazo 4.5gm/100ml 100 ML IV SCH ×4 (02:48→23:24)
[2021-03-28] MEDS: lactulose 20gm/30ml cup PO SCH ×4 (02:48→23:24)
[2021-03-28] MEDS: LORazepam 2 mg/ml vial IV PRN ×2 (02:53→23:54)
[2021-03-28] MEDS: dextrose 5%-1/2 normal saline 1,000 ML IV SCH ×2 (03:05→15:40)
[2021-03-28 05:58] LABS: BASOPHILS % (AUTO) 0.6 % (0-1); EOSINOPHILS # (AUTO) 0.1 X10'3 (0-0.9); EOSINOPHILS % (AUTO) 1.9 % (0-6); HEMATOCRIT 25.5 % (35.0-45.0); HEMOGLOBIN 8.3 g/dl (12.0-16.0); LYMPHOCYTES # (AUTO) 0.7 X10'3 (1.1-4.8); LYMPHOCYTES % (AUTO) 14.6 % (21-51); MEAN CORPUSCULAR HEMOGLOBIN 30.7 PG (27.0-31.0); MEAN CORPUSCULAR HGB CONC 32.7 g/dL (33.0-36.5); MEAN CORPUSCULAR VOLUME 93.7 FL (78-98); MEAN PLATELET VOLUME 8.2 FL (7.4-10.4); MONOCYTES # (AUTO) 0.6 X10'3 (0-0.9); MONOCYTES % (AUTO) 12.7 % (2-12); NEUTROPHILS # (AUTO) 3.3 X10'3 (1.8-7.7); NEUTROPHILS % (AUTO) 70.2 % (42-75); PLATELET COUNT 63 X10'3 (140-440); RED BLOOD COUNT 2.72 X10'6 (4.20-5.60); RED CELL DISTRIBUTION WIDTH 18.1 % (11.5-14.5); WHITE BLOOD COUNT 4.7 X10'3 (4.5-11.0)
[2021-03-28 06:26] LABS: ALBUMIN/GLOBULIN RATIO 0.7 (1.1-1.5); ALKALINE PHOSPHATASE 154 IU/L (46-116); ANION GAP 11 (8-16); ASPARTATE AMINO TRANSFERASE 66 U/L (10-37); BILIRUBIN,TOTAL 2.6 MG/DL (0.1-1.0); BLOOD UREA NITROGEN 16 MG/DL (7-18); BUN/CREATININE RATIO 7.5 (6.6-38.0); CALCIUM 7.2 MG/DL (8.5-10.1); CHLORIDE 106 MMOL/L (99-107); CREATININE 2.14 MG/DL (0.40-0.90); GLUCOSE 70 MG/DL (70-104); MAGNESIUM 1.8 MG/DL (1.5-2.4); POTASSIUM 3.9 MMOL/L (3.5-5.1); SODIUM 131 MMOL/L (135-145); TOTAL PROTEIN 4.8 G/DL (6.4-8.2); eGFR 24 ML/MIN
--- NOTE | 2021-03-28 06:26 | NUR ---
Problems reprioritized. Patient report given, questions answered & plan of care reviewed with JB Harris.
[2021-03-28 06:32] LABS: TOTAL CARBON DIOXIDE 13.8 MMOL/L (24-32)
[2021-03-28 06:35] LABS: ALANINE AMINOTRANSFERASE 18 U/L (12-78)
--- NOTE | 2021-03-28 06:35 | NUR ---
Patient in room PCU 3028. I have received report from JB Sousa and had the opportunity to ask questions and assume patient care.
--- NOTE | 2021-03-28 06:46 | NUR ---
Critical lab: CO2 13.8-Called Dr. Ross, no answer. Reported result to charge nurse.
--- NOTE | 2021-03-28 07:22 | NUR ---
Patient in room PCU 3028. I have received report from Merry MUHAMMAD and had the opportunity to ask questions and assume patient care. Patient resting in bed in restraints, confused but in no acute distress.
--- NOTE | 2021-03-28 07:23 | NUR ---
Page Sent to Dr. VIZCAINO promotional table spacer PAGER ID: [phone] MESSAGE: [id number] Selena. Critical CO2 13.8. Kimberly [phone]
[2021-03-28] MEDS: docusate sod 100mg capsule PO SCH ×2 (08:00→19:52)
[2021-03-28] MEDS: K and/or MAG REPLACEMENT MC SCH ×2 (08:00→19:50)
[2021-03-28] MEDS ORDERED: albumin (human) 25% 100 ML IV solution IV ONE (09:15)
[2021-03-28] MEDS: rifaximin 550mg tablet PO SCH ×2 (10:29→19:56)
[2021-03-28] MEDS: folic acid 1mg tablet PO SCH (10:29)
[2021-03-28] MEDS: lactobacillus rhamnosus 10,000 MMU CELLS/CAPSULE PO SCH ×2 (10:29→19:56)
[2021-03-28] MEDS: pantoprazole 40mg Tablet.DR PO SCH (10:30)
[2021-03-28] MEDS: multivitamins, therapeutics tablet PO SCH (10:30)
[2021-03-28] MEDS: thiamine 100mg tablet PO SCH (10:30)
[2021-03-28] MEDS: levoTHYROXINE 25mcg tablet PO SCH (10:30)
[2021-03-28 11:49] LABS: LYMPHOCYTES,BODY FLUID 10 %; MONOCYTES,BODY FLUID 18 %; NEUTROPHILS,BODY FLUID 72 %
[2021-03-28 11:50] LABS: BF MESOTHELIAL CELLS FEW; BF RBC COUNT 121 /CU MM; BF WBC COUNT 325 /CU MM (0-1000); BFAPPEAR HAZY; BFCOLOR YELLOW; BFVOLUME 58 ML
[2021-03-28 12:36] LABS: TOTAL PROTEIN,BODY FLUID < 2.0 G/DL
--- NOTE | 2021-03-28 14:33 | NUR ---
5712H Selena. Patient has order for ABG. Thanks Kimberly [phone]
[2021-03-28 15:55] LABS: ABG BASE EXCESS -10.5 mmol/L (-2.0-2.0); ABG HCO3 12.1 mmol/L (22.0-26.0); ABG OXYGEN SATURATION 98.7 % (94-97); ABG PCO2 (T) 18.1 mmHg (32.0-45.0); ABG PO2 (T) 161.2 mmHg (75.0-100.0); FCOHb 0.1 % (0.0-3.9); FMetHb 0.3 % (0.0-1.5); FO2Hb 98.3 % (94-97); TOTAL HEMOGLOBIN 8.1 G/dl (12.0-16.0)
--- NOTE | 2021-03-28 18:27 | NUR ---
Problems reprioritized. Patient report given, questions answered & plan of care reviewed with Phylicia RN . Patient in no acute distress.
--- NOTE | 2021-03-28 18:30 | NUR ---
Patient in room PCU 3028. I have received report from Kimberly MUHAMMAD at bedside and had the opportunity to ask questions and assume patient care.
[2021-03-28] MEDS: LORazepam 1 MG tablet PO PRN (21:03)
[2021-03-28] MEDS: haloperidol lactate 5mg/ml inj IM PRN (22:48)
[2021-03-29 02:00] VITALS: BP 97/68
[2021-03-29] MEDS: dextrose 5%-1/2 normal saline 1,000 ML IV SCH ×2 (05:00→18:20)
[2021-03-29 06:00] VITALS: BP 136/81
[2021-03-29 06:09] LABS: BASOPHILS % (AUTO) 0.6 % (0-1); EOSINOPHILS # (AUTO) 0.1 X10'3 (0-0.9); EOSINOPHILS % (AUTO) 2.1 % (0-6); HEMATOCRIT 22.4 % (35.0-45.0); HEMOGLOBIN 7.5 g/dl (12.0-16.0); LYMPHOCYTES # (AUTO) 0.5 X10'3 (1.1-4.8); LYMPHOCYTES % (AUTO) 17.9 % (21-51); MEAN CORPUSCULAR HEMOGLOBIN 30.8 PG (27.0-31.0); MEAN CORPUSCULAR HGB CONC 33.6 g/dL (33.0-36.5); MEAN CORPUSCULAR VOLUME 91.5 FL (78-98); MEAN PLATELET VOLUME 7.9 FL (7.4-10.4); MONOCYTES # (AUTO) 0.5 X10'3 (0-0.9); MONOCYTES % (AUTO) 15.9 % (2-12); NEUTROPHILS # (AUTO) 1.9 X10'3 (1.8-7.7); NEUTROPHILS % (AUTO) 63.5 % (42-75); PLATELET COUNT 61 X10'3 (140-440); RED BLOOD COUNT 2.45 X10'6 (4.20-5.60); RED CELL DISTRIBUTION WIDTH 17.5 % (11.5-14.5)
[2021-03-29 06:17] LABS: ALANINE AMINOTRANSFERASE 12 U/L (12-78); ALBUMIN/GLOBULIN RATIO 0.8 (1.1-1.5); ALKALINE PHOSPHATASE 152 IU/L (46-116); ANION GAP 12 (8-16); ASPARTATE AMINO TRANSFERASE 64 U/L (10-37); BILIRUBIN,TOTAL 2.2 MG/DL (0.1-1.0); BLOOD UREA NITROGEN 17 MG/DL (7-18); BUN/CREATININE RATIO 8.7 (6.6-38.0); CALCIUM 7.1 MG/DL (8.5-10.1); CHLORIDE 109 MMOL/L (99-107); CREATININE 1.95 MG/DL (0.40-0.90); GLUCOSE 77 MG/DL (70-104); MAGNESIUM 1.6 MG/DL (1.5-2.4); POTASSIUM 3.2 MMOL/L (3.5-5.1); SODIUM 136 MMOL/L (135-145); TOTAL CARBON DIOXIDE 15.2 MMOL/L (24-32); TOTAL PROTEIN 4.5 G/DL (6.4-8.2); eGFR 27 ML/MIN
--- NOTE | 2021-03-29 06:30 | NUR ---
Problems reprioritized. Patient report given, questions answered & plan of care reviewed with Cameron RN at bedside.
--- NOTE | 2021-03-29 06:31 | NUR ---
Patient in room PCU 3028. I have received report from Phylicia MUHAMMAD and had the opportunity to ask questions and assume patient care.
[2021-03-29] MEDS ORDERED: levoFLOXACIN-Levaquin 750MG/D5 150 ML IV SCH (06:56)
[2021-03-29 07:24] LABS: ANISOCYTOSIS 1+; PLATELET ESTIMATE DECREASED
[2021-03-29 07:25] LABS: POIKILOCYTOSIS 1+; SCHISTOCYTES FEW
[2021-03-29] MEDS: K and/or MAG REPLACEMENT MC SCH ×3 (08:00→19:13)
[2021-03-29] MEDS: docusate sod 100mg capsule PO SCH ×2 (08:00→18:49)
[2021-03-29] MEDS ORDERED: potassium Cl 40MEQ/1/2NS 520ml 520 ML IV PRN (08:30)
[2021-03-29] MEDS ORDERED: magnesium Cl slow-release 64mg tablet PO PRN (08:30)
[2021-03-29] MEDS ORDERED: magnesium 4gm in 100ml NS 100 ML IV PRN (08:30)
[2021-03-29] MEDS ORDERED: potassium Cl 20 mEq SR tablet PO PRN (08:30)
[2021-03-29] MEDS: pantoprazole 40mg Tablet.DR PO SCH (09:07)
[2021-03-29] MEDS: folic acid 1mg tablet PO SCH (09:07)
[2021-03-29] MEDS: levoTHYROXINE 25mcg tablet PO SCH (09:07)
[2021-03-29] MEDS: thiamine 100mg tablet PO SCH (09:08)
[2021-03-29] MEDS: lactulose 20gm/30ml cup PO SCH ×2 (09:08→15:15)
[2021-03-29] MEDS: potassium Cl 20 mEq SR tablet PO PRN ×3 (09:08→19:17)
[2021-03-29] MEDS: multivitamins, therapeutics tablet PO SCH (09:08)
[2021-03-29] MEDS: lactobacillus rhamnosus 10,000 MMU CELLS/CAPSULE PO SCH ×2 (09:08→19:17)
[2021-03-29] MEDS: rifaximin 550mg tablet PO SCH ×2 (09:23→19:18)
--- NOTE | 2021-03-29 09:49 | NUR ---
Initial: Pt admitted w/ abdominal pain and ALOC per EMR. Pt still has moderate abdominal pain which is likely affecting PO intake. Pt has been on Clear liquid diet since 03/25, avg 21% x 7 meals not meeting needs. Pt noted to be confused at times and requires assistance w/ feeding. No N/V/D noted, LBM 03/28. Will continue to monitor. Recommend 1. Advance diet as medically indicated 2. Ensure Clear TID to provide 720kcals and 24g protein if consumed 100% 3. Routine Thiamine and Folic acid 4. Bowel care per rx 5. Weekly wts Addendum: 03/29/21 at [address] Amended: Links added.
[2021-03-29] MEDS: CefTRIAXone 2gm/D5W 50ml BAG 50 ML IV SCH (11:12)
[2021-03-29] MEDS: NUT.TX.IMPAIRED DIGEST FXN (Ensure Clear) 237 ML PO SCH ×2 (13:00→18:00)
[2021-03-29 15:00] VITALS: BP 111/70
[2021-03-29 18:00] VITALS: BP 105/76
--- NOTE | 2021-03-29 18:19 | NUR ---
Problems reprioritized. Patient report given, questions answered & plan of care reviewed with Phylicia MUHAMMAD.
--- NOTE | 2021-03-29 18:28 | NUR ---
Patient in room PCU 3028. I have received report from Cameron MUHAMMAD at bedside and had the opportunity to ask questions and assume patient care.
[2021-03-29] MEDS: LORazepam 1 MG tablet PO PRN (20:51)
[2021-03-29] MEDS ORDERED: LORazepam 1 MG tablet PO PRN (21:00)
[2021-03-29 22:00] VITALS: BP 115/65
[2021-03-29] MEDS: LORazepam 2 mg/ml vial IV PRN (22:15)
[2021-03-30] MEDS: lactulose 20gm/30ml cup PO SCH ×4 (00:43→23:27)
[2021-03-30] MEDS: LORazepam 2 mg/ml vial IV PRN ×2 (00:43→19:25)
[2021-03-30 02:00] VITALS: BP 108/74
[2021-03-30] MEDS: dextrose 5%-1/2 normal saline 1,000 ML IV SCH ×2 (04:09→21:00)
--- NOTE | 2021-03-30 06:00 | NUR ---
Patient in room PCU 3028. I have received report from STUART MUHAMMAD and had the opportunity to ask questions and assume patient care.
[2021-03-30 06:09] LABS: BASOPHILS % (AUTO) 0.4 % (0-1); EOSINOPHILS # (AUTO) 0.1 X10'3 (0-0.9); EOSINOPHILS % (AUTO) 2.4 % (0-6); HEMATOCRIT 22.8 % (35.0-45.0); HEMOGLOBIN 7.6 g/dl (12.0-16.0); LYMPHOCYTES # (AUTO) 0.6 X10'3 (1.1-4.8); MEAN CORPUSCULAR HEMOGLOBIN 30.8 PG (27.0-31.0); MEAN CORPUSCULAR HGB CONC 33.4 g/dL (33.0-36.5); MEAN CORPUSCULAR VOLUME 92.4 FL (78-98); MONOCYTES # (AUTO) 0.5 X10'3 (0-0.9); MONOCYTES % (AUTO) 18.2 % (2-12); NEUTROPHILS # (AUTO) 1.7 X10'3 (1.8-7.7); PLATELET COUNT 67 X10'3 (140-440); RED BLOOD COUNT 2.46 X10'6 (4.20-5.60); RED CELL DISTRIBUTION WIDTH 17.9 % (11.5-14.5); WHITE BLOOD COUNT 2.9 X10'3 (4.5-11.0)
[2021-03-30 06:26] LABS: ALANINE AMINOTRANSFERASE 13 U/L (12-78); ALBUMIN/GLOBULIN RATIO 0.8 (1.1-1.5); ALKALINE PHOSPHATASE 153 IU/L (46-116); ANION GAP 14 (8-16); ASPARTATE AMINO TRANSFERASE 70 U/L (10-37); BILIRUBIN,TOTAL 1.6 MG/DL (0.1-1.0); BLOOD UREA NITROGEN 14 MG/DL (7-18); BUN/CREATININE RATIO 8.2 (6.6-38.0); CALCIUM 7.2 MG/DL (8.5-10.1); CHLORIDE 107 MMOL/L (99-107); CREATININE 1.71 MG/DL (0.40-0.90); GLUCOSE 82 MG/DL (70-104); MAGNESIUM 1.6 MG/DL (1.5-2.4); POTASSIUM 3.2 MMOL/L (3.5-5.1); SODIUM 133 MMOL/L (135-145); TOTAL PROTEIN 4.6 G/DL (6.4-8.2); eGFR 31 ML/MIN
--- NOTE | 2021-03-30 06:30 | NUR ---
Problems reprioritized. Patient report given, questions answered & plan of care reviewed with Farzana RN at bedside.
[2021-03-30 06:36] LABS: TOTAL CARBON DIOXIDE 12.4 MMOL/L (24-32)
[2021-03-30] MEDS: K and/or MAG REPLACEMENT MC SCH ×4 (07:44→19:41)
[2021-03-30 07:54] VITALS: BP 104/65
[2021-03-30] MEDS: rifaximin 550mg tablet PO SCH ×2 (08:37→19:41)
[2021-03-30] MEDS: docusate sod 100mg capsule PO SCH ×2 (08:37→19:41)
[2021-03-30] MEDS: folic acid 1mg tablet PO SCH (08:37)
[2021-03-30] MEDS: levoTHYROXINE 25mcg tablet PO SCH (08:37)
[2021-03-30] MEDS: CefTRIAXone 2gm/D5W 50ml BAG 50 ML IV SCH (08:38)
[2021-03-30] MEDS: thiamine 100mg tablet PO SCH (08:38)
[2021-03-30] MEDS: lactobacillus rhamnosus 10,000 MMU CELLS/CAPSULE PO SCH ×2 (08:38→19:41)
[2021-03-30] MEDS: pantoprazole 40mg Tablet.DR PO SCH (08:38)
[2021-03-30] MEDS: multivitamins, therapeutics tablet PO SCH (08:38)
[2021-03-30 09:11] LABS: ANISOCYTOSIS 1+; PLATELET ESTIMATE DECREASED; TOTAL CELLS COUNTED 100
[2021-03-30 09:12] LABS: ELLIPTOCYTES FEW; SCHISTOCYTES FEW
[2021-03-30 12:32] VITALS: BP 110/76
[2021-03-30 16:12] VITALS: BP 106/68
[2021-03-30 18:00] VITALS: BP 104/65
--- NOTE | 2021-03-30 18:33 | NUR ---
Patient in room PCU 3028. I have received report from Farzana JB and had the opportunity to ask questions and assume patient care.
[2021-03-30] MEDS: potassium Cl 20 mEq SR tablet PO PRN ×2 (19:47→23:27)
[2021-03-30 22:00] VITALS: BP 113/74
[2021-03-31] VITALS (7 sets, daily range): BP systolic 95–141; BP diastolic 52–80
[2021-03-31] MEDS: potassium Cl 20 mEq SR tablet PO PRN (03:37)
--- NOTE | 2021-03-31 03:37 | NUR ---
Patient refusing last potassium medication for protocol.
[2021-03-31] MEDS: dextrose 5%-1/2 normal saline 1,000 ML IV SCH ×2 (05:25→22:26)
--- NOTE | 2021-03-31 06:32 | NUR ---
Problems reprioritized. Patient report given, questions answered & plan of care reviewed with Camille MUHAMMAD.
[2021-03-31 06:41] LABS: MAGNESIUM 1.5 MG/DL (1.5-2.4); POTASSIUM 3.5 MMOL/L (3.5-5.1)
--- NOTE | 2021-03-31 06:45 | NUR ---
Patient in room PCU 3028. I have received report from Angelita russ and had the opportunity to ask questions and assume patient care.
[2021-03-31] MEDS: docusate sod 100mg capsule PO SCH ×3 (08:00→20:41)
[2021-03-31] MEDS: K and/or MAG REPLACEMENT MC SCH ×4 (08:00→18:57)
[2021-03-31] MEDS: rifaximin 550mg tablet PO SCH ×2 (08:12→20:41)
[2021-03-31] MEDS: pantoprazole 40mg Tablet.DR PO SCH (08:13)
[2021-03-31] MEDS: thiamine 100mg tablet PO SCH (08:13)
[2021-03-31] MEDS: folic acid 1mg tablet PO SCH (08:13)
[2021-03-31] MEDS: lactobacillus rhamnosus 10,000 MMU CELLS/CAPSULE PO SCH ×2 (08:14→20:41)
[2021-03-31] MEDS: levoTHYROXINE 25mcg tablet PO SCH (08:14)
[2021-03-31] MEDS: multivitamins, therapeutics tablet PO SCH (08:14)
[2021-03-31] MEDS: lactulose 20gm/30ml cup PO SCH ×3 (08:15→23:40)
[2021-03-31] MEDS: CefTRIAXone 2gm/D5W 50ml BAG 50 ML IV SCH (08:15)
--- NOTE | 2021-03-31 18:00 | NUR ---
Patient in room PCU 3028. I have received report from pawan russ and had the opportunity to ask questions and assume patient care.
--- NOTE | 2021-03-31 21:30 | NUR ---
restraint order renewed, md de la torre
[2021-04-01 02:00] VITALS: BP 104/62
[2021-04-01 06:00] VITALS: BP 101/66
[2021-04-01 06:18] LABS: MAGNESIUM 1.5 MG/DL (1.5-2.4); POTASSIUM 3.2 MMOL/L (3.5-5.1)
[2021-04-01] MEDS: K and/or MAG REPLACEMENT MC SCH ×3 (08:00→19:19)
[2021-04-01] MEDS: docusate sod 100mg capsule PO SCH ×2 (08:00→20:00)
[2021-04-01] MEDS: lactulose 20gm/30ml cup PO SCH ×2 (08:16→16:20)
[2021-04-01] MEDS: thiamine 100mg tablet PO SCH (08:16)
[2021-04-01] MEDS: CefTRIAXone 2gm/D5W 50ml BAG 50 ML IV SCH (08:16)
[2021-04-01] MEDS: lactobacillus rhamnosus 10,000 MMU CELLS/CAPSULE PO SCH ×2 (08:16→20:00)
[2021-04-01] MEDS: potassium Cl 20 mEq SR tablet PO PRN (08:17)
[2021-04-01] MEDS: folic acid 1mg tablet PO SCH (08:17)
[2021-04-01] MEDS: rifaximin 550mg tablet PO SCH ×2 (08:17→20:00)
[2021-04-01] MEDS: pantoprazole 40mg Tablet.DR PO SCH (08:17)
[2021-04-01] MEDS: multivitamins, therapeutics tablet PO SCH (08:17)
[2021-04-01] MEDS: levoTHYROXINE 25mcg tablet PO SCH (09:43)
[2021-04-01 10:03] LABS: GLUCOSE 80 MG/DL (70-104); SODIUM 136 MMOL/L (135-145)
[2021-04-01 10:04] LABS: ALANINE AMINOTRANSFERASE 16 U/L (12-78); ALBUMIN 2.4 G/DL (3.4-5.0); ALBUMIN/GLOBULIN RATIO 0.8 (1.1-1.5); ALKALINE PHOSPHATASE 168 IU/L (46-116); ANION GAP 13 (8-16); ASPARTATE AMINO TRANSFERASE 74 U/L (10-37); BILIRUBIN,TOTAL 1.9 MG/DL (0.1-1.0); BLOOD UREA NITROGEN 13 MG/DL (7-18); BUN/CREATININE RATIO 7.1 (6.6-38.0); CALCIUM 7.6 MG/DL (8.5-10.1); CHLORIDE 110 MMOL/L (99-107); CREATININE 1.84 MG/DL (0.40-0.90); TOTAL CARBON DIOXIDE 12.9 MMOL/L (24-32); TOTAL PROTEIN 5.3 G/DL (6.4-8.2); eGFR 28 ML/MIN
--- NOTE | 2021-04-01 10:10 | NUR ---
Dr. Shaver paged: Justine Danielle [id number]: Critical CO2 12.9. Up from 12.4 on 03/30. [id number]
[2021-04-01] MEDS ORDERED: magnesium 4gm in 100ml NS 100 ML IV PRN (10:15)
[2021-04-01] MEDS ORDERED: potassium Cl 20 mEq SR tablet PO PRN ×2 (10:15)
[2021-04-01] MEDS ORDERED: magnesium Cl slow-release 64mg tablet PO PRN (10:15)
[2021-04-01 11:00] VITALS: BP 103/65
--- NOTE | 2021-04-01 11:11 | NUR ---
Reassessment: Pt remains A/O x 2 and confused per physical assessment. Diet has been advanced to full liquids and pt not eating well despite receiving total assistance with meals. Pt initially with 25% PO intake once diet was advanced however more recently with 0-25% PO intake. Noted pt resistive to care per physical assessment. ONS may not be appropriate at this time given patient's poor acceptance to food. IF PO intake does not improve pt would benefit from EN to assist with meeting estimated nutrient needs. Noted pt s/p paracentesis 03/28 with 4 L fluid removed per report. Current documented wt in EMR is not scaled though wt likely to fluctuate d/t changes in fluid status. Noted pt receiving routine Thiamine, Folic acid, and MVI for EtOH hx. LBM 03/31 documented with diarrhea and with a rectal tube, with 800 mL stool output per I&O. Diarrhea likely r/t routine Lactulose. Noted serum ammonia remains elevated. Will continue to follow closely and make recommendations as appropriate. Recommend 1. Advance to regular diet as medically indicated 2. Encourage PO intake and assist with meals in view of encephalopathy 3. Monitor appropriateness for ONS; Consider Ensure Enlive if appropriate 4. Consider EN to assist with meeting estimated nutrient needs 5. Continue routine Thiamine, Folic acid, and MVI for EtOH hx 6. Bowel care per rx 7. Scaled weight this admit; weekly scaled weights thereafter Addendum: 04/01/21 at [address] Amended: Links added.
[2021-04-01] MEDS: dextrose 5%-1/2 normal saline 1,000 ML IV SCH (13:00)
[2021-04-01 15:00] VITALS: BP 119/74
--- NOTE | 2021-04-01 15:25 | NUR ---
Report received from NET WEB DEVELOPERInocencio
--- NOTE | 2021-04-01 16:30 | NUR ---
Problems reprioritized. Patient report given, questions answered & plan of care reviewed with Parvin MUHAMMAD on Med/Surg. Pt was transfered to M/S unit Rm 356B in hospital bed by staff and was accompanied by family as well.
[2021-04-01 16:35] VITALS: BP 102/68
--- NOTE | 2021-04-01 18:40 | NUR ---
Problems reprioritized. Patient report given, questions answered & plan of care reviewed with Lizzie Samuel RN.
--- NOTE | 2021-04-01 18:45 | NUR ---
Patient in room GLEN 356. I have received report from KERRIE MUHAMMAD and had the opportunity to ask questions and assume patient care.
[2021-04-01] MEDS: potassium Cl 40MEQ/1/2NS 520ml 520 ML IV PRN (19:43)
[2021-04-01 20:00] VITALS: BP 104/70
[2021-04-01] MEDS: morphine 2 MG/ML inj. syringe IV PRN (21:02)
[2021-04-02] VITALS: BP 119/84
[2021-04-02] MEDS: lactulose 20gm/30ml cup PO SCH ×3 (00:39→16:00)
[2021-04-02] MEDS: dextrose 5%-1/2 normal saline 1,000 ML IV SCH ×2 (02:02→15:40)
[2021-04-02] MEDS: morphine 2 MG/ML inj. syringe IV PRN ×2 (05:34→19:15)
--- NOTE | 2021-04-02 06:30 | NUR ---
Problems reprioritized. Patient report given, questions answered & plan of care reviewed with LAURA MUHAMMAD.
[2021-04-02 07:00] VITALS: BP 96/63
--- NOTE | 2021-04-02 07:00 | NUR ---
Patient in room GLEN 356. I have received report from Loyda MUHAMMAD and had the opportunity to ask questions and assume patient care.
[2021-04-02] MEDS: lactobacillus rhamnosus 10,000 MMU CELLS/CAPSULE PO SCH ×2 (08:00→20:00)
[2021-04-02] MEDS: K and/or MAG REPLACEMENT MC SCH ×2 (08:00→20:00)
[2021-04-02] MEDS: rifaximin 550mg tablet PO SCH ×2 (08:00→20:00)
[2021-04-02] MEDS: multivitamins, therapeutics tablet PO SCH (08:00)
[2021-04-02] MEDS: docusate sod 100mg capsule PO SCH ×2 (08:00→20:00)
[2021-04-02] MEDS: thiamine inj. 100 MG in normal saline 100ml IV soln 100 ML IV SCH (09:10)
[2021-04-02] MEDS: levoTHYROXINE sod inj. 100mcg/5 ml vial IV SCH (09:14)
[2021-04-02] MEDS: folic acid 1mg/0.2ml inj IV SCH (09:33)
[2021-04-02] MEDS: CefTRIAXone 2gm/D5W 50ml BAG 50 ML IV SCH (09:43)
[2021-04-02] MEDS ORDERED: Lactulose Enema **for rectal use only RC ONE ×2 (12:00)
[2021-04-02] MEDS: sodium bicarbonate (8.4%) inj. 100 MEQ in dextrose 5%-water 1,000 ML IV SCH (12:30)
[2021-04-02] MEDS: pantoprazole 40 MG vial IV SCH (12:33)
[2021-04-02] MEDS: NUT.TX.IMPAIRED DIGEST FXN (Ensure Clear) 237 ML PO SCH (18:00)
--- NOTE | 2021-04-02 18:46 | NUR ---
Patient in room LGEN 356. I have received report from JB Davies and had the opportunity to ask questions and assume patient care.
[2021-04-02 19:00] VITALS: BP 98/56
--- NOTE | 2021-04-02 19:29 | NUR ---
patient appears obtunded alot of shifty woke up enough to take one dose of lactulose, Lactulose enema given via rectal tube in PM. Patient unable to eat or drink today. Daughter at bedside. seen by DR Varela. Report given to Hillary MUHAMMAD
[2021-04-03] VITALS: BP 93/46
[2021-04-03] MEDS: lactulose 20gm/30ml cup PO SCH ×3 (00:30→15:48)
[2021-04-03] MEDS: morphine 2 MG/ML inj. syringe IV PRN ×3 (01:12→21:15)
[2021-04-03] MEDS: dextrose 5%-1/2 normal saline 1,000 ML IV SCH (01:52)
--- NOTE | 2021-04-03 06:18 | NUR ---
Problems reprioritized. Patient report given, questions answered & plan of care reviewed with JB Ramírez.
[2021-04-03] MEDS: folic acid 1mg/0.2ml inj IV SCH (07:16)
[2021-04-03] MEDS: pantoprazole 40 MG vial IV SCH (07:18)
[2021-04-03] MEDS: levoTHYROXINE sod inj. 100mcg/5 ml vial IV SCH (07:20)
[2021-04-03] MEDS: thiamine inj. 100 MG in normal saline 100ml IV soln 100 ML IV SCH (07:23)
[2021-04-03] MEDS: NUT.TX.IMPAIRED DIGEST FXN (Ensure Clear) 237 ML PO SCH ×3 (07:24→18:00)
[2021-04-03] MEDS: lactobacillus rhamnosus 10,000 MMU CELLS/CAPSULE PO SCH ×2 (07:24→20:00)
[2021-04-03] MEDS: rifaximin 550mg tablet PO SCH ×2 (07:24→20:00)
[2021-04-03] MEDS: multivitamins, therapeutics tablet PO SCH (07:24)
[2021-04-03] MEDS: docusate sod 100mg capsule PO SCH ×2 (07:24→20:00)
[2021-04-03] MEDS: K and/or MAG REPLACEMENT MC SCH ×2 (07:24→20:00)
[2021-04-03 07:30] VITALS: BP 107/65
[2021-04-03] MEDS: CefTRIAXone 2gm/D5W 50ml BAG 50 ML IV SCH (08:02)
[2021-04-03 08:53] LABS: BASOPHILS # (AUTO) 0.1 X10'3 (0-0.2); BASOPHILS % (AUTO) 0.9 % (0-1); EOSINOPHILS # (AUTO) 0.1 X10'3 (0-0.9); EOSINOPHILS % (AUTO) 1.2 % (0-6); HEMOGLOBIN 7.2 g/dl (12.0-16.0); LYMPHOCYTES # (AUTO) 0.9 X10'3 (1.1-4.8); LYMPHOCYTES % (AUTO) 14.7 % (21-51); MEAN CORPUSCULAR HEMOGLOBIN 30.8 PG (27.0-31.0); MEAN CORPUSCULAR HGB CONC 33.8 g/dL (33.0-36.5); MEAN CORPUSCULAR VOLUME 91.2 FL (78-98); MEAN PLATELET VOLUME 7.8 FL (7.4-10.4); MONOCYTES # (AUTO) 0.6 X10'3 (0-0.9); MONOCYTES % (AUTO) 9.7 % (2-12); NEUTROPHILS # (AUTO) 4.5 X10'3 (1.8-7.7); NEUTROPHILS % (AUTO) 73.5 % (42-75); PLATELET COUNT 82 X10'3 (140-440); RED BLOOD COUNT 2.33 X10'6 (4.20-5.60); RED CELL DISTRIBUTION WIDTH 17.4 % (11.5-14.5); WHITE BLOOD COUNT 6.1 X10'3 (4.5-11.0)
[2021-04-03 08:59] LABS: HEMATOCRIT 21.3 % (35.0-45.0)
[2021-04-03 09:03] LABS: ALANINE AMINOTRANSFERASE 14 U/L (12-78); ALBUMIN 1.9 G/DL (3.4-5.0); ALBUMIN/GLOBULIN RATIO 0.7 (1.1-1.5); ALKALINE PHOSPHATASE 141 IU/L (46-116); ANION GAP 14 (8-16); ASPARTATE AMINO TRANSFERASE 60 U/L (10-37); BILIRUBIN,TOTAL 1.7 MG/DL (0.1-1.0); BLOOD UREA NITROGEN 12 MG/DL (7-18); BUN/CREATININE RATIO 6.5 (6.6-38.0); CALCIUM 7.4 MG/DL (8.5-10.1); CHLORIDE 114 MMOL/L (99-107); CREATININE 1.86 MG/DL (0.40-0.90); GLUCOSE 84 MG/DL (70-104); POTASSIUM 3.1 MMOL/L (3.5-5.1); SODIUM 142 MMOL/L (135-145); TOTAL PROTEIN 4.5 G/DL (6.4-8.2); eGFR 28 ML/MIN
[2021-04-03 09:15] LABS: TOTAL CARBON DIOXIDE 14.1 MMOL/L (24-32)
[2021-04-03] MEDS ORDERED: Lactulose Enema **for rectal use only RC ONE ×2 (09:45)
[2021-04-03] MEDS: sodium bicarbonate (8.4%) inj. 100 MEQ in dextrose 5%-water 1,000 ML IV SCH ×2 (09:45→12:23)
[2021-04-03 12:10] VITALS: BP 111/71
[2021-04-03] MEDS: potassium Cl 40MEQ/1/2NS 520ml 520 ML IV PRN (13:24)
--- NOTE | 2021-04-03 15:51 | NUR ---
PAGER ID: [phone] MESSAGE: Jaime Walters: rectal tube came out. still no BM with the lactulose enema. thank you, desiree [phone] Addendum: 04/03/21 at 1820 by Desiree Gonzalez RN @[facility], said replace rectal tube and administer the rest of the enema.
[2021-04-03] MEDS: LORazepam 2 mg/ml vial IV PRN ×2 (15:57→22:25)
[2021-04-03 18:00] VITALS: BP 103/61
--- NOTE | 2021-04-03 18:10 | NUR ---
Patient in room GLEN 356. I have received report from JB Ramírez and had the opportunity to ask questions and assume patient care.
--- NOTE | 2021-04-03 18:14 | NUR ---
Problems reprioritized. Patient report given, questions answered & plan of care reviewed with Hillary Ramey RN.
--- NOTE | 2021-04-03 19:51 | NUR ---
Spoke with Leroy hayes to provide additional information.
[2021-04-04] VITALS: BP 104/62
[2021-04-04] MEDS: morphine 2 MG/ML inj. syringe IV PRN ×3 (03:11→20:42)
--- NOTE | 2021-04-04 06:27 | NUR ---
Problems reprioritized. Patient report given, questions answered & plan of care reviewed with JB Teresa.
--- NOTE | 2021-04-04 06:45 | NUR ---
Patient in room GLEN 356A. I have received report from JB GONZALEZ and had the opportunity to ask questions and assume patient care.
[2021-04-04 07:23] LABS: BASOPHILS % (AUTO) 0.8 % (0-1); EOSINOPHILS # (AUTO) 0.1 X10'3 (0-0.9); EOSINOPHILS % (AUTO) 1.1 % (0-6); HEMOGLOBIN 7.2 g/dl (12.0-16.0); LYMPHOCYTES # (AUTO) 1.1 X10'3 (1.1-4.8); LYMPHOCYTES % (AUTO) 19.6 % (21-51); MEAN CORPUSCULAR HEMOGLOBIN 30.2 PG (27.0-31.0); MEAN CORPUSCULAR HGB CONC 33.1 g/dL (33.0-36.5); MEAN CORPUSCULAR VOLUME 91.2 FL (78-98); MEAN PLATELET VOLUME 7.3 FL (7.4-10.4); MONOCYTES # (AUTO) 0.6 X10'3 (0-0.9); MONOCYTES % (AUTO) 10.4 % (2-12); NEUTROPHILS # (AUTO) 3.8 X10'3 (1.8-7.7); NEUTROPHILS % (AUTO) 68.1 % (42-75); PLATELET COUNT 75 X10'3 (140-440); RED BLOOD COUNT 2.39 X10'6 (4.20-5.60); RED CELL DISTRIBUTION WIDTH 17.3 % (11.5-14.5); WHITE BLOOD COUNT 5.6 X10'3 (4.5-11.0)
[2021-04-04 07:32] LABS: HEMATOCRIT 21.8 % (35.0-45.0)
[2021-04-04 07:40] LABS: ALANINE AMINOTRANSFERASE 15 U/L (12-78); ALBUMIN/GLOBULIN RATIO 0.8 (1.1-1.5); ALKALINE PHOSPHATASE 145 IU/L (46-116); ANION GAP 12 (8-16); ASPARTATE AMINO TRANSFERASE 61 U/L (10-37); BILIRUBIN,TOTAL 1.9 MG/DL (0.1-1.0); BLOOD UREA NITROGEN 13 MG/DL (7-18); BUN/CREATININE RATIO 7.1 (6.6-38.0); CALCIUM 7.3 MG/DL (8.5-10.1); CHLORIDE 113 MMOL/L (99-107); CREATININE 1.82 MG/DL (0.40-0.90); GLUCOSE 74 MG/DL (70-104); POTASSIUM 3.6 MMOL/L (3.5-5.1); SODIUM 142 MMOL/L (135-145); TOTAL CARBON DIOXIDE 16.7 MMOL/L (24-32); TOTAL PROTEIN 4.6 G/DL (6.4-8.2); eGFR 29 ML/MIN
--- NOTE | 2021-04-04 07:50 | NUR ---
CRITICAL HCT .8 PAGED PAGER ID: [phone] MESSAGE: LANIE DONNELLY 356A: FYI: CRITICAL HCT .
[2021-04-04] MEDS: docusate sod 100mg capsule PO SCH ×3 (08:00→20:00)
[2021-04-04] MEDS: rifaximin 550mg tablet PO SCH ×3 (08:00→20:00)
[2021-04-04] MEDS: K and/or MAG REPLACEMENT MC SCH ×2 (08:00→20:00)
[2021-04-04] MEDS: lactobacillus rhamnosus 10,000 MMU CELLS/CAPSULE PO SCH ×3 (08:00→20:00)
[2021-04-04] MEDS: thiamine inj. 100 MG in normal saline 100ml IV soln 100 ML IV SCH (10:25)
[2021-04-04] MEDS: levoTHYROXINE sod inj. 100mcg/5 ml vial IV SCH (10:25)
[2021-04-04] MEDS: lactulose 20gm/30ml cup PO SCH ×4 (10:26→22:35)
[2021-04-04] MEDS: pantoprazole 40 MG vial IV SCH (10:26)
[2021-04-04] MEDS: multivitamins, therapeutics tablet PO SCH (10:26)
[2021-04-04] MEDS: CefTRIAXone 2gm/D5W 50ml BAG 50 ML IV SCH (10:26)
[2021-04-04] MEDS: folic acid 1mg/0.2ml inj IV SCH (10:42)
[2021-04-04 11:00] VITALS: BP 89/52
--- NOTE | 2021-04-04 11:42 | NUR ---
Reassessment: Pt continues on full liquid diet and refusing most meals. Noted pt documented as A/O x 1, confused, and obtunded. Per direct chill casting operator 04/02 pt unable to eat or drink. Noted new order in EMR for NG tube placement. TC with zipper machine operator recommendations for pt to be NPO d/t obtundation and tube feeding via NG tube with MD approval given pt now ten days with insufficient PO intake. Per zipper machine operator, floor RNs have been withholding meals per RN discretion based on patient's level of consciousness. Pt would benefit from BSS with ST to determine appropriateness for PO intake at this time, d/w zipper machine operator. A page was also sent to MD with recommendation for TF. Given pt with inadequate PO intake for ten days and severe muscle weakness per EMR, pt meets criteria for severe malnutrition. LBM 04/03 with a rectal tube in place though per zipper machine operator pt not stooling. Pt given Lactulose enema and Colace, to receive Lactulose via NG tube once placed per MD note. Will continue to follow closely. Recommend 1. Advance to regular diet as medically indicated 2. Consider BSS with ST given pt A/O x 1, confused, and obtunded 3. Consider TF for estimated nutrient needs given prolonged poor PO intake and pt already getting an NG tube placed. IF TF, continuous Vital AF with goal rate of 55 mL/hr. To begin at 25 mL/hr and advance by 30 mL Q8H as tolerated 4. IF TF, additional water flush per MD given liver status 5. IF TF, prealbumin q Saturday/, daily weights 6. Continue routine Thiamine, Folic acid, and MVI for EtOH hx 7. Bowel care per rx 8. Scaled weight this admit; weekly scaled weights thereafter Addendum: 04/04/21 at [address] Amended: Links added.
[2021-04-04] MEDS: sodium bicarbonate (8.4%) inj. 100 MEQ in dextrose 5%-water 1,000 ML IV SCH (15:00)
[2021-04-04] MEDS: LORazepam 1 MG tablet PO PRN (17:46)
[2021-04-04 18:00] VITALS: BP 101/65
--- NOTE | 2021-04-04 18:45 | NUR ---
Problems reprioritized. Patient report given, questions answered & plan of care reviewed with JB GONZALEZ.
[2021-04-04] MEDS: LORazepam 2 mg/ml vial IV PRN (22:35)
[2021-04-05] VITALS (8 sets, daily range): BP systolic 95–115; BP diastolic 50–70
[2021-04-05] MEDS: LORazepam 2 mg/ml vial IV PRN ×2 (05:33→20:10)
--- NOTE | 2021-04-05 06:30 | NUR ---
Problems reprioritized. Patient report given, questions answered & plan of care reviewed with JB Teresa.
--- NOTE | 2021-04-05 06:45 | NUR ---
Patient in room GLEN 356A. I have received report from JB GONZALEZ and had the opportunity to ask questions and assume patient care.
[2021-04-05] MEDS: levoTHYROXINE sod inj. 100mcg/5 ml vial IV SCH (07:00)
[2021-04-05] MEDS: pantoprazole 40 MG vial IV SCH (07:30)
[2021-04-05] MEDS: folic acid 1mg/0.2ml inj IV SCH (08:00)
[2021-04-05] MEDS: lactobacillus rhamnosus 10,000 MMU CELLS/CAPSULE PO SCH ×2 (08:00→20:00)
[2021-04-05] MEDS: docusate sod 100mg capsule PO SCH ×2 (08:00→20:00)
[2021-04-05] MEDS: K and/or MAG REPLACEMENT MC SCH ×2 (08:00→20:00)
[2021-04-05] MEDS: multivitamins, therapeutics tablet PO SCH (08:00)
[2021-04-05] MEDS: CefTRIAXone 2gm/D5W 50ml BAG 50 ML IV SCH (08:00)
[2021-04-05] MEDS: rifaximin 550mg tablet PO SCH ×2 (08:00→20:00)
[2021-04-05 09:07] LABS: BASOPHILS % (AUTO) 0.4 % (0-1); EOSINOPHILS % (AUTO) 0.6 % (0-6); HEMATOCRIT 22.5 % (35.0-45.0); HEMOGLOBIN 7.4 g/dl (12.0-16.0); LYMPHOCYTES # (AUTO) 0.9 X10'3 (1.1-4.8); LYMPHOCYTES % (AUTO) 15.2 % (21-51); MEAN CORPUSCULAR HEMOGLOBIN 30.8 PG (27.0-31.0); MEAN CORPUSCULAR HGB CONC 32.9 g/dL (33.0-36.5); MEAN CORPUSCULAR VOLUME 93.5 FL (78-98); MEAN PLATELET VOLUME 8.2 FL (7.4-10.4); MONOCYTES # (AUTO) 0.5 X10'3 (0-0.9); MONOCYTES % (AUTO) 9.1 % (2-12); NEUTROPHILS # (AUTO) 4.4 X10'3 (1.8-7.7); NEUTROPHILS % (AUTO) 74.7 % (42-75); PLATELET COUNT 78 X10'3 (140-440); RED BLOOD COUNT 2.41 X10'6 (4.20-5.60); RED CELL DISTRIBUTION WIDTH 17.3 % (11.5-14.5); WHITE BLOOD COUNT 5.9 X10'3 (4.5-11.0)
[2021-04-05 09:26] LABS: ALBUMIN 2.1 G/DL (3.4-5.0); ANION GAP 12 (8-16); BLOOD UREA NITROGEN 14 MG/DL (7-18); BUN/CREATININE RATIO 6.6 (6.6-38.0); CALCIUM 7.6 MG/DL (8.5-10.1); CHLORIDE 116 MMOL/L (99-107); CREATININE 2.12 MG/DL (0.40-0.90); GLUCOSE 84 MG/DL (70-104); POTASSIUM 3.5 MMOL/L (3.5-5.1); SODIUM 147 MMOL/L (135-145); TOTAL CARBON DIOXIDE 18.7 MMOL/L (24-32); eGFR 24 ML/MIN
[2021-04-05] MEDS: lactulose 20gm/30ml cup PO SCH ×2 (10:29→16:00)
[2021-04-05] MEDS: thiamine inj. 100 MG in normal saline 100ml IV soln 100 ML IV SCH (10:29)
[2021-04-05] MEDS: LORazepam 1 MG tablet PO PRN (12:00)
[2021-04-05] MEDS ORDERED: albumin (human) 25% 100 ML IV solution IV ONE (13:15)
[2021-04-05] MEDS ORDERED: Lactulose Enema **for rectal use only RC ONE ×2 (14:50)
[2021-04-05] MEDS ORDERED: Lactulose Enema **for rectal use only RC PRN ×2 (14:50)
--- NOTE | 2021-04-05 19:25 | NUR ---
Patient in room GLEN 356. I have received report from JB Teresa and had the opportunity to ask questions and assume patient care. Sitter at bedside. Pt verena johnson not eating dinner. Addendum: 04/05/21 at 1929 by Arie Roa RN Amended: Links added.
[2021-04-05] MEDS: morphine 2 MG/ML inj. syringe IV PRN (20:11)
--- NOTE | 2021-04-05 20:21 | NUR ---
Problems reprioritized. Patient report given, questions answered & plan of care reviewed with JB TAMAYO.
[2021-04-06 00:30] VITALS: BP 122/64
[2021-04-06] MEDS: LORazepam 2 mg/ml vial IV PRN ×3 (01:01→10:09)
[2021-04-06] MEDS: lactulose 20gm/30ml cup PO SCH ×3 (01:12→16:12)
[2021-04-06] MEDS: sodium bicarbonate (8.4%) inj. 100 MEQ in dextrose 5%-water 1,000 ML IV SCH (01:13)
[2021-04-06] MEDS: morphine 2 MG/ML inj. syringe IV PRN ×3 (05:34→17:01)
--- NOTE | 2021-04-06 06:35 | NUR ---
Problems reprioritized. Patient report given, questions answered & plan of care reviewed with JB Almanza. Addendum: 04/06/21 at 0635 by Arie Roa RN Amended: Links added.
[2021-04-06 07:00] VITALS: BP 87/52
[2021-04-06] MEDS: CefTRIAXone 2gm/D5W 50ml BAG 50 ML IV SCH (08:18)
[2021-04-06] MEDS: lactobacillus rhamnosus 10,000 MMU CELLS/CAPSULE PO SCH ×2 (08:19→20:00)
[2021-04-06] MEDS: rifaximin 550mg tablet PO SCH ×2 (08:19→20:00)
[2021-04-06] MEDS: multivitamins, therapeutics tablet PO SCH (08:19)
[2021-04-06] MEDS: docusate sod 100mg capsule PO SCH ×2 (08:19→20:00)
[2021-04-06] MEDS: pantoprazole 40 MG vial IV SCH (08:20)
[2021-04-06] MEDS: levoTHYROXINE sod inj. 100mcg/5 ml vial IV SCH (08:20)
--- NOTE | 2021-04-06 09:59 | NUR ---
F/u 04/06: Pt remains NPO. TC to RN to discuss recommendation for BSS with ST and/or tube feeding given pt now 12 days with inadequate nutrient intake. Noted pt continues to be documented as A/O x 1, confused, and resistive to care. RN states will d/w MD. TF recommendations below remain in place. Will continue to follow closely. Addendum: 04/06/21 at [address] Amended: Links added.
[2021-04-06] MEDS: folic acid 1mg/0.2ml inj IV SCH (10:10)
[2021-04-06 11:00] VITALS: BP 100/59
[2021-04-06 12:24] LABS: BASOPHILS % (AUTO) 0.7 % (0-1); LYMPHOCYTES # (AUTO) 0.7 X10'3 (1.1-4.8); LYMPHOCYTES % (AUTO) 18.8 % (21-51); MEAN CORPUSCULAR HEMOGLOBIN 30.7 PG (27.0-31.0); MEAN CORPUSCULAR HGB CONC 33.3 g/dL (33.0-36.5); MEAN CORPUSCULAR VOLUME 92.2 FL (78-98); MEAN PLATELET VOLUME 7.5 FL (7.4-10.4); MONOCYTES # (AUTO) 0.4 X10'3 (0-0.9); MONOCYTES % (AUTO) 11.5 % (2-12); NEUTROPHILS # (AUTO) 2.5 X10'3 (1.8-7.7); PLATELET COUNT 59 X10'3 (140-440); RED BLOOD COUNT 2.15 X10'6 (4.20-5.60); RED CELL DISTRIBUTION WIDTH 16.9 % (11.5-14.5); WHITE BLOOD COUNT 3.7 X10'3 (4.5-11.0)
[2021-04-06 12:29] LABS: ALBUMIN 2.3 G/DL (3.4-5.0); ANION GAP 12 (8-16); BLOOD UREA NITROGEN 15 MG/DL (7-18); BUN/CREATININE RATIO 7.1 (6.6-38.0); CALCIUM 7.5 MG/DL (8.5-10.1); CHLORIDE 118 MMOL/L (99-107); CREATININE 2.12 MG/DL (0.40-0.90); GLUCOSE 94 MG/DL (70-104); SODIUM 150 MMOL/L (135-145); TOTAL CARBON DIOXIDE 20.3 MMOL/L (24-32); eGFR 24 ML/MIN
[2021-04-06 12:31] LABS: HEMOGLOBIN 6.6 g/dl (12.0-16.0)
[2021-04-06 12:32] LABS: HEMATOCRIT 19.8 % (35.0-45.0)
[2021-04-06 12:42] LABS: POTASSIUM 2.8 MMOL/L (3.5-5.1)
[2021-04-06] MEDS: K and/or MAG REPLACEMENT MC SCH ×2 (12:49→20:00)
[2021-04-06] MEDS: thiamine inj. 100 MG in normal saline 100ml IV soln 100 ML IV SCH (12:59)
[2021-04-06] MEDS: dextrose 5%-water 1,000 ML IV SCH (16:11)
[2021-04-06 23:39] VITALS: BP 114/77
[2021-04-06 23:54] VITALS: BP 116/80
[2021-04-07] VITALS: BP 104/71
[2021-04-07 00:54] VITALS: BP 109/89
[2021-04-07 01:55] VITALS: BP 112/82
[2021-04-07] MEDS ORDERED: magnesium 2GM in 50ml NS 50 ML IV PRN ×2 (02:35→15:30)
[2021-04-07] MEDS ORDERED: potassium Cl 20 mEq SR tablet PO PRN ×4 (02:35→15:30)
[2021-04-07] MEDS ORDERED: potassium Cl 40MEQ/1/2NS 520ml 520 ML IV PRN ×3 (02:35→15:30)
[2021-04-07] MEDS ORDERED: magnesium 4gm in 100ml NS 100 ML IV PRN ×2 (02:35→15:30)
[2021-04-07] MEDS ORDERED: magnesium Cl slow-release 64mg tablet PO PRN ×2 (02:35→15:30)
[2021-04-07] MEDS: potassium Cl 40MEQ/1/2NS 520ml 520 ML IV PRN (04:03)
[2021-04-07] MEDS: LORazepam 2 mg/ml vial IV PRN ×2 (04:16→11:18)
--- NOTE | 2021-04-07 05:37 | NUR ---
rectal tube became dislodged later in the shift Addendum: 04/07/21 at 0542 by Haim Bishop RN Amended: Links added.
--- NOTE | 2021-04-07 06:20 | NUR ---
Patient in room GLEN 354. I have received report from JB Church and had the opportunity to ask questions and assume patient care.
[2021-04-07 06:30] VITALS: BP 104/61
--- NOTE | 2021-04-07 06:59 | NUR ---
Patient in room GLEN 354. I have received report from Archie MUHAMMAD and had the opportunity to ask questions and assume patient care.
--- NOTE | 2021-04-07 07:00 | NUR ---
Problems reprioritized. Patient report given, questions answered & plan of care reviewed with Parvin RN.
[2021-04-07] MEDS ORDERED: K and/or MAG REPLACEMENT MC SCH (08:00)
--- NOTE | 2021-04-07 08:54 | NUR ---
Pageconcepción PICC RN to let her know we will need a PICC today before she goes just waiting on MD to sign consent.
[2021-04-07] MEDS: folic acid 1mg/0.2ml inj IV SCH (10:01)
[2021-04-07 10:11] LABS: BASOPHILS % (AUTO) 0.6 % (0-1); EOSINOPHILS % (AUTO) 0.6 % (0-6); HEMATOCRIT 22.4 % (35.0-45.0); HEMOGLOBIN 7.3 g/dl (12.0-16.0); LYMPHOCYTES # (AUTO) 0.7 X10'3 (1.1-4.8); LYMPHOCYTES % (AUTO) 15.6 % (21-51); MEAN CORPUSCULAR HEMOGLOBIN 30.2 PG (27.0-31.0); MEAN CORPUSCULAR HGB CONC 32.6 g/dL (33.0-36.5); MEAN CORPUSCULAR VOLUME 92.7 FL (78-98); MEAN PLATELET VOLUME 7.5 FL (7.4-10.4); MONOCYTES # (AUTO) 0.6 X10'3 (0-0.9); MONOCYTES % (AUTO) 12.5 % (2-12); NEUTROPHILS # (AUTO) 3.4 X10'3 (1.8-7.7); NEUTROPHILS % (AUTO) 70.7 % (42-75); PLATELET COUNT 57 X10'3 (140-440); RED BLOOD COUNT 2.41 X10'6 (4.20-5.60); RED CELL DISTRIBUTION WIDTH 16.6 % (11.5-14.5); WHITE BLOOD COUNT 4.8 X10'3 (4.5-11.0)
[2021-04-07] MEDS: CefTRIAXone 2gm/D5W 50ml BAG 50 ML IV SCH (10:14)
[2021-04-07] MEDS: thiamine inj. 100 MG in normal saline 100ml IV soln 100 ML IV SCH (10:14)
[2021-04-07] MEDS: pantoprazole 40 MG vial IV SCH (10:14)
[2021-04-07] MEDS: levoTHYROXINE sod inj. 100mcg/5 ml vial IV SCH (10:14)
[2021-04-07] MEDS: multivitamins, therapeutics tablet PO SCH (10:15)
[2021-04-07] MEDS: lactulose 20gm/30ml cup PO SCH ×3 (10:15→15:30)
[2021-04-07] MEDS: rifaximin 550mg tablet PO SCH ×2 (10:15→20:00)
[2021-04-07] MEDS: docusate sod 100mg capsule PO SCH ×2 (10:15→20:00)
[2021-04-07] MEDS: lactobacillus rhamnosus 10,000 MMU CELLS/CAPSULE PO SCH ×2 (10:15→20:00)
[2021-04-07 10:31] LABS: ALANINE AMINOTRANSFERASE 20 U/L (12-78); ALBUMIN/GLOBULIN RATIO 0.8 (1.1-1.5); ALKALINE PHOSPHATASE 108 IU/L (46-116); ANION GAP 10 (8-16); ASPARTATE AMINO TRANSFERASE 61 U/L (10-37); BILIRUBIN,TOTAL 2.5 MG/DL (0.1-1.0); BLOOD UREA NITROGEN 16 MG/DL (7-18); CALCIUM 7.1 MG/DL (8.5-10.1); CHLORIDE 119 MMOL/L (99-107); CREATININE 2.27 MG/DL (0.40-0.90); GLUCOSE 90 MG/DL (70-104); SODIUM 147 MMOL/L (135-145); TOTAL CARBON DIOXIDE 17.8 MMOL/L (24-32); TOTAL PROTEIN 4.6 G/DL (6.4-8.2); eGFR 22 ML/MIN
[2021-04-07 11:00] VITALS: BP 102/66
[2021-04-07] MEDS: dextrose 5%-water 1,000 ML IV SCH (11:50)
--- NOTE | 2021-04-07 12:35 | NUR ---
Repaged PICC RN for update on getting PICC today.
--- NOTE | 2021-04-07 14:27 | NUR ---
TPN consult: Pt s/p f/u BSS with ST recs full liquid diet though pt very lethargic and may need alternative nutrition. TC with RN to discuss nutrition options. RN reports MD is planning on getting a PICC placed for TPN though agrees to PPN if PICC is unable to get placed. D/w RN recommendation for pt to receive NG tube for EN rather than PN given functional gut. Per RN it's unlikely that an NG tube will be able to be placed d/t patient's mentation. Will keep TF recommendations in place in case an NG tube is able to be placed. TPN and PPN recommendations have been d/w clinical pharmacist. Recommend electrolyte formula as K is just elevated following replacement. Noted pt continues to refuse meals. Pt with a low Chris of 12. Per WOC pt with IAD to sacrum though with a rectal tube in place. LBM 8/2, documented with 400 mL stool output per I&O. Diarrhea likely r/t routine Lactulose. Will continue to follow closely. Recommendations: 1) Advance to regular diet as medically indicated; F/u BSS with ST prior to PO diet advancement given pt A/O x 1, confused, and obtunded 2) IF to get a PICC and receive TPN, continuous 2:1 Clinimix-E 5/15 with goal rate of 90 mL/hr with additional 100 mL 20% intralipids at 8.33 mL/hr for 12 hours. In total to provide 2260 mL total volume/day, 1733.6 kcal, 108 g AA, 324 g dextrose (3.31 mg/kg/min dext load), and 20 g lipids 3) IF unable to get PICC and to receive PPN, continuous 2:1 Clinimix-E 4.25/10 with goal rate of 110 mL/hr with additional 100 mL 20% intralipids at 8.33 mL/hr for 12 hours. In total to provide 2740 mL total volume/day, 1546 kcal, 112 g protein, 264 g dextrose (2.69 mg/kg/min dext load), and 20 g lipids 5) Consider TF for estimated nutrient needs given function gut. IF TF, continuous Vital AF with goal rate of 55 mL/hr. To begin at 25 mL/hr and advance by 30 mL Q8H as tolerated 6) IF TF, additional water flush per MD given liver status 7) Prealbumin and TG q Saturday/ 8) Daily scaled weights 9) Continue routine Thiamine, Folic acid, and MVI for EtOH hx 10) Bowel care per rx 11) Continue alternative nutrition until pt with steady average PO intake greater than 65% of meals Addendum: 04/07/21 at [address] Amended: Links added.
[2021-04-07] MEDS: morphine 2 MG/ML inj. syringe IV PRN (15:30)
[2021-04-07] MEDS ORDERED: Dextrose 10%-water IV solution 1,000 ML IV PRN (15:30)
--- NOTE | 2021-04-07 18:40 | NUR ---
Problems reprioritized. Patient report given, questions answered & plan of care reviewed with JB Church.
[2021-04-07] MEDS ORDERED: MVI, adult No.4 with vit. K 5 ML, ZINC/COPPER/MANGANESE/SELENIUM 0.5 ML, chromic chlori... IV SCH ×4 (19:00)
[2021-04-07 19:42] LABS: MAGNESIUM 1.5 MG/DL (1.5-2.4); PHOSPHORUS 3.5 MG/DL (2.3-4.5); POTASSIUM 4.1 MMOL/L (3.5-5.1); PREALBUMIN 6.8 MG/DL (19-36)
[2021-04-07 20:00] VITALS: BP 130/99
[2021-04-07] MEDS: K and/or MAG REPLACEMENT MC SCH (20:00)
[2021-04-07] MEDS ORDERED: fat emulsion 20% inj. 100 ML IV SCH (20:00)
[2021-04-08] VITALS: BP 105/62
[2021-04-08] MEDS: morphine 2 MG/ML inj. syringe IV PRN ×4 (01:45→21:15)
[2021-04-08] MEDS: lactulose 20gm/30ml cup PO SCH (01:45)
[2021-04-08 06:03] LABS: BASOPHILS % (AUTO) 0.8 % (0-1); EOSINOPHILS # (AUTO) 0.1 X10'3 (0-0.9); EOSINOPHILS % (AUTO) 2.4 % (0-6); HEMATOCRIT 23.6 % (35.0-45.0); HEMOGLOBIN 7.8 g/dl (12.0-16.0); LYMPHOCYTES # (AUTO) 0.7 X10'3 (1.1-4.8); LYMPHOCYTES % (AUTO) 15.1 % (21-51); MEAN CORPUSCULAR HEMOGLOBIN 31.3 PG (27.0-31.0); MEAN CORPUSCULAR HGB CONC 32.9 g/dL (33.0-36.5); MEAN CORPUSCULAR VOLUME 95.2 FL (78-98); MEAN PLATELET VOLUME 7.6 FL (7.4-10.4); MONOCYTES # (AUTO) 0.6 X10'3 (0-0.9); MONOCYTES % (AUTO) 13.6 % (2-12); NEUTROPHILS # (AUTO) 3.2 X10'3 (1.8-7.7); NEUTROPHILS % (AUTO) 68.1 % (42-75); PLATELET COUNT 56 X10'3 (140-440); RED BLOOD COUNT 2.48 X10'6 (4.20-5.60); WHITE BLOOD COUNT 4.7 X10'3 (4.5-11.0)
[2021-04-08 06:15] LABS: ALANINE AMINOTRANSFERASE 18 U/L (12-78); ALBUMIN 2.1 G/DL (3.4-5.0); ALBUMIN/GLOBULIN RATIO 0.9 (1.1-1.5); ALKALINE PHOSPHATASE 118 IU/L (46-116); ANION GAP 11 (8-16); ASPARTATE AMINO TRANSFERASE 64 U/L (10-37); BILIRUBIN,TOTAL 2.1 MG/DL (0.1-1.0); BLOOD UREA NITROGEN 20 MG/DL (7-18); BUN/CREATININE RATIO 8.1 (6.6-38.0); CALCIUM 7.6 MG/DL (8.5-10.1); CHLORIDE 123 MMOL/L (99-107); CREATININE 2.47 MG/DL (0.40-0.90); GLUCOSE 97 MG/DL (70-104); MAGNESIUM 1.6 MG/DL (1.5-2.4); PHOSPHORUS 4.1 MG/DL (2.3-4.5); SODIUM 152 MMOL/L (135-145); TOTAL CARBON DIOXIDE 17.6 MMOL/L (24-32); TOTAL PROTEIN 4.5 G/DL (6.4-8.2); eGFR 20 ML/MIN
[2021-04-08 06:30] VITALS: BP 105/62
--- NOTE | 2021-04-08 06:40 | NUR ---
Patient in room GLEN 354. I have received report from JB Church and had the opportunity to ask questions and assume patient care.
[2021-04-08] MEDS: K and/or MAG REPLACEMENT MC SCH (07:43)
[2021-04-08] MEDS: potassium Cl 40MEQ/1/2NS 520ml 520 ML IV PRN (08:26)
[2021-04-08 08:54] LABS: OCCULT BLOOD STOOL NEGATIVE (Neg)
[2021-04-08] MEDS ORDERED: morphine 2 MG/ML inj. syringe IV PRN (10:20)
[2021-04-08 11:00] VITALS: BP 102/63
--- NOTE | 2021-04-08 12:51 | NUR ---
F/u: Noted pt has been made NPO and code status has changed to DNR with comfort care. [facility] 04/06. Will continue to follow per LOS. Recommendations: 1) Bowel care per comfort care measures Addendum: 04/08/21 at [address] Amended: Links added.
[2021-04-08] MEDS: LORazepam 2 mg/ml vial IV PRN ×2 (14:12→21:15)
[2021-04-08 18:30] VITALS: BP 106/62
--- NOTE | 2021-04-09 | NUR ---
Patient in room GLEN 356. I have received report from Parvin MUHAMMAD and had the opportunity to ask questions and assume patient care. Addendum: 04/09/21 at 0623 by Alla Alston RN Amended: Links added.
--- NOTE | 2021-04-09 00:30 | NUR ---
Problems reprioritized. Patient report given, questions answered & plan of care reviewed with JB Gold.
[2021-04-09] MEDS: morphine 2 MG/ML inj. syringe IV PRN ×4 (05:04→23:04)
--- NOTE | 2021-04-09 06:23 | NUR ---
Problems reprioritized. Patient report given, questions answered & plan of care reviewed with Noemi MUHAMMAD. Addendum: 04/09/21 at 0623 by Alla Alston RN Amended: Links added.
--- NOTE | 2021-04-09 06:30 | NUR ---
received report from petrona rodriguez
[2021-04-09 07:00] VITALS: BP 88/59
--- NOTE | 2021-04-09 10:57 | NUR ---
morphine not scanning into meditech, checked med prior to admin, continue to monitor
[2021-04-09] MEDS: LORazepam 2 mg/ml vial IV PRN ×3 (11:50→23:11)
--- NOTE | 2021-04-09 18:21 | NUR ---
GAVE REPORT TO JB MADRIGAL
--- NOTE | 2021-04-09 18:37 | NUR ---
Patient in room GLEN 354. I have received report from JUNIOR MUHAMMAD and had the opportunity to ask questions and assume patient care. Addendum: 04/09/21 at 1837 by Lisa Mcadams RN Amended: Links added.
[2021-04-09 20:00] VITALS: BP 90/55
--- NOTE | 2021-04-09 22:25 | NUR ---
REPOSITIONED TO COMFORT.
--- NOTE | 2021-04-09 22:25 | NUR ---
AWOKE STARTED MOANING MEDICATED WITH MS 2MG FOR PAIN AT THIS TIME. TOLERATED WELL.
--- NOTE | 2021-04-09 23:13 | NUR ---
pt restless medicated with 2mg ativan for this. tolerated well.
--- NOTE | 2021-04-10 02:20 | NUR ---
respositioned no s&s of distress.
[2021-04-10] MEDS: morphine 2 MG/ML inj. syringe IV PRN ×4 (04:40→17:27)
--- NOTE | 2021-04-10 04:47 | NUR ---
repositioned and medicated with 2mg of morphine.
--- NOTE | 2021-04-10 06:13 | NUR ---
Problems reprioritized. Patient report given, questions answered & plan of care reviewed with FRIEDA MUHAMMAD. Addendum: 04/10/21 at 0613 by Lisa Mcadams RN Amended: Links added.
[2021-04-10 07:00] VITALS: BP 84/42
--- NOTE | 2021-04-10 07:00 | NUR ---
Patient in room GLEN 354. I have received report from Lisa MUHAMMAD and had the opportunity to ask questions and assume patient care.
--- NOTE | 2021-04-10 11:06 | NUR ---
Sirena Harper phoned for update, given. Will continue to monitor.
--- NOTE | 2021-04-10 11:22 | NUR ---
PAGER ID: [phone] MESSAGE: TonyaSurg [phone] Re: Selena 354A can we DC sitter orders ? Addendum: 04/10/21 at 1213 by Italia aGray RN Received orders to DC sitter
--- NOTE | 2021-04-10 18:47 | NUR ---
Patient in room GLEN 354. I have received report from FRIEDA MUHAMMAD and had the opportunity to ask questions and assume patient care. Addendum: 04/10/21 at 1847 by Lisa Mcadams RN Amended: Links added.
[2021-04-10 19:00] VITALS: BP 82/42
--- NOTE | 2021-04-10 19:15 | NUR ---
Problems reprioritized. Patient report given, questions answered & plan of care reviewed with Lisa MUHAMMAD.
[2021-04-11] MEDS: morphine 2 MG/ML inj. syringe IV PRN ×4 (00:56→14:52)
--- NOTE | 2021-04-11 00:59 | NUR ---
MEDICATED FOR PAIN STARTED TO WAKE UP AND MOANING.
--- NOTE | 2021-04-11 02:30 | NUR ---
pt resting eyes closed without changes at this time.
--- NOTE | 2021-04-11 04:44 | NUR ---
pt resting without changes.
--- NOTE | 2021-04-11 05:15 | NUR ---
medicated for pain with morphine iv moaned with turning inc urine rubalcava had kinked approx 45cc and noted 8cc in the bag emptied for total shift urine output of 53cc and mouth care done. Positioned to comfort with pillows.
--- NOTE | 2021-04-11 05:25 | NUR ---
skin care done Calazime cream applied to bottom.
--- NOTE | 2021-04-11 06:52 | NUR ---
Problems reprioritized. Patient report given, questions answered & plan of care reviewed with DAVID MUHAMMAD. Addendum: 04/11/21 at 0652 by Lisa Mcadams RN Amended: Links added.
[2021-04-11 07:00] VITALS: BP 73/40
--- NOTE | 2021-04-11 11:00 | NUR ---
Problems reprioritized. Patient report given, questions answered & plan of care reviewed with Echo MUHAMMAD.
--- NOTE | 2021-04-11 11:08 | NUR ---
Patient in room [facility]. I have received report from JB HERNANDEZ and had the opportunity to ask questions and assume patient care.
[2021-04-11] MEDS: LORazepam 2 mg/ml vial IV PRN (11:45)
--- NOTE | 2021-04-11 17:22 | NUR ---
Called patient's daughter Katina to let her know patient has passed. Patient daughter began crying and hung up.
--- NOTE | 2021-04-11 17:38 | NUR ---
Dr Varela was notified 1723 of patient . [place], [employer] called and spoke to daughter Katina. Katina to contact grandmother to find out if she would like to see patient before mortuary pickup.
--- NOTE | 2021-04-11 17:49 | NUR ---
Spoke to daughter Katina and ok to release body to mortuary. No visitors will be coming. Ok to call patient's boyfriend Leroy. Attempted to call Leroy and no answer.
--- NOTE | 2021-04-11 17:54 | NUR ---
[facility] called
--- NOTE | 2021-04-11 18:35 | NUR ---
Patient in room [facility]. I have received report from JB Dodge and had the opportunity to ask questions and assume patient care.
--- NOTE | 2021-04-11 18:44 | NUR ---
Problems reprioritized. Patient report given, questions answered & plan of care reviewed with JB Thornton.
--- NOTE | 2021-04-11 18:45 | NUR ---
RN IS TO DOCUMENT YES TO ALL APPLICABLE AREAS Pronouncement of : 1. Time Physician Notified: 172 Dr. Varela 2. Date of : 04/11/21 3. Time of : 1717 4. DNR/Withdraw life support documented: DNR yes 5. Monitor strip has been placed on chart: Yes 6. Assessment process is of one-minute duration and includes following criteria: a) Patient is unresponsive to all stimuli: Yes b) Pupils fixed and non-reactive: Yes c) Auscultation of precordium reveals absence of heart tones: Yes d) Auscultation of lungs reveals absence of breath sounds: Yes e) Absence of blood pressure / all vital signs: Yes f) QRS complexes are not present on monitor / EKG strip: Yes g) Pacer spikes without capture: 4. Comments:
--- NOTE | 2021-04-11 19:40 | NUR ---
Patric Blandon, personnel from [employer], here to collect remains. Pt belongings: family photo, hair oil/conditioner, and martha ferreira sent with patient.
== END 2021-04-11 19:40 | DRG 871 ==
LOC: ER 16:22 → ED HOLD 20:59 → UNDOADMIN 20:59 → ED HOLD 21:09 → PCU 3S 03-26 09:26 → SUR 3N 04-01 16:36
PROVIDERS: ADMIT Family Medicine; ATTEND Family Medicine
PROC: 0W9G3ZZ Drainage of Peritoneal Cavity, Percutaneous Approach (ICD-10-PCS; principal; 2021-03-28)
PROC: 0W9G3ZZ Drainage of Peritoneal Cavity, Percutaneous Approach (ICD-10-PCS; 2021-04-05)
PROC: 30233N1 Transfusion of Nonautologous Red Blood Cells into Peripheral Vein, Percutaneous Approach (ICD-10-PCS; 2021-04-06)
PROC: 02HV33Z Insertion of Infusion Device into Superior Vena Cava, Percutaneous Approach (ICD-10-PCS; 2021-04-07)
PROC: B548ZZA Ultrasonography of Superior Vena Cava, Guidance (ICD-10-PCS; 2021-04-07)
DX: A40.3 Sepsis due to Streptococcus pneumoniae (principal); G92 Toxic encephalopathy; J18.9 Pneumonia, unspecified organism; N18.6 End stage renal disease; E87.2 Acidosis; F10.230 Alcohol dependence with withdrawal, uncomplicated; K76.6 Portal hypertension; N17.9 Acute kidney failure, unspecified; N39.0 Urinary tract infection, site not specified; E87.0 Hyperosmolality and hypernatremia; E03.9 Hypothyroidism, unspecified; D69.59 Other secondary thrombocytopenia; D63.8 Anemia in other chronic diseases classified elsewhere; E87.5 Hyperkalemia; Z66 Do not resuscitate; Z51.5 Encounter for palliative care; E83.39 Other disorders of phosphorus metabolism; E88.09 Other disorders of plasma-protein metabolism, not elsewhere classified; E83.42 Hypomagnesemia; E86.1 Hypovolemia; E87.6 Hypokalemia; K21.9 Gastro-esophageal reflux disease without esophagitis; K42.9 Umbilical hernia without obstruction or gangrene; K70.31 Alcoholic cirrhosis of liver with ascites; K72.90 Hepatic failure, unspecified without coma; Z91.19 Patient's noncompliance with other medical treatment and regimen; Z79.899 Other long term (current) drug therapy
CPT/HCPCS: 32555; 36415; 36430; 36573; 36600; 49083; 70450; 71250; 74176; 80048; 80053; 80061; 80305; 80320; 81001; 81025; 82140; 82272; 82550; 82803; 82948; 83036; 83605; 83690; 83735; 83880; 84100; 84132; 84134; 84157; 84443; 84478; 85007; 85008; 85018; 85025; 85610; 85730; 86870; 86880; 86885; 86900; 86901; 86902; 86922; 87040; 87070; 87077; 87081; 87088; 87186; 89051; 92508; 92616; 93005; 93306; 96361; 96365; 96368; 96375; 97110; 97112; 97161; 97530; 97535; 99285; C9113; G0378; J0690; J0696; J1200; J1630; J2060; J2270; J2405; J2543; J2560; J3411; J3475; J3480; J3490; J7030; J7070; P9016; P9047